=== PATIENT | female | born 1955 | race African-American/Black ===

== ENCOUNTER 2017-11-14 13:52 | Inpatient (IN) | payer MEDICARE, MEDICAID ==
[2017-11-14 14:30] LABS: HEMATOCRIT 49.4 % (36.0-47.0); HEMOGLOBIN 16.1 g/dL (12.0-15.5); MEAN CORPUSCULAR HEMOGLOBIN 25.5 pg (27.0-33.4); MEAN CORPUSCULAR HGB CONC 32.6 g/dL (32.0-36.0); MEAN CORPUSCULAR VOLUME 78 fl (80-97); PLATELET COUNT 338 10^3/uL (150-450); RED BLOOD COUNT 6.33 10^6/uL (3.72-5.28); WHITE BLOOD COUNT 18.8 10^3/uL (4.0-10.5)
[2017-11-14 14:40] LABS: ALANINE AMINOTRANSFERASE 18 U/L (9-52); ALKALINE PHOSPHATASE 127 U/L (38-126); ASPARTATE AMINO TRANSFERASE 58 U/L (14-36); BILIRUBIN,DIRECT 0.5 mg/dL (0.0-0.4); BLOOD UREA NITROGEN 34 mg/dL (7-20); CALCIUM 10.6 mg/dL (8.4-10.2); CHLORIDE 98 mmol/L (98-107); CREATINE KINASE 897 U/L (30-135); GLUCOSE 380 mg/dL (75-110); POTASSIUM 3.8 mmol/L (3.6-5.0); TOTAL PROTEIN 8.4 g/dL (6.3-8.2)
[2017-11-14 14:45] LABS: CARBON DIOXIDE 14 mmol/L (22-30); SODIUM 143.2 mmol/L (137-145)
[2017-11-14 14:46] LABS: ANION GAP 31 (5-19)
[2017-11-14] MEDS ORDERED: NORMAL SALINE 1000 ML 1,000 ML IV PRN (14:51)
--- NOTE | 2017-11-14 14:58 | ER Document Report ---
ED Neuro Symptoms/Deficit - General Chief Complaint: Altered Mental Status Stated Complaint: ALTERED MENTAL STATUS Time Seen by Provider: 11/14/17 14:15 Notes: The patient is a 62-year-old female, past medical history prior CVA with mild residual left-sided weakness, presents by EMS after 4 days of altered mental status and worsening left-sided weakness. She also has a forced left gaze palsy. Patient is confused and unable to provide any additional history. Son is in the ER and is deaf, but some history obtained using Close. Patient denies any headache, chest pain, shortness of breath, fevers or urinary symptoms. TRAVEL OUTSIDE OF THE [place] IN LAST 30 DAYS: No - Related Data Allergies/Adverse Reactions: No Known Allergies Allergy (Unverified 10/19/14 18:46) Past Medical History - General Information source: Patient, Relative - son Cannot obtain history due to: Altered mental status - Social History Smoking Status: Unknown if Ever Smoked Family History: Reviewed & Not Pertinent - Past Medical History Cardiac Medical History: Reports: Hx Hypercholesterolemia, Hx Hypertension Neurological Medical History: Reports: Hx Cerebrovascular Accident Endocrine Medical History: Reports: Hx Diabetes Mellitus Type 2 - Immunizations Hx Diphtheria, Pertussis, Tetanus Vaccination: Yes Review of Systems - Review of Systems -: Yes ROS unobtainable due to patient's medical condition Physical Exam - Notes Notes: PHYSICAL EXAMINATION: GENERAL: No acute distress. HEAD: Atraumatic, normocephalic. EYES: Forced left gaze palsy. Pupils equal round and reactive to light, sclera anicteric, conjunctiva are normal. ENT: nares patent, oropharynx clear without exudates. Moist mucous membranes. NECK: Normal range of motion, supple without lymphadenopathy LUNGS: Breath sounds clear to auscultation bilaterally and equal. No wheezes rales or rhonchi. HEART: Regular rate and rhythm without murmurs ABDOMEN: Soft, nontender, normoactive bowel sounds. No guarding, no rebound. No masses appreciated. EXTREMITIES: 5/5 strength in RUE and RLE. Strong distal pulses in all 4 extremities. Contracted LUE. Unable to move LUE or LLE. NEUROLOGICAL: Decreased sensation in LUE and LLE. PSYCH: Normal mood, normal affect. SKIN: Warm, Dry, normal turgor, no rashes or lesions noted. Course - Re-evaluation Re-evalutation: Patient with a forced left gaze palsy and increased weakness of her left arm and legs with sensory loss. CT head shows chronic changes, but no acute findings. Her last known normal was 4 days ago, so she is not a TPA candidate. ABCD2 score is 7. Patient also is found to have CHRISTELLE and rhabdo, most likely from immobility as she lives by herself. She has a leukocytosis of 18, but her chest x-ray did not show any acute findings. Her son is concerned that she is unable to take care of herself. Pt continues to urinate just before a straight cath could be placed. Urine is still pending, but Rocephin started due to tachycardia, leukocytosis and foul-smelling urine on bed. Will continue to try to obtain. Pt intermittently agitated and pulling off her monitoring equipment. Small doses of haldol provided to patient to help keep her safe. 11/14/17 18:[address] Martinez and will admit patient as inpatient to [facility]. - Laboratory Result Diagrams: 11/14/17 13:27 11/14/17 13:27 Laboratory results interpreted by me: 11/14/17 11/14/17 13:27 14:05 Carbon Dioxide 14 L Anion Gap 31 H BUN 34 H Creatinine 1.77 H Est GFR ( Amer) 35 L Est GFR (Non-Af Amer) 29 L Glucose 380 H POC Glucose 357 H Calcium 10.6 H Direct Bilirubin 0.5 H AST 58 H Alkaline Phosphatase 127 H Creatine Kinase 897 H Total Protein 8.4 H - Diagnostic Test Radiology reviewed: Image reviewed, Reports reviewed Radiology results interpreted by me: Head CT: chronic changes worsening from prior study. No acute findings. CXR: NAD - EKG Interpretation by Me EKG shows normal: Sinus rhythm, [place], Intervals, QRS Complexes, ST-T Waves Rate: Tachycardia ED Alteplase Inc/Exc Criteria - Date/Time patient last known well: Date/Time: 11/10/17 - Date/Time patient arrived in ED: _: 11/14/17 14:00 - Inclusion Criteria: 1: Patient presented to ED within 3 hours of acute ischemic stroke symptom onset ? -: No 2: Did baseline CT exclude intracranial hemorrhage and/or other risk factors? -: Yes 3: Is the age of the patient 18 years of age or greater? -: No : If any of the above questions are answered "NO" then stop, patient is not a candidate for Alteplase, : If all of the above questions are answered "YES" then continue with Exclusion Criteria. - Exclusion Criteria: 1: Is there evidence of intracranial hemorrhage on baseline CT? 2: Is there suspicion of subarachnoid hemorrhage (even if CT negative)? 3: Is there a history of serious head trauma, recent previous stroke or CO within 3 months? 4: Does the patient have a clinical presentation consistent with CO or post-CO pericarditis? 5: Is there history of intracranial hemorrhage? 6: On repeated measurement is Systolic BP greater than 185mmHg or Diastolic BP greater that 110 mmHg and is aggressive treatment needed to reduce blood pressure to these limits (e.g. constant infusion of an anti-hypertensive)? 7: Did the patient awake with stroke symptoms? 8: Has the patient had a lumbar puncture or an arterial puncture at a non- compressile site within 7 days? 9: With in the last 14 days did the patient have surgery or major trauma? 10: Is the patient or less than 2 weeks? 11: Was there any active bleeding or acute trauma? 12: Does the patient have intracranial neoplasm, arteriovenous malformation or aneurysm? 13: Does the patient have abnormal glucose (less than 50 or greater than 400mg/ dl)? Record glucose in Comment. 14: Patient has rapidly improving symptoms at the time Alteplase is to be Administered. 15: Does the patient have any risks for bleeding, including but not limited to: a.: Current use of Coumadin with PT greater than 15 seconds or INR greater than 1.7. b.: Current use of Pradaxa (Dabigatran). c.: Heparin administereed within the past 48 hours and PTT elevated. d.: Platelet count less than 100,000/mm. e.: Major surgery or serious trauma within 14 days. f.: Gastrointestinal or gynecological urinary bleeding within 14 days. g.: Myocardial Infarction (CO) within 3 months. : If the answer to any of the above questions is "YES" then stop, the patient is not a candidate for Alteplase. : If the answer to all of the above questions is "NO" then the patient may be eligible for the Administration of Alteplase. : If the patient is noted to have seizure activity at onset of Stroke symptoms; Consult Neurologist for further evaluation. - The patient is: -: Included and is eligible to receive Alteplase. *Initiate bed placement at higher level of care* --: No Reviewd risks & benefits of thrombolytic therapy: I have reviewed the risks and benefits of thrombolytic therapy with the patient and/or his/her family. Yes -: Excluded and not eligible to receive Alteplase for the above exclusions. -: Excluded and not eligible to receive Alteplase for other reasons (specify in comments): - Diagnosis of TIA: -: Patient presented with transient symptoms that are now resolved and no other neurologic findings are currently present. List symptoms in comments. -: Patient is NOT a candidate for tPA. -: ____(put name in comment) has been consulted for admission and continued evaluation of risk factor assessment. ED NIH Stroke Scale - NIH Stroke Scale When completed:: Before Alteplase *: 1. NIH scale should be completed with appropriate accompanying assessment tools. *: 2. The NIH should reflect what the patient is capable of doing and should not be coached by the clinician. 1a. Level of Consciousness: 0=Alert;keenly responsive -: 1=Drowsy -: 2=Obtunded -: 3=Coma/unresponsive or reflex to noxious stimuli. 1a. Responses: 0 1b. Orientation Questions: a. What month is it? -: b. How old are you? -: 0=Answers both questions correctly. -: 1=Answers one question correctly or patient is intubated or has orotracheal trauma. -: 2=Answers neither question correctly. 1b. Responses: 2 1c. Response to commands: a. Open and close eyes? -: b. Director Internal Communications and release hand? -: Credit is given despite weakness. Demonstration of task is permitted. Substitute command if hands cannot be used. -: 0=Performs both tasks correctly -: 1=Performs one task correctly -: 2=Performs neither task correctly 1c. Responses: 0 2. Gaze: Establish eye contact and instruct patient to "Follow my finger" -: 0=Normal -: 1=Partial gaze palsy. Gaze is abnormal in one or both eyes, but where forced deviation or total gaze paresis is not present. -: 2=Forced deviation or total gaze paresis. 2. Responses: 2 3. Visual Schaeffer: Sees fingers in all four quadrants. -: 0=No visual loss. -: 1=Partial hemianopsia. -: 2=Complete hemianopsia. -: 3=Bilateral hemianopsia (including Cortical blindness) 3. Responses: 0 4. Facial Movement: Instruct patient to: -: a. Show me your teeth -: b. Raise your eyebrows -: c. Close your eyes -: d. Smile -: 0=Normal symmetrical movement -: 1=Minor paralysis (flattened nasolabial fold, asymmetry on smiling). -: 2=Partial paralysis (total or near total paralysis of lower face). -: 3=Complete paralysis of upper and lower face 4. Responses: 1 5. Motor functions (left arm): Alternate sides and extend each arm with palms down (90 degrees if sitting or 45 degrees for supine). -: 0=No drift;limb holds for full 10 seconds. -: 1=Drift; limb holds but drifts down before full 10 seconds, but does not hit bed. -: 2=Some effort against gravity; limb cannot get to or maintain position. -: 3=No effort against gravity; limb falls. -: 4=No movement. -: UN=Amputation, joint fusion, explain in comments. 5. Responses (left arm): 3 5. Motor Functions (right arm): Alternate sides and extend each arm with palms down (90 degrees if sitting or 45 degrees for supine). -: 0=No drift;limb holds for full 10 seconds. -: 1=Drift; limb holds but drifts down before full 10 seconds, but does not hit bed. -: 2=Some effort against gravity; limb cannot get to or maintain position. -: 3=No effort against gravity; limb falls. -: 4=No movement. -: UN=Amputation, joint fusion, explain in comments. 5. Responses (right arm): 0 6. Motor Functions (left leg): With patient lying supine, alternate sides and extend each leg (30 degrees always while supine). -: 0=No drift, leg holds position for full 5 seconds -: 1=Drift; leg falls before full 5 seconds but does not hit bed. -: 2=Some effort against gravity, leg falls to bed but some effort against gravity. -: 3=No effort against gravity, leg falls to bed immediately. -: 4=No movement. -: UN=Amputation, joint fusion; explain in comments. 6. Responses (left leg): 3 6. Motor Functions (right leg): With patient lying supine, alternate sides and extend each leg (30 degrees always while supine). -: 0=No drift, leg holds position for full 5 seconds -: 1=Drift; leg falls before full 5 seconds but does not hit bed. -: 2=Some effort against gravity, leg falls to bed but some effort against gravity. -: 3=No effort against gravity, leg falls to bed immediately. -: 4=No movement. -: UN=Amputation, joint fusion; explain in comments. 6. Responses (right leg): 0 7. Limb Ataxia: With eyes open instruct patient to: -: a. "Touch your finger to your nose". -: b. "Touch your heel to your bullard" -: 0=Absent -: 1=Present in one limb. -: 2=Present in two limbs. -: UN=Amputation or joint fusion; explain in comments. 7. Responses: 0 8. Sensory: Test sensation using pinprick or noxious stimuli. Test as many body parts as possible. -: 0=Normal;no sensory loss -: 1=Mile to moderate sensory loss (patient feels pin prick but is less sharp on affected side). -: 2=Severe or total sensory loss. 8. Responses: 1 9. Best Language: Instruct patient to: -: a. "Describe what you see in this picture." -: b. "Name the items in this picture." -: c. "Read these sentences." -: 0=No aphasia, normal -: 1=Mild to moderate aphasia. -: 2=Severe aphasia -: 3=Mute, global aphasia, no usable speech or auditory comprehension. 9. Responses: 2 10. Articulation, Dysarthia: Instruct patient to: -: "Read these words" or "Repeat these words" -: 0=Normal -: 1=Mild to moderate; patient may slur some words but can be understood without difficulty. -: 2=Severe; patients speech so slurred as to be unintelligible in the absence of dysphasia. -: UN=Intubated or other physical barrier, explain in comments. 10. Responses: 2 11. Extinction or inattention: 0=No abnormality -: 1= Visual, tactile, auditory, spatial, or personal inattention or extinction to bilateral simulation in one or the sensory modalities. -: 2=Profound ej-inattention or ej-inattention to more than one modality; does not recognize own hand. 11. Responses: 0 Total Score: 16 Discharge - Discharge Clinical Impression: CHRISTELLE (acute kidney injury) CVA (cerebral vascular accident) Qualifiers: CVA mechanism: unspecified Qualified Code(s): I63.9 - Cerebral infarction, unspecified Rhabdomyolysis Qualifiers: Rhabdomyolysis type: non-traumatic Qualified Code(s): M62.82 - Rhabdomyolysis Condition: Stable Disposition: ADMITTED INPATIENT Admitting Provider: [facility] Admitted: [facility]
[2017-11-14 14:59] LABS: ABSOLUTE LYMPHOCYTES# (MANUAL) 1.1 10^3/uL (0.5-4.7); ABSOLUTE MONOCYTES # (MANUAL) 0.4 10^3/uL (0.1-1.4); ABSOLUTE NEUTROPHILS# (MANUAL) 17.3 10^3/uL (1.7-8.2); BASOPHILS % (MANUAL) 0 % (0-2); EOSINOPHILS % (MANUAL) 0 % (0-6); LYMPHOCYTES % (MANUAL) 6 % (13-45); MONOCYTES % (MANUAL) 2 % (3-13); SEGMENTED NEUTROPHILS % (MAN) 92 % (42-78); TOTAL CELLS COUNTED 100
--- NOTE | 2017-11-14 14:59 | EKG REPORT ---
SEVERITY:- ABNORMAL ECG - SINUS RHYTHM LEFT ATRIAL ABNORMALITY LVH WITH SECONDARY REPOLARIZATION ABNORMALITY : Confirmed by: Cachorro Olivera MD 14-Nov-2017 14:59:11
[2017-11-14 15:03] LABS: TOXIC GRANULATION 1+; TOXIC VACUOLATION PRESENT
[2017-11-14 15:04] LABS: ANISOCYTOSIS SLIGHT; HYPOCHROMASIA SLIGHT; OVALOCYTES SLIGHT; PLATELET COMMENT ADEQUATE; PLATELET LARGE PRESENT; POIKILOCYTOSIS SLIGHT
--- NOTE | 2017-11-14 15:15 | RADIOLOGY REPORT (SQ) ---
EXAM DESCRIPTION: CHEST SINGLE VIEW COMPLETED DATE/TIME: 11/14/2017 2:52 pm REASON FOR STUDY: AMS, acute aphasia COMPARISON: 10/19/2014 EXAM PARAMETERS: NUMBER OF VIEWS: One view. TECHNIQUE: Single frontal radiographic view of the chest acquired. RADIATION DOSE: NA LIMITATIONS: None. FINDINGS: LUNGS AND PLEURA: No opacities, masses or pneumothorax. No pleural effusion. MEDIASTINUM AND HILAR STRUCTURES: No masses. Contour normal. HEART AND VASCULAR STRUCTURES: Heart normal in size. Normal vasculature. BONES: No acute findings. HARDWARE: None in the chest. OTHER: No other significant finding. IMPRESSION: NO ACUTE RADIOGRAPHIC FINDING IN THE CHEST. TECHNICAL DOCUMENTATION: JOB ID: [id number] [employer]- All Rights Reserved Reading location - IP/workstation name: [email or web address]
--- NOTE | 2017-11-14 15:20 | RADIOLOGY REPORT (SQ) ---
EXAM DESCRIPTION: CT HEAD WITHOUT COMPLETED DATE/TIME: 11/14/2017 3:03 pm REASON FOR STUDY: AMS, acute aphasia COMPARISON: 10/19/2014 TECHNIQUE: Axial images acquired through the brain without intravenous contrast. Images reviewed wi th bone, brain and subdural windows. Additional sagittal and coronal reconstructions were generated. Images stored on PACS. All CT scanners at this facility use dose modulation, iterative reconstruction, and/or weight based d osing when appropriate to reduce radiation dose to as low as reasonably achievable (ALARA). [facility]: Dose Right [facility]: CareDose [facility]: Dose Right [facility]: Teradose 4D [facility]: Smart Demo Lesson RADIATION DOSE: CT Rad equipment meets quality standard of care and radiation dose reduction techniq ues were employed. CTDIvol: 53.2 mGy. DLP: 964 mGy-cm.mGy. LIMITATIONS: None. FINDINGS: VENTRICLES: Prominent. CEREBRUM: No masses. No hemorrhage. No midline shift. Areas of low density in the white matter mos t likely due to chronic micro-vascular ischemic change. No evidence for acute infarction. CEREBELLUM: No masses. No hemorrhage. No alteration of density. No evidence for acute infarction. EXTRAAXIAL SPACES: Age-related involutional change. No fluid collections. No masses. ORBITS AND GLOBE: No intra- or extraconal masses. Normal contour of globe without masses. CALVARIUM: No fracture. PARANASAL SINUSES: No fluid or mucosal thickening. SOFT TISSUES: No mass or hematoma. OTHER: No other significant finding. IMPRESSION: CHRONIC CHANGES OF ATROPHY AND MICROVASCULAR ISCHEMIA. NO ACUTE PROCESS. THESE CHANGES ARE MILDLY PROGRESSED WHEN COMPARED 10/19/2014 EVIDENCE OF ACUTE STROKE: NO. TECHNICAL DOCUMENTATION: JOB ID: [id number] Quality ID # [id number]: Final reports with documentation of one or more dose reduction techniques (e.g., Au tomated exposure control, adjustment of the mA and/or kV according to patient size, use of iterative reconstruction technique) 2010 [employer]- All Rights Reserved Reading location - IP/workstation name: [email or web address]
[2017-11-14] MEDS ORDERED: CEFTRIAXONE 1 GM/D5W RTU 1 GM/50 ML RTUPB IV ONE (15:24)
[2017-11-14] MEDS ORDERED: ASPIRIN 325 MG TABLET PO ONE (15:42)
[2017-11-14] MEDS ORDERED: CEFTRIAXONE INJ 1000 MG VIAL IV ONE (16:00)
[2017-11-14] MEDS ORDERED: ASPIRIN 300 MG SUPP, RECTAL PR ONE (16:50)
[2017-11-14] MEDS ORDERED: HALOPERIDOL LACTATE INJ 5 MG/1 ML VIAL IV ONE (16:59)
[2017-11-14] MEDS ORDERED: POTASSI CL 10 MEQ/D5-1/2NS 1L 10 MEQ/1,000 ML RTUINJ IV PRN (20:02)
[2017-11-14] MEDS ORDERED: DEXTROSE 50%-WATER 25 GM/50 ML DISP.SYRIN IV PRN ×2 (20:13)
[2017-11-14] MEDS ORDERED: GLUCAGON,HUMAN RECOMB 1 MG INJ IM PRN (20:13)
[2017-11-14] MEDS ORDERED: DEXTROSE 40% GEL 15 GM TUBE PO PRN ×2 (20:13)
[2017-11-14] MEDS ORDERED: NITROGLYCERIN/D5W 50 MG/250 ML RTUINJ IV PRN (20:15)
[2017-11-14 20:34] LABS: LIPASE 45.5 U/L (23-300); PHOSPHORUS 6.5 mg/dL (2.5-4.5)
--- NOTE | 2017-11-14 20:38 | RADIOLOGY REPORT (SQ) ---
EXAM DESCRIPTION: CHEST SINGLE VIEW COMPLETED DATE/TIME: 11/14/2017 8:26 pm REASON FOR STUDY: SEPSIS COMPARISON: Chest films 10/19/2014, 11/14/2017 EXAM PARAMETERS: NUMBER OF VIEWS: One view. TECHNIQUE: Single frontal radiographic view of the chest acquired. RADIATION DOSE: NA LIMITATIONS: None. FINDINGS: LUNGS AND PLEURA: No opacities, masses or pneumothorax. No pleural effusion. MEDIASTINUM AND HILAR STRUCTURES: No masses. Contour normal. HEART AND VASCULAR STRUCTURES: Heart normal in size. Normal vasculature. BONES: No acute findings. HARDWARE: None in the chest. OTHER: No other significant finding. IMPRESSION: NO ACUTE RADIOGRAPHIC FINDING IN THE CHEST. TECHNICAL DOCUMENTATION: JOB ID: [id number] [email or web address]- All Rights Reserved Reading location - IP/workstation name: [email or web address]
[2017-11-14 20:51] LABS: FREE T4 (FREE THYROXINE) 1.51 ng/dL (0.78-2.19)
[2017-11-14 21:05] LABS: THYROID STIMULATING HORMONE 0.82 uIU/mL (0.47-4.68)
[2017-11-14 21:07] LABS: PROTHROMBIN TIME 15.3 SEC (11.4-15.4)
[2017-11-14 21:08] LABS: INTERNATIONAL RATION (INR) 1.15; PARTIAL THROMBOPLASTIN TIME 29.2 SEC (23.5-35.8)
[2017-11-15 03:02] LABS: ALANINE AMINOTRANSFERASE 28 U/L (9-52); ALBUMIN 4.1 g/dL (3.5-5.0); ALKALINE PHOSPHATASE 100 U/L (38-126); ASPARTATE AMINO TRANSFERASE 49 U/L (14-36); BILIRUBIN,DIRECT 0.5 mg/dL (0.0-0.4); BILIRUBIN,TOTAL 0.7 mg/dL (0.2-1.3); BLOOD UREA NITROGEN 31 mg/dL (7-20); CALCIUM 9.4 mg/dL (8.4-10.2); GLUCOSE 327 mg/dL (75-110); TOTAL PROTEIN 7.1 g/dL (6.3-8.2)
[2017-11-15 03:07] LABS: CARBON DIOXIDE 12 mmol/L (22-30); CHLORIDE 107 mmol/L (98-107); SODIUM 148.9 mmol/L (137-145)
[2017-11-15 03:19] LABS: HEMOGLOBIN 14.7 g/dL (12.0-15.5); MEAN CORPUSCULAR HEMOGLOBIN 25.1 pg (27.0-33.4); MEAN CORPUSCULAR HGB CONC 31.9 g/dL (32.0-36.0); MEAN CORPUSCULAR VOLUME 79 fl (80-97); PLATELET COUNT 284 10^3/uL (150-450); RED BLOOD COUNT 5.84 10^6/uL (3.72-5.28); RED CELL DISTRIBUTION WIDTH 15.1 % (11.5-14.0); WHITE BLOOD COUNT 17.1 10^3/uL (4.0-10.5)
[2017-11-15 03:21] LABS: ANION GAP 30 (5-19)
[2017-11-15 03:32] LABS: ABSOLUTE LYMPHOCYTES# (MANUAL) 0.5 10^3/uL (0.5-4.7); ABSOLUTE MONOCYTES # (MANUAL) 0.9 10^3/uL (0.1-1.4); ABSOLUTE NEUTROPHILS# (MANUAL) 15.7 10^3/uL (1.7-8.2); BAND NEUTROPHILS % (MANUAL) 1 % (3-5); BASOPHILS % (MANUAL) 0 % (0-2); EOSINOPHILS % (MANUAL) 0 % (0-6); LYMPHOCYTES % (MANUAL) 3 % (13-45); MONOCYTES % (MANUAL) 5 % (3-13); SEGMENTED NEUTROPHILS % (MAN) 91 % (42-78); TOTAL CELLS COUNTED 100
[2017-11-15 03:34] LABS: ANISOCYTOSIS SLIGHT; OVALOCYTES SLIGHT; PLATELET COMMENT ADEQUATE; POIKILOCYTOSIS SLIGHT; SCHISTOCYTES SLIGHT
[2017-11-15 03:35] LABS: HYPOCHROMASIA 1+
[2017-11-15 05:47] LABS: APPEARANCE,URINE CLEAR; BILIRUBIN,URINE NEGATIVE (NEGATIVE); COLOR,URINE STRAW; GLUCOSE, URINE >=500 mg/dL (NEGATIVE); KETONES,URINE 80 mg/dL (NEGATIVE); LEUKOCYTE ESTERASE,URINE NEGATIVE (NEGATIVE); NITRITE,URINE NEGATIVE (NEGATIVE); PROTEIN,URINE 100 mg/dL (NEGATIVE); URINE SPECIFIC GRAVITY 1.017; UROBILINOGEN,URINE NEGATIVE mg/dL (<2.0)
[2017-11-15 06:01] LABS: URINE AMPHETAMINES SCREEN NEGATIVE; URINE COCAINE SCREEN NEGATIVE; URINE MARIJUANA (THC) SCREEN NEGATIVE; URINE METHADONE SCREEN NEGATIVE; URINE PHENCYCLIDINE SCREEN NEGATIVE
[2017-11-15 06:02] LABS: URINE BARBITURATES SCREEN NEGATIVE
[2017-11-15 06:03] LABS: URINE BENZODIAZEPINES SCREEN NEGATIVE
[2017-11-15 08:23] LABS: UR PRO/CREAT RATIO RESULT 1.4 mg/mg (0.0-0.2); URINE CREATININE 49.1 mg/dL (15-278); URINE PROTEIN 70.6 mg/dL (<12)
[2017-11-15] MEDS ORDERED: ASPIRIN 325 MG TABLET, ENT COATED PO SCH (10:00)
[2017-11-15] MEDS: NORMAL SALINE 1000 ML 1,000 ML IV PRN (10:18)
[2017-11-15] MEDS: ENOXAPARIN SODIUM INJ 40 MG/0.4 ML DISP.SYRIN SUBCUT SCH (10:26)
--- NOTE | 2017-11-15 12:03 | RADIOLOGY REPORT (SQ) ---
EXAM DESCRIPTION: MRI HEAD WITHOUT COMPLETED DATE/TIME: 11/15/2017 11:47 am REASON FOR STUDY: CVA COMPARISON: 10/19/2014 TECHNIQUE: Multiplanar imaging includes non-contrasted T1, T2, FLAIR, and diffusion with ADC map seq uences. Images stored on PACS. LIMITATIONS: None. FINDINGS: ANATOMY: No anomalies. Normal vascular flow voids. Pituitary fossa normal. CSF SPACES: Atrophy induced prominence of ventricles and CSF spaces. CEREBRUM: High signal intensity lesions scattered throughout the white matter on FLAIR imaging with d istribution suggesting micro-vascular ischemic changes. No evidence of hemorrhage, mass, or extraaxi al fluid collection. POSTERIOR FOSSA: No signal alteration. No hemorrhage. No edema, masses or mass effect. Internal lexy tory canals, cerebello-pontine angles, mastoids normal. DIFFUSION IMAGING: Multiple small foci of restricted diffusion extending through the deep white matte r of the left frontal, parietal, and occipital lobes compatible with watershed distribution. No larg e territory infarction. ORBITS: No masses. Globes normal. PARANASAL SINUSES: No fluid levels. Mucosa normal. OTHER: No other significant finding. IMPRESSION: MULTIPLE SMALL FOCI OF RESTRICTED DIFFUSION INVOLVING THE LEFT CEREBRAL HEMISPHERE IN A WATERSHED DISTRIBUTION DETAILED ABOVE. NO LARGE TERRITORY INFARCTION, HEMORRHAGE, OR MASS LESION. EVIDENCE OF ACUTE STROKE: YES. LEFT WATERSHED DISTRIBUTION. TECHNICAL DOCUMENTATION: JOB ID: [id number] [employer]- All Rights Reserved Reading location - IP/workstation name: [email or web address]
[2017-11-15] MEDS: INSULIN LISPRO 100 UNIT/ML 3 ML VIAL SUBCUT PRN ×2 (13:01→16:49)
--- NOTE | 2017-11-15 13:12 | PDOC H&P ---
History of Present Illness Admission Date/PCP: 11/14/17 19:13 WANDA THOMAS MD History of Present Illness: DOMO BUCHANAN is a 62 year old female she has a history of CVA with left-sided paralysis, poorly controlled diabetes mellitus type 2, poorly controlled blood pressure, she was in the emergency room for evaluation of altered mental status , no history could be obtained from this patient. In the emergency room CT head was done, it was nondiagnostic, MRI brain was done this morning it showed multiple small foci of restricted diffusion involving the left cerebral hemisphere in a watershed distribution involving the frontal,parietal the occipital lobes compatible with acute stroke., She has old stroke with left- sided paralysis suggesting right cerebral infarction, she now has new left cerebral infarction. I spoke to patient's brother in [place] about prognosis and patient's condition, she is presently full code, family is yet to decide the CODE STATUS. The blood work that was done in the emergency room showed elevated CPK suggesting rhabdomyolysis probably from laying in the floor for a while. There is no family available to obtain history from patient is virtually nonverbal at this point, she will respond to noxious stimulus like sternal pressure. The hemoglobin A1c is more than 14 suggesting poorly controlled diabetes mellitus, there is leukocytosis, the chest x-ray is negative for any pneumonia, the UA is not impressive to suggest UTI. Patient is extremely noncompliant, I have not seen her in 2 years, I am not sure she follows with another physician she probably has not been taking her medication regularly Past Medical History Cardiac Medical History: Reports: Hyperlipidema, Hypertension Endocrine Medical History: Reports: Diabetes Mellitus Type 2 Social History Smoking Status: Unknown if Ever Smoked Frequency of Alcohol Use: Occasional Hx Recreational Drug Use: No Hx Prescription Drug Abuse: No Family History Family History: Reviewed & Not Pertinent Parental Family History Reviewed: Yes Children Family History Reviewed: Yes Sibling(s) Family History Reviewed.: Yes Medication/Allergy Home Medications: Aspirin [Ecotrin 325 mg EC Tablet] 325 mg PO DAILY #90 tabec 10/23/14 Atorvastatin Calcium [Lipitor 80 mg Tablet] 80 mg PO QHS #30 tablet 10/23/14 Docusate Sodium [Colace 100 mg Capsule] 100 mg PO BID #60 capsule 10/23/14 Famotidine [Pepcid 20 mg Tablet] 20 mg PO Q12 #60 tablet 10/23/14 Glipizide [Glucotrol 5 mg Tablet] 5 mg PO BIDACBS #60 tablet 10/23/14 Lisinopril [Prinivil 10 mg Tablet] 20 mg PO Q12 30 Days tablet 10/23/14 Metformin HCl [Glucophage 500 mg Tablet] 500 mg PO QPM #30 tablet 10/23/14 Metoprolol Tartrate [Lopressor 50 mg Tablet] 50 mg PO Q12 #60 tablet 10/23/14 Nifedipine [Procardia XL 60 mg Tablet] 60 mg PO DAILY #30 tab.er.24 10/23/14 Nifedipine [Procardia Xl 30 mg Tablet] 30 mg PO DAILY #30 tab.er.24 10/23/14 Allergies/Adverse Reactions: No Known Allergies Allergy (Unverified 10/19/14 18:46) Review of Systems ROS unobtainable: Due to mental status - She is nonverbal Physical Exam Vital Signs: Temp Pulse Resp BP Pulse Ox 98.9 F 81 26 H 141/77 H 94 11/15/17 08:08 11/15/17 08:08 11/15/17 08:08 11/15/17 08:08 11/15/17 08:08 Intake & Output 11/14/17 11/15/17 11/16/17 06:59 06:59 06:59 Intake Total 757 Balance 757 Weight 67.7 kg General appearance: PRESENT: other - Alert nonverbal Eye exam: PRESENT: PERRLA Respiratory exam: PRESENT: clear to auscultation barrie Cardiovascular exam: PRESENT: +S1, +S2 GI/Abdominal exam: PRESENT: soft Neurological exam: PRESENT: altered, motor sensory deficit - Left-sided paralysis,right side weakness Results Laboratory Results: 11/15/17 02:23 11/15/17 02:23 11/14/17 11/15/17 11/15/17 20:40 02:23 02:23 WBC 17.1 H RBC 5.84 H Hgb 14.7 Hct 46.0 MCV 79 L MCH 25.1 L MCHC 31.9 L RDW 15.1 H Plt Count 284 Seg Neutrophils % Not Reportable Lymphocytes % Not Reportable Monocytes % Not Reportable Eosinophils % Not Reportable Basophils % Not Reportable Absolute Neutrophils Not Reportable Absolute Lymphocytes Not Reportable Absolute Monocytes Not Reportable Absolute Eosinophils Not Reportable Absolute Basophils Not Reportable Sodium 148.9 H Potassium 4.0 Chloride 107 Carbon Dioxide 12 L Anion Gap 30 H BUN 31 H Creatinine 1.32 H Est GFR ( Amer) 49 L Est GFR (Non-Af Amer) 41 L Glucose 327 H Calcium 9.4 Magnesium 1.7 Total Bilirubin 0.7 AST 49 H ALT 28 Alkaline Phosphatase 100 Ammonia 15.7 Total Protein 7.1 Albumin 4.1 Urine Color Urine Appearance Urine pH Ur Specific [place] Urine Protein Urine Glucose (UA) Urine Ketones Urine Blood Urine Nitrite Ur Leukocyte Esterase Urine WBC (Auto) Urine RBC (Auto) 11/15/17 05:00 WBC RBC Hgb Hct MCV MCH MCHC RDW Plt Count Seg Neutrophils % Lymphocytes % Monocytes % Eosinophils % Basophils % Absolute Neutrophils Absolute Lymphocytes Absolute Monocytes Absolute Eosinophils Absolute Basophils Sodium Potassium Chloride Carbon Dioxide Anion Gap BUN Creatinine Est GFR ( Amer) Est GFR (Non-Af Amer) Glucose Calcium Magnesium Total Bilirubin AST ALT Alkaline Phosphatase Ammonia Total Protein Albumin Urine Color STRAW Urine Appearance CLEAR Urine pH 5.0 Ur Specific [place] 1.017 Urine Protein 100 H Urine Glucose (UA) >=500 H Urine Ketones 80 H Urine Blood MODERATE H Urine Nitrite NEGATIVE Ur Leukocyte Esterase NEGATIVE Urine WBC (Auto) 0 Urine RBC (Auto) 1 11/14/17 11/14/17 11/14/17 19:50 19:50 19:50 Creatine Kinase 872 H CK-MB (CK-2) Troponin I 0.069 NT-Pro-B Natriuret Pep 5630 H 11/14/17 11/15/17 11/15/17 19:50 02:23 02:23 Creatine Kinase 809 H CK-MB (CK-2) 10.20 H 9.38 H Troponin I NT-Pro-B Natriuret Pep 11/15/17 11/15/17 07:50 07:50 Creatine Kinase 717 H CK-MB (CK-2) 7.67 H Troponin I NT-Pro-B Natriuret Pep Impressions: Head CT 11/14/17 14:16 IMPRESSION: CHRONIC CHANGES OF ATROPHY AND MICROVASCULAR ISCHEMIA. NO ACUTE PROCESS. THESE CHANGES ARE MILDLY PROGRESSED WHEN COMPARED 10/19/2014 EVIDENCE OF ACUTE STROKE: NO. Chest X-Ray 11/14/17 20:08 IMPRESSION: NO ACUTE RADIOGRAPHIC FINDING IN THE CHEST. Head MRI 11/15/17 00:00 IMPRESSION: MULTIPLE SMALL FOCI OF RESTRICTED DIFFUSION INVOLVING THE LEFT CEREBRAL HEMISPHERE IN A WATERSHED DISTRIBUTION DETAILED ABOVE. NO LARGE TERRITORY INFARCTION, HEMORRHAGE, OR MASS LESION. EVIDENCE OF ACUTE STROKE: YES. LEFT WATERSHED DISTRIBUTION. Assessment & Plan - Diagnosis (1) Cerebral infarction, left hemisphere Is this a current diagnosis for this admission?: Yes Plan: She has extensive CVA involving left hemisphere, management per stroke protocol patient's son is deaf, mother's condition was discussed with him through senior sales associate using martti. She has extensive stroke involving the left cerebral hemisphere, I discussed the option of DNR with patient's son but he wants his mother to be a full code. Patient is presently a full code, she is still lethargic, not take medication orally at this point because of risk of aspiration (2) Rhabdomyolysis Qualifiers: Rhabdomyolysis type: non-traumatic Qualified Code(s): M62.82 - Rhabdomyolysis Is this a current diagnosis for this admission?: Yes Plan: Treated with IV fluid (3) Hypertension Qualifiers: Hypertension type: essential hypertension Qualified Code(s): I10 - Essential (primary) hypertension Is this a current diagnosis for this admission?: Yes (4) Uncontrolled diabetes mellitus Qualifiers: Diabetes mellitus type: type 2 Diabetes mellitus retirement insulin use: without moth exterminator use Diabetes mellitus complication status: with circulatory complication Diabetes mellitus complication detail: with other circulatory complications Qualified Code(s): E11.59 - Type 2 diabetes mellitus with other circulatory complications; E11.65 - Type 2 diabetes mellitus with hyperglycemia ; E11.65 - Type 2 diabetes mellitus with hyperglycemia; E11.65 - Type 2 diabetes mellitus with hyperglycemia; E11.65 - Type 2 diabetes mellitus with hyperglycemia Is this a current diagnosis for this admission?: Yes
[2017-11-15] MEDS ORDERED: ASPIRIN 300 MG SUPP, RECTAL PR ONE (15:30)
[2017-11-15] MEDS: CEFTRIAXONE 2 GM/D5W RTU 2 GM/50 ML RTUPB IV SCH (17:01)
[2017-11-16 05:12] LABS: HEMATOCRIT 45.6 % (36.0-47.0); HEMOGLOBIN 14.7 g/dL (12.0-15.5); MEAN CORPUSCULAR HEMOGLOBIN 25.3 pg (27.0-33.4); MEAN CORPUSCULAR HGB CONC 32.2 g/dL (32.0-36.0); MEAN CORPUSCULAR VOLUME 79 fl (80-97); PLATELET COUNT 278 10^3/uL (150-450); RED BLOOD COUNT 5.79 10^6/uL (3.72-5.28); RED CELL DISTRIBUTION WIDTH 14.9 % (11.5-14.0); WHITE BLOOD COUNT 16.1 10^3/uL (4.0-10.5)
[2017-11-16 05:32] LABS: ABSOLUTE LYMPHOCYTES# (MANUAL) 0.3 10^3/uL (0.5-4.7); ABSOLUTE MONOCYTES # (MANUAL) 0.3 10^3/uL (0.1-1.4); ABSOLUTE NEUTROPHILS# (MANUAL) 15.5 10^3/uL (1.7-8.2); BAND NEUTROPHILS % (MANUAL) 2 % (3-5); BASOPHILS % (MANUAL) 0 % (0-2); EOSINOPHILS % (MANUAL) 0 % (0-6); LYMPHOCYTES % (MANUAL) 2 % (13-45); MONOCYTES % (MANUAL) 2 % (3-13); SEGMENTED NEUTROPHILS % (MAN) 94 % (42-78); TOTAL CELLS COUNTED 100
[2017-11-16 05:35] LABS: ALANINE AMINOTRANSFERASE 32 U/L (9-52); ALBUMIN 4.1 g/dL (3.5-5.0); ALKALINE PHOSPHATASE 102 U/L (38-126); ANISOCYTOSIS SLIGHT; ASPARTATE AMINO TRANSFERASE 33 U/L (14-36); BILIRUBIN,DIRECT 0.5 mg/dL (0.0-0.4); BILIRUBIN,TOTAL 0.6 mg/dL (0.2-1.3); BLOOD UREA NITROGEN 27 mg/dL (7-20); BURR CELLS SLIGHT; CALCIUM 9.8 mg/dL (8.4-10.2); GLUCOSE 230 mg/dL (75-110); PLATELET COMMENT ADEQUATE; POIKILOCYTOSIS SLIGHT; POTASSIUM 3.9 mmol/L (3.6-5.0)
[2017-11-16 05:41] LABS: CHLORIDE 118 mmol/L (98-107); SODIUM 155.3 mmol/L (137-145)
[2017-11-16] MEDS: NORMAL SALINE 1000 ML 1,000 ML IV PRN ×3 (05:58→23:49)
[2017-11-16 06:00] LABS: ANION GAP 29 (5-19)
[2017-11-16 06:04] LABS: CARBON DIOXIDE 8 mmol/L (22-30)
--- NOTE | 2017-11-16 08:17 | EKG REPORT ---
SEVERITY:- ABNORMAL ECG - SINUS RHYTHM LEFT ATRIAL ABNORMALITY LEFT AXIS DEVIATION LVH WITH SECONDARY REPOLARIZATION ABNORMALITY ANTERIOR INFARCT, AGE INDETERMINATE : Confirmed by: Zeke Lopez 16-Nov-2017 08:16:34
[2017-11-16] MEDS ORDERED: LABETALOL HCL INJ 20 MG/4 ML DISP.SYRIN IV PRN (09:01)
[2017-11-16 09:15] LABS: ARTERIAL BLOOD BASE EXCESS -15.1 mmol/L; ARTERIAL BLOOD H2CO3 0.67 mmol/L (1.05-1.35); ARTERIAL BLOOD HCO3 9.8 mmol/L (20-26); ARTERIAL BLOOD PCO2 22.4 mmHg (35-45); ARTERIAL BLOOD PH 7.26 (7.35-7.45); ARTERIAL BLOOD PO2 102.2 mmHg (80-100); ARTERIAL BLOOD TOTAL CO2 10.5 mmol/L (21-25)
[2017-11-16 09:16] LABS: ARTERIAL BLOOD FIO2 ROOM AIR
[2017-11-16] MEDS: ASPIRIN 300 MG SUPP, RECTAL PR SCH (10:58)
[2017-11-16] MEDS: ENOXAPARIN SODIUM INJ 40 MG/0.4 ML DISP.SYRIN SUBCUT SCH (11:01)
[2017-11-16] MEDS: INSULIN LISPRO 100 UNIT/ML 3 ML VIAL SUBCUT PRN ×2 (11:42→18:35)
[2017-11-16] MEDS: LABETALOL HCL INJ 20 MG/4 ML DISP.SYRIN IV PRN ×2 (13:55→18:30)
--- NOTE | 2017-11-16 16:23 | RADIOLOGY REPORT (SQ) ---
EXAM DESCRIPTION: CAROTID DOPPLER COMPLETED DATE/TIME: 11/16/2017 3:48 pm REASON FOR STUDY: cva COMPARISON: MRI brain 10/19/2014, 11/14/2017 Carotid Doppler 10/20/2014 CT brain 11/14/2017 TECHNIQUE: Grayscale ultrasound, Doppler velocity and spectra, and color Doppler images acquired of the extra-cranial carotid and vertebral arteries. Images stored on PACS. LIMITATIONS: None. FINDINGS: RIGHT CAROTID CCA Velocities: Within normal limits. ICA Velocities Peak systolic 0.43 m/s. End diastolic 0.7 m/s. Proximal ICA/CCA peak systolic ratio 0.9. Spectra normal. No significant plaque. LEFT CAROTID CCA Velocities: There are slow velocities in the left common carotid artery with R[place] formation, indicating very slow velocity. Virtually absent diastolic flow in the common carotid artery. This is worrisome for distal obstruction ICA Velocities Peak systolic 0.55 m/s. End diastolic 0.17 m/s. Proximal ICA/CCA peak systolic ratio 0.8. There are swallow velocities through left internal carotid artery, with R[place]leaux formation, indicati ng very slow velocity. Virtually absent diastolic flow in the left internal carotid artery. This is worrisome for distal obstruction, and in the high cervical carotid or skullbase. Findings were disc ussed with Dr. Martinez as a critical finding, 1600 hours 11/16/2017 VERTEBRAL ARTERIES: Antegrade flow. Normal waveforms. SUBCLAVIAN ARTERIES: Not evaluated OTHER: No other significant finding. IMPRESSION: No flow significant stenosis at the right carotid bifurcation. Patient has recent watershed infarct in the left hemisphere, and very slow flow in the left common ca rotid artery and internal carotid artery. Findings are worrisome for high-grade stenosis or occlusio n high in the left internal carotid artery at the skullbase. Consider CT angio of the neck and circl e of [place] for followup Antegrade pulsatile vertebral artery flow bilaterally RECOMMENDATION: Pertinent findings on the imaging study reported as a CRITICAL RESULT to WANDA BLANK MD at16:00 on 11/16/2017. Category of Critical Result: Critical stenosis versus thrombosis left internal carotid artery COMMENT: Quality ID #[id number]: Velocity criteria are extrapolated from the diameter data as defined by t he Society of Radiologists in Ultrasound Consensus Conference. Radiology 2003: 229; 340-346. TECHNICAL DOCUMENTATION: JOB ID: [id number] [employer]- All Rights Reserved Reading location - IP/workstation name: [email or web address]
--- NOTE | 2017-11-16 17:25 | RADIOLOGY REPORT (SQ) ---
EXAM DESCRIPTION: CTA NECK; CTA HEAD COMPLETED DATE/TIME: 11/16/2017 5:05 pm REASON FOR STUDY: abnormal doppler COMPARISON: Carotid Doppler 11/16/2017 MRI brain 11/15/2017 CT brain 11/14/2017 TECHNIQUE: Axial dynamic scanning technique with dynamic contrast enhancement through the extra-aircraft part assembler nial carotid and vertebral arteries. Multiplanar reconstruction. 3-D MIPS and Volume-rendered imag es acquired at the workstation and saved to PACS. Images are reviewed in soft tissue, bone, lung w indows. Axial dynamic scanning technique with dynamic contrast enhancement through the intra-cranial carotid and vertebral arteries. Multiplanar reconstruction. 3-D MIPS and Volume-rendered images acquired at the workstation and saved to PACS. Images are reviewed in soft tissue, bone, lung windows. All CT scanners at this facility use dose modulation, iterative reconstruction, and/or weight based d osing when appropriate to reduce radiation dose to as low as reasonably achievable (ALARA). [facility]: Dose Right [facility]: CareDose [facility]: Dose Right [facility]: Teradose 4D [facility]: Lumavita CONTRAST TYPE AND DOSE: contrast/concentration: Isovue 370.00 mg/ml; Total Contrast Delivered: 70.0 ml; Total Saline Delivered: 75.0 ml RENAL FUNCTION: Creatinine 1.2 LIMITATIONS: None. FINDINGS: Just beyond the left carotid bifurcation, the proximal left ICA appears occluded with clot . This is best shown on axial images 59-68. Left ICA is occluded throughout the high cervical, and skullbase regions. There is flow in the left carotid terminus by the left anterior clinoid intracran ially, related to patent anterior communicating and posterior communicating arteries. This report wa s called to Dr. Martinez, 1710 hours 11/16/2017. Visualized aortic arch is unremarkable. Origin of the brachiocephalic artery, left common carotid, a nd left subclavian arteries are patent. Incidental finding of a direct left vertebral artery origin off the aorta, an anatomic variant. The right subclavian artery is patent. Right vertebral artery is patent in the neck. The right common carotid artery, carotid bifurcation and cervical internal carotid artery unremarkabl e. Right external carotid artery unremarkable. The left common carotid artery and external carotid artery in the neck are unremarkable. Left vertebral artery is patent throughout the neck. The [place] demonstrates contrast enhancement of the left middle cerebral artery and anterio r cerebral artery through patent collaterals. Right intracranial internal carotid artery, anterior a nd middle cerebral arteries are patent. [place] demonstrates a patent left posterior communicating artery. Intracranial vertebral a rteries are diffusely small as is the basilar artery. Posterior cerebral arteries arise off the righ t carotid system on the right side, and basilar artery on the left. Soft tissue windows demonstrate multiple right-sided chronic appearing basal ganglia and thalamus inf arcts with chronic appearing bifrontal and biparietal small vessel ischemic change. Knee acute left deep periventricular white matter infarct seen on MRI 11/15/2017 is unchanged. Incidental finding of a 2.2 cm mass in the left lobe thyroid. 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 Intracranial [place] collaterals as above. No CT angio evidence of right carotid bifurcation disease. COMMENT: Pertinent findings on the imaging study reported as a CRITICAL RESULT to WANDA Garcia MD at17:18 on 11/16/2017. Category of Critical Result: Occlusion left high cervical internal carotid artery with clot Quality ID #195: Measurements of distal internal carotid diameter were used as the denominator for st enosis measurement. TECHNICAL DOCUMENTATION: JOB ID: [id number] Quality ID # 436: Final reports with documentation of one or more dose reduction techniques (e.g., Au tomated exposure control, adjustment of the mA and/or kV according to patient size, use of iterative reconstruction technique) 2010 [employer]- All Rights Reserved Reading location - IP/workstation name: [email or web address]
--- NOTE | 2017-11-16 17:25 | RADIOLOGY REPORT (SQ) ---
EXAM DESCRIPTION: CTA NECK; CTA HEAD COMPLETED DATE/TIME: 11/16/2017 5:05 pm REASON FOR STUDY: abnormal doppler COMPARISON: Carotid Doppler 11/16/2017 MRI brain 11/15/2017 CT brain 11/14/2017 TECHNIQUE: Axial dynamic scanning technique with dynamic contrast enhancement through the extra-cranberry grower nial carotid and vertebral arteries. Multiplanar reconstruction. 3-D MIPS and Volume-rendered imag es acquired at the workstation and saved to PACS. Images are reviewed in soft tissue, bone, lung w indows. Axial dynamic scanning technique with dynamic contrast enhancement through the intra-cranial carotid and vertebral arteries. Multiplanar reconstruction. 3-D MIPS and Volume-rendered images acquired at the workstation and saved to PACS. Images are reviewed in soft tissue, bone, lung windows. All CT scanners at this facility use dose modulation, iterative reconstruction, and/or weight based d osing when appropriate to reduce radiation dose to as low as reasonably achievable (ALARA). [facility]: Dose Right [facility]: CareDose [facility]: Dose Right [facility]: Teradose 4D [facility]: Wildfang CONTRAST TYPE AND DOSE: contrast/concentration: Isovue 370.00 mg/ml; Total Contrast Delivered: 70.0 ml; Total Saline Delivered: 75.0 ml RENAL FUNCTION: Creatinine 1.2 LIMITATIONS: None. FINDINGS: Just beyond the left carotid bifurcation, the proximal left ICA appears occluded with clot . This is best shown on axial images 59-68. Left ICA is occluded throughout the high cervical, and skullbase regions. There is flow in the left carotid terminus by the left anterior clinoid intracran ially, related to patent anterior communicating and posterior communicating arteries. This report wa s called to Dr. Martinez, 1710 hours 11/16/2017. Visualized aortic arch is unremarkable. Origin of the brachiocephalic artery, left common carotid, a nd left subclavian arteries are patent. Incidental finding of a direct left vertebral artery origin off the aorta, an anatomic variant. The right subclavian artery is patent. Right vertebral artery is patent in the neck. The right common carotid artery, carotid bifurcation and cervical internal carotid artery unremarkabl e. Right external carotid artery unremarkable. The left common carotid artery and external carotid artery in the neck are unremarkable. Left vertebral artery is patent throughout the neck. The [place] of [place] demonstrates contrast enhancement of the left middle cerebral artery and anterio r cerebral artery through patent collaterals. Right intracranial internal carotid artery, anterior a nd middle cerebral arteries are patent. [place] of [place] demonstrates a patent left posterior communicating artery. Intracranial vertebral a rteries are diffusely small as is the basilar artery. Posterior cerebral arteries arise off the righ t carotid system on the right side, and basilar artery on the left. Soft tissue windows demonstrate multiple right-sided chronic appearing basal ganglia and thalamus inf arcts with chronic appearing bifrontal and biparietal small vessel ischemic change. Knee acute left deep periventricular white matter infarct seen on MRI 11/15/2017 is unchanged. Incidental finding of a 2.2 cm mass in the left lobe thyroid. 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 Intracranial [place] collaterals as above. No CT angio evidence of right carotid bifurcation disease. COMMENT: Pertinent findings on the imaging study reported as a CRITICAL RESULT to WANDA Garcia MD at17:18 on 11/16/2017. Category of Critical Result: Occlusion left high cervical internal carotid artery with clot Quality ID #195: Measurements of distal internal carotid diameter were used as the denominator for st enosis measurement. TECHNICAL DOCUMENTATION: JOB ID: [id number] Quality ID # 436: Final reports with documentation of one or more dose reduction techniques (e.g., Au tomated exposure control, adjustment of the mA and/or kV according to patient size, use of iterative reconstruction technique) 2010 [employer]- All Rights Reserved Reading location - IP/workstation name: [email or web address]
[2017-11-16] MEDS: CEFTRIAXONE 2 GM/D5W RTU 2 GM/50 ML RTUPB IV SCH (18:33)
--- NOTE | 2017-11-16 20:22 | PDOC PROGRESS REPORT ---
Subjective Progress Note for:: 11/16/17 Subjective:: She was seen by the bedside, she is virtually unresponsive, the carotid Doppler done today was abnormal because of the abnormal carotid Doppler CTA neck and head was done it showed just beyond the left carotid bifurcation the proximal left internal carotid artery appears occluded with clot , the left ICA is occluded throughout the cervical skull base regions. There is flow in the left carotid terminus by the left anterior clinoid intracranially. 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 Basically she has a history of right-sided cerebral infarct now she has a new left-sided cerebral infarct this portends a poor prognosis. 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 Patient is presently a full code, she does not respond to verbal commands she did respond to noxious stimulus. This is most likely an embolic stroke originating from the left internal carotid artery. She is presently n.p.o. anticoagulation may be beneficial for this patient she we also be made DNR status, the risk of is very high in this patientI spoke to marcella Porter patient's brother is agreeable to a DNR status he said he will be traveling from [place] tomorrow to see his sister that is the patient Reason For Visit: LEFT CEREBRAL INFARCTION Physical Exam Vital Signs: Temp Pulse Resp BP Pulse Ox 98.9 F 64 18 192/102 H 98 11/16/17 17:32 11/16/17 19:00 11/16/17 17:32 11/16/17 17:32 11/16/17 17:32 Intake & Output 11/15/17 11/16/17 11/17/17 06:59 06:59 06:59 Intake Total 757 2460 1370 Output Total 975 Balance 757 1485 1370 Weight 67.7 kg 71.5 kg Neurological exam: PRESENT: altered - unresponsive,flaccid paralysis of both sides of the body Results Laboratory Results: 11/16/17 04:08 11/16/17 04:08 11/16/17 11/16/17 11/16/17 04:08 04:08 09:05 WBC 16.1 H RBC 5.79 H Hgb 14.7 Hct 45.6 MCV 79 L MCH 25.3 L MCHC 32.2 RDW 14.9 H Plt Count 278 Seg Neutrophils % Not Reportable Lymphocytes % Not Reportable Monocytes % Not Reportable Eosinophils % Not Reportable Basophils % Not Reportable Absolute Neutrophils Not Reportable Absolute Lymphocytes Not Reportable Absolute Monocytes Not Reportable Absolute Eosinophils Not Reportable Absolute Basophils Not Reportable Carbonic Acid 0.67 L HCO3/H2CO3 Ratio 14:1 ABG pH 7.26 L ABG pCO2 22.4 L ABG pO2 102.2 H ABG HCO3 9.8 L ABG O2 Saturation 97.0 ABG Base Excess -15.1 FiO2 ROOM AIR Sodium 155.3 H Potassium 3.9 Chloride 118 H Carbon Dioxide 8 L* Anion Gap 29 H BUN 27 H Creatinine 1.15 Est GFR ( Amer) 57 L Est GFR (Non-Af Amer) 48 L Glucose 230 H Lactic Acid Calcium 9.8 Magnesium 2.0 Total Bilirubin 0.6 AST 33 ALT 32 Alkaline Phosphatase 102 Total Protein 7.0 Albumin 4.1 11/16/17 11/16/17 14:33 18:33 WBC RBC Hgb Hct MCV MCH MCHC RDW Plt Count Seg Neutrophils % Lymphocytes % Monocytes % Eosinophils % Basophils % Absolute Neutrophils Absolute Lymphocytes Absolute Monocytes Absolute Eosinophils Absolute Basophils Carbonic Acid HCO3/H2CO3 Ratio ABG pH ABG pCO2 ABG pO2 ABG HCO3 ABG O2 Saturation ABG Base Excess FiO2 Sodium Potassium Chloride Carbon Dioxide Anion Gap BUN Creatinine Est GFR ( Amer) Est GFR (Non-Af Amer) Glucose Lactic Acid 2.2 H 1.7 Calcium Magnesium Total Bilirubin AST ALT Alkaline Phosphatase Total Protein Albumin 11/14/17 11/14/17 11/14/17 19:50 19:50 19:50 Creatine Kinase 872 H CK-MB (CK-2) Troponin I 0.069 NT-Pro-B Natriuret Pep 5630 H 11/14/17 11/15/17 11/15/17 19:50 02:23 02:23 Creatine Kinase 809 H CK-MB (CK-2) 10.20 H 9.38 H Troponin I NT-Pro-B Natriuret Pep 11/15/17 11/15/17 07:50 07:50 Creatine Kinase 717 H CK-MB (CK-2) 7.67 H Troponin I NT-Pro-B Natriuret Pep Impressions: Head CT 04/14/18 14:16 IMPRESSION: CHRONIC CHANGES OF ATROPHY AND MICROVASCULAR ISCHEMIA. NO ACUTE PROCESS. THESE CHANGES ARE MILDLY PROGRESSED WHEN COMPARED 10/19/2014 EVIDENCE OF ACUTE STROKE: NO. Chest X-Ray 11/14/17 20:08 IMPRESSION: NO ACUTE RADIOGRAPHIC FINDING IN THE CHEST. Head MRI 11/15/17 00:00 IMPRESSION: MULTIPLE SMALL FOCI OF RESTRICTED DIFFUSION INVOLVING THE LEFT CEREBRAL HEMISPHERE IN A WATERSHED DISTRIBUTION DETAILED ABOVE. NO LARGE TERRITORY INFARCTION, HEMORRHAGE, OR MASS LESION. EVIDENCE OF ACUTE STROKE: YES. LEFT WATERSHED DISTRIBUTION. Carotid Doppler Study 11/16/17 00:00 IMPRESSION: No flow significant stenosis at the right carotid bifurcation. Patient has recent watershed infarct in the left hemisphere, and very slow flow in the left common carotid artery and internal carotid artery. Findings are worrisome for high-grade stenosis or occlusion high in the left internal carotid artery at the skullbase. Consider CT angio of the neck and [place] for followup Antegrade pulsatile vertebral artery flow bilaterally Head CTA 11/16/17 00:00 IMPRESSION: Occluded left high cervical ICA with clot. Intracranial [place] collaterals as above. No CT angio evidence of right carotid bifurcation disease. Neck CTA 11/16/17 00:00 IMPRESSION: Occluded left high cervical ICA with clot. Intracranial [place] collaterals as above. No CT angio evidence of right carotid bifurcation disease. Assessment & Plan - Diagnosis (1) Cerebral infarction, left hemisphere Is this a current diagnosis for this admission?: Yes (2) Rhabdomyolysis Qualifiers: Rhabdomyolysis type: non-traumatic Qualified Code(s): M62.82 - Rhabdomyolysis Is this a current diagnosis for this admission?: Yes (3) Hypertension Qualifiers: Hypertension type: essential hypertension Qualified Code(s): I10 - Essential (primary) hypertension Is this a current diagnosis for this admission?: Yes (4) Uncontrolled diabetes mellitus Qualifiers: Diabetes mellitus type: type 2 Diabetes mellitus chcf insulin use: without intermodal truck driver use Diabetes mellitus complication status: with circulatory complication Diabetes mellitus complication detail: with other circulatory complications Qualified Code(s): E11.59 - Type 2 diabetes mellitus with other circulatory complications; E11.65 - Type 2 diabetes mellitus with hyperglycemia ; E11.65 - Type 2 diabetes mellitus with hyperglycemia; E11.65 - Type 2 diabetes mellitus with hyperglycemia; E11.65 - Type 2 diabetes mellitus with hyperglycemia Is this a current diagnosis for this admission?: Yes (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 Qualified Code(s): I65.22 - Occlusion and stenosis of left carotid artery Is this a current diagnosis for this admission?: Yes (6) Internal carotid artery occlusion Qualifiers: Laterality: left Qualified Code(s): I65.22 - Occlusion and stenosis of left carotid artery Is this a current diagnosis for this admission?: Yes
[2017-11-17 05:18] LABS: HEMATOCRIT 43.7 % (36.0-47.0); MEAN CORPUSCULAR HEMOGLOBIN 25.2 pg (27.0-33.4); MEAN CORPUSCULAR HGB CONC 32.1 g/dL (32.0-36.0); MEAN CORPUSCULAR VOLUME 79 fl (80-97); PLATELET COUNT 243 10^3/uL (150-450); RED BLOOD COUNT 5.55 10^6/uL (3.72-5.28); RED CELL DISTRIBUTION WIDTH 15.4 % (11.5-14.0); WHITE BLOOD COUNT 13.8 10^3/uL (4.0-10.5)
[2017-11-17 05:43] LABS: ALANINE AMINOTRANSFERASE 33 U/L (9-52); ALBUMIN 3.4 g/dL (3.5-5.0); ALKALINE PHOSPHATASE 81 U/L (38-126); ASPARTATE AMINO TRANSFERASE 22 U/L (14-36); BILIRUBIN,DIRECT 0.5 mg/dL (0.0-0.4); BILIRUBIN,TOTAL 0.5 mg/dL (0.2-1.3); BLOOD UREA NITROGEN 27 mg/dL (7-20); CALCIUM 9.4 mg/dL (8.4-10.2); GLUCOSE 296 mg/dL (75-110); TOTAL PROTEIN 6.2 g/dL (6.3-8.2)
[2017-11-17 05:48] LABS: CHLORIDE 123 mmol/L (98-107); SODIUM 158.6 mmol/L (137-145)
[2017-11-17 05:59] LABS: POTASSIUM 3.6 mmol/L (3.6-5.0)
[2017-11-17 06:03] LABS: CARBON DIOXIDE 9 mmol/L (22-30)
[2017-11-17 06:13] LABS: ABSOLUTE LYMPHOCYTES# (MANUAL) 0.6 10^3/uL (0.5-4.7); ABSOLUTE MONOCYTES # (MANUAL) 0.4 10^3/uL (0.1-1.4); ABSOLUTE NEUTROPHILS# (MANUAL) 12.8 10^3/uL (1.7-8.2); BASOPHILS % (MANUAL) 0 % (0-2); EOSINOPHILS % (MANUAL) 0 % (0-6); LYMPHOCYTES % (MANUAL) 4 % (13-45); MONOCYTES % (MANUAL) 3 % (3-13); SEGMENTED NEUTROPHILS % (MAN) 93 % (42-78); TOTAL CELLS COUNTED 100
[2017-11-17 06:16] LABS: ANISOCYTOSIS SLIGHT; BURR CELLS 1+; HELMET CELLS SLIGHT; OVALOCYTES SLIGHT; PLATELET COMMENT ADEQUATE; PLATELET LARGE PRESENT; POIKILOCYTOSIS 1+; SCHISTOCYTES SLIGHT; TEAR DROP CELLS SLIGHT; TOXIC GRANULATION SLIGHT
[2017-11-17 06:18] LABS: ANION GAP 27 (5-19)
[2017-11-17] MEDS: ENOXAPARIN SODIUM INJ 40 MG/0.4 ML DISP.SYRIN SUBCUT SCH (09:09)
[2017-11-17] MEDS: ASPIRIN 300 MG SUPP, RECTAL PR SCH (09:12)
[2017-11-17] MEDS: LABETALOL HCL INJ 20 MG/4 ML DISP.SYRIN IV PRN ×3 (09:12→20:14)
[2017-11-17] MEDS: NORMAL SALINE 1000 ML 1,000 ML IV PRN (09:18)
--- NOTE | 2017-11-17 09:22 | EKG REPORT ---
SEVERITY:- ABNORMAL ECG - SINUS RHYTHM PROBABLE LEFT ATRIAL ABNORMALITY LVH WITH SECONDARY REPOLARIZATION ABNORMALITY BORDERLINE PROLONGED QT INTERVAL : Confirmed by: Zeke Lopez 17-Nov-2017 09:21:33
--- NOTE | 2017-11-17 10:10 | XCELERA REPORT ---
[address] [address] Transthoracic Echocardiogram Report Name: DOMO BUCHANAN Age: 62 yrs Gender: Female : 1955 Patient Status: Inpatient Patient Location: [address] [place] [address] Study Date: 11/16/2017 01:49 PM Height: 67 in Weight: 149 lb BSA: 1.8 m2 Procedure: A complete two-dimensional transthoracic echocardiogram was performed (2D, M-mode, spectral and color flow Doppler). The study was technically adequate with some images being suboptimal in quality. Reason For Study: cva Ordering Physician: WANDA THOMAS Performed By: Lizzette Osman Interpretation Summary The left ventricular ejection fraction is normal. There is moderate concentric left ventricular hypertrophy. Doppler measurements suggest pseudonormalized left ventricular relaxation, which is associated with grade II/IV or mild to moderate diastolic dysfunction The left ventricle is grossly normal size. Wall motion cannot be accurately commented on, but no definite regional wall motion abnormalities noted. The right ventricular systolic function is normal. The right atrium is normal in size The left atrial size is normal. There is no mitral regurgitation noted. There is no mitral valve stenosis. No aortic regurgitation is present. There is no aortic valve stenosis There is a trace or physiologic amount of tricuspid regurgitation Tricuspid regurgitation jet envelope not well defined to measure RV systolic pressure accurately. The pulmonic valve is not well visualized. The aortic root is not well visualized. The inferior vena cava was not well visualized There is no pericardial effusion. MMode/2D Measurements & Calculations RVDd: 1.7 cm LVIDd: 3.6 cm FS: 34.2 % Ao root diam: 2.6 cm IVSd: 1.4 cm LVIDs: 2.4 cm EDV(Teich): 55.0 ml LVPWd: 1.1 cm ESV(Teich): 19.7 ml Ao root area: 5.1 cm2 EF(Teich): 64.1 % LA dimension: 2.9 cm Doppler Measurements & Calculations MV E max monae: MV P1/2t max monae: Ao V2 max: LV V1 max P.2 cm/sec 64.2 cm/sec 137.3 cm/sec 5.7 mmHg MV A max monae: MV P1/2t: 92.5 msec Ao max PG: LV V1 max: 108.1 cm/sec 7.5 mmHg 119.0 cm/sec MV E/A: 0.57 MVA(P1/2t): 2.4 cm2 MV dec slope: 203.2 cm/sec2 MV dec time: 0.31 sec PA V2 max: PI end-d monae: TR max monae: 96.3 cm/sec 99.1 cm/sec 195.5 cm/sec PA max PG: TR max P.7 mmHg 15.3 mmHg Left Ventricle The left ventricle is grossly normal size. There is moderate concentric left ventricular hypertrophy. The left ventricular ejection fraction is normal. Doppler measurements suggest pseudonormalized left ventricular relaxation, which is associated with grade II/IV or mild to moderate diastolic dysfunction. Wall motion cannot be accurately commented on, but no definite regional wall motion abnormalities noted. Right Ventricle The right ventricle is grossly normal size. There is normal right ventricular wall thickness. The right ventricular systolic function is normal. Atria The right atrium is normal in size. The left atrial size is normal. Interarterial septum not well visualized and not well dopplered. Cannot comment on ASD/PFO presence. Mitral Valve The mitral valve is grossly normal. There is no mitral valve stenosis. There is no mitral regurgitation noted. Aortic Valve The aortic valve is grossly normal. There is no aortic valve stenosis. No aortic regurgitation is present. Tricuspid Valve The tricuspid valve is not well visualized, but is grossly normal. There is no tricuspid stenosis. There is a trace or physiologic amount of tricuspid regurgitation. Tricuspid regurgitation jet envelope not well defined to measure RV systolic pressure accurately. Pulmonic Valve The pulmonic valve is not well visualized. Great Vessels The aortic root is not well visualized. The inferior vena cava was not well visualized. Effusions There is no pericardial effusion. Incidental Findings No definite cardiac source of CVA/TIA noted on this particular trans- thoracic study. Consider ROSSANA if clinically indicated. May consider mobile cardiac telemetry monitoring (MCT) for ruling out transient AFIB. : WANDA THOMAS > Zeke Lopez
[2017-11-17] MEDS ORDERED: DEXTROSE 40% GEL 15 GM TUBE X 2 PO PRN (14:06)
[2017-11-17] MEDS ORDERED: GLUCAGON,HUMAN RECOMB 1 MG INJ IM PRN (14:06)
[2017-11-17] MEDS ORDERED: DEXTROSE 40% GEL 15 GM TUBE PO PRN (14:06)
[2017-11-17] MEDS ORDERED: DEXTROSE 50%-WATER SYRINGE 25 GM/50 ML DOSE IV PRN (14:06)
[2017-11-17] MEDS ORDERED: DEXTROSE 50%-WATER SYRINGE 12.5 GM/25 ML DOSE IV PRN (14:06)
[2017-11-17] MEDS: DEXTROSE 5%-WATER 1000 ML 1,000 ML IV PRN (14:57)
[2017-11-17] MEDS: INSULIN, REGULAR 100 UNIT/100 ML NORMAL SALINE IV PRN ×2 (14:59)
[2017-11-17 15:27] LABS: BLOOD UREA NITROGEN 30 mg/dL (7-20); CALCIUM 9.5 mg/dL (8.4-10.2); CHLORIDE 123 mmol/L (98-107); GLUCOSE 338 mg/dL (75-110); POTASSIUM 3.6 mmol/L (3.6-5.0)
[2017-11-17 15:33] LABS: CARBON DIOXIDE 11 mmol/L (22-30); SODIUM 158.5 mmol/L (137-145)
[2017-11-17 15:34] LABS: ANION GAP 25 (5-19)
[2017-11-17] MEDS: CEFTRIAXONE 2 GM/D5W RTU 2 GM/50 ML RTUPB IV SCH (17:01)
[2017-11-17 17:37] LABS: ALPHA-1-GLOBULIN URINE 2.4 % (.); GAMMA GLOBULIN URINE 17.2 % (.); M-SPIKE % UR Not Observed % (Not Observed); PROTEIN TOTAL URINE 50.1 mg/dL (Not Estab.)
[2017-11-17 18:00] LABS: BLOOD UREA NITROGEN 31 mg/dL (7-20); CALCIUM 9.2 mg/dL (8.4-10.2); GLUCOSE 316 mg/dL (75-110); POTASSIUM 3.1 mmol/L (3.6-5.0)
[2017-11-17 18:06] LABS: CARBON DIOXIDE 11 mmol/L (22-30); CHLORIDE 126 mmol/L (98-107); SODIUM 159.4 mmol/L (137-145)
[2017-11-17 18:11] LABS: ANION GAP 22 (5-19)
--- NOTE | 2017-11-17 21:18 | PDOC PROGRESS REPORT ---
Subjective Progress Note for:: 11/17/17 Subjective:: She is virtually unresponsive, she was admitted for the management of extensive stroke involving the left cerebral hemisphere, there is associated hypernatremia on uncontrolled diabetes, presently on normal saline, this to be discontinued and changed to 5% dextrose because she is a diabetic she required insulin drip. She does not respond to any stimulus not even sternal pressure this portends a very poor prognosis presently DNR, son is deaf, brothers on his way from [place] is driving his automobile will arrive tomorrow in [facility]. Reason For Visit: LEFT CEREBRAL INFARCTION Physical Exam Vital Signs: Temp Pulse Resp BP Pulse Ox 98.5 F 64 20 172/74 H 100 11/17/17 19:36 11/17/17 20:35 11/17/17 19:36 11/17/17 19:36 11/17/17 19:36 Intake & Output 11/16/17 11/17/17 11/18/17 06:59 06:59 06:59 Intake Total 2460 2485 1060 Output Total 975 650 650 Balance 1485 1835 410 Weight 71.5 kg 70 kg General appearance: PRESENT: other - Unresponsive Respiratory exam: PRESENT: clear to auscultation barrie Cardiovascular exam: PRESENT: +S1, +S2 Neurological exam: PRESENT: altered Results Laboratory Results: 11/17/17 04:45 11/17/17 17:30 11/17/17 11/17/17 11/17/17 04:45 04:45 14:28 WBC 13.8 H RBC 5.55 H Hgb 14.0 Hct 43.7 MCV 79 L MCH 25.2 L MCHC 32.1 RDW 15.4 H Plt Count 243 Seg Neutrophils % Not Reportable Lymphocytes % Not Reportable Monocytes % Not Reportable Eosinophils % Not Reportable Basophils % Not Reportable Absolute Neutrophils Not Reportable Absolute Lymphocytes Not Reportable Absolute Monocytes Not Reportable Absolute Eosinophils Not Reportable Absolute Basophils Not Reportable Sodium 158.6 H 158.5 H Potassium 3.6 3.6 Chloride 123 H 123 H Carbon Dioxide 9 L* 11 L Anion Gap 27 H 25 H BUN 27 H 30 H Creatinine 1.24 1.37 H Est GFR ( Amer) 53 L 47 L Est GFR (Non-Af Amer) 44 L 39 L Glucose 296 H 338 H Calcium 9.4 9.5 Magnesium 2.3 Total Bilirubin 0.5 AST 22 ALT 33 Alkaline Phosphatase 81 Total Protein 6.2 L Albumin 3.4 L 11/17/17 17:30 WBC RBC Hgb Hct MCV MCH MCHC RDW Plt Count Seg Neutrophils % Lymphocytes % Monocytes % Eosinophils % Basophils % Absolute Neutrophils Absolute Lymphocytes Absolute Monocytes Absolute Eosinophils Absolute Basophils Sodium 159.4 H Potassium 3.1 L Chloride 126 H Carbon Dioxide 11 L Anion Gap 22 H BUN 31 H Creatinine 1.27 H Est GFR ( Amer) 51 L Est GFR (Non-Af Amer) 42 L Glucose 316 H Calcium 9.2 Magnesium Total Bilirubin AST ALT Alkaline Phosphatase Total Protein Albumin 11/14/17 11/14/17 11/14/17 19:50 19:50 19:50 Creatine Kinase 872 H CK-MB (CK-2) Troponin I 0.069 NT-Pro-B Natriuret Pep 5630 H 11/14/17 11/15/17 11/15/17 19:50 02:23 02:23 Creatine Kinase 809 H CK-MB (CK-2) 10.20 H 9.38 H Troponin I NT-Pro-B Natriuret Pep 11/15/17 11/15/17 07:50 07:50 Creatine Kinase 717 H CK-MB (CK-2) 7.67 H Troponin I NT-Pro-B Natriuret Pep Impressions: Head CT 11/14/17 14:16 IMPRESSION: CHRONIC CHANGES OF ATROPHY AND MICROVASCULAR ISCHEMIA. NO ACUTE PROCESS. THESE CHANGES ARE MILDLY PROGRESSED WHEN COMPARED 10/19/2014 EVIDENCE OF ACUTE STROKE: NO. Chest X-Ray 11/14/17 20:08 IMPRESSION: NO ACUTE RADIOGRAPHIC FINDING IN THE CHEST. Head MRI 11/15/17 00:00 IMPRESSION: MULTIPLE SMALL FOCI OF RESTRICTED DIFFUSION INVOLVING THE LEFT CEREBRAL HEMISPHERE IN A WATERSHED DISTRIBUTION DETAILED ABOVE. NO LARGE TERRITORY INFARCTION, HEMORRHAGE, OR MASS LESION. EVIDENCE OF ACUTE STROKE: YES. LEFT WATERSHED DISTRIBUTION. Carotid Doppler Study 11/16/17 00:00 IMPRESSION: No flow significant stenosis at the right carotid bifurcation. Patient has recent watershed infarct in the left hemisphere, and very slow flow in the left common carotid artery and internal carotid artery. Findings are worrisome for high-grade stenosis or occlusion high in the left internal carotid artery at the skullbase. Consider CT angio of the neck and [place] for followup Antegrade pulsatile vertebral artery flow bilaterally Head CTA 11/16/17 00:00 IMPRESSION: Occluded left high cervical ICA with clot. Intracranial [place] collaterals as above. No CT angio evidence of right carotid bifurcation disease. Neck CTA 11/16/17 00:00 IMPRESSION: Occluded left high cervical ICA with clot. Intracranial [place] collaterals as above. No CT angio evidence of right carotid bifurcation disease. Assessment & Plan - Diagnosis (1) Cerebral infarction, left hemisphere Is this a current diagnosis for this admission?: Yes (2) Rhabdomyolysis Qualifiers: Rhabdomyolysis type: non-traumatic Qualified Code(s): M62.82 - Rhabdomyolysis Is this a current diagnosis for this admission?: Yes (3) Hypertension Qualifiers: Hypertension type: essential hypertension Qualified Code(s): I10 - Essential (primary) hypertension Is this a current diagnosis for this admission?: Yes (4) Uncontrolled diabetes mellitus Qualifiers: Diabetes mellitus type: type 2 Diabetes mellitus [employer] insulin use: without senior living use Diabetes mellitus complication status: with circulatory complication Diabetes mellitus complication detail: with other circulatory complications Qualified Code(s): E11.59 - Type 2 diabetes mellitus with other circulatory complications; E11.65 - Type 2 diabetes mellitus with hyperglycemia ; E11.65 - Type 2 diabetes mellitus with hyperglycemia; E11.65 - Type 2 diabetes mellitus with hyperglycemia; E11.65 - Type 2 diabetes mellitus with hyperglycemia Is this a current diagnosis for this admission?: Yes Plan: Start insulin drip (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 Qualified Code(s): I65.22 - Occlusion and stenosis of left carotid artery Is this a current diagnosis for this admission?: Yes (6) Internal carotid artery occlusion Qualifiers: Laterality: left Qualified Code(s): I65.22 - Occlusion and stenosis of left carotid artery Is this a current diagnosis for this admission?: Yes (7) Unresponsive Is this a current diagnosis for this admission?: Yes Plan: The differential diagnosis will include extension of his CVA, hypernatremia, not sure if the hypernatremia is the predominant factor for the stroke, I do not see any value in repeating another MRI of the brain, the fluid be changed to 5% dextrose to treat the hypernatremia, on start insulin drip to treat the diabetes
[2017-11-17] MEDS: POTASSI CL 20 MEQ/50 ML RIDER 20 MEQ/50 ML RTUPB IV SCH ×2 (21:39→23:09)
[2017-11-17 21:51] LABS: ANION GAP 16 (5-19); BLOOD UREA NITROGEN 32 mg/dL (7-20); CALCIUM 9.4 mg/dL (8.4-10.2); CARBON DIOXIDE 17 mmol/L (22-30); CHLORIDE 126 mmol/L (98-107); GLUCOSE 192 mg/dL (75-110); SODIUM 158.7 mmol/L (137-145)
[2017-11-17 22:03] LABS: POTASSIUM 2.9 mmol/L (3.6-5.0)
[2017-11-17] MEDS ORDERED: POTASSIUM CHLORIDE 20 MEQ/50 ML RTU IV ONE (22:30)
[2017-11-17] MEDS ORDERED: POTASSI CL 20 MEQ/50 ML RIDER 20 MEQ/50 ML RTUPB IV ONE (23:21)
[2017-11-18] MEDS ORDERED: POTASSIUM CHLORIDE 20 MEQ/50 ML RTU IV ONE (02:00)
[2017-11-18 02:11] LABS: ANION GAP 13 (5-19); BLOOD UREA NITROGEN 32 mg/dL (7-20); CALCIUM 9.5 mg/dL (8.4-10.2); CARBON DIOXIDE 20 mmol/L (22-30); CHLORIDE 128 mmol/L (98-107); GLUCOSE 119 mg/dL (75-110); SODIUM 161.4 mmol/L (137-145)
[2017-11-18 02:16] LABS: POTASSIUM 2.8 mmol/L (3.6-5.0)
[2017-11-18] MEDS: DEXTROSE 5%-WATER 1000 ML 1,000 ML IV PRN ×2 (03:10→15:32)
[2017-11-18 08:11] LABS: ANION GAP 12 (5-19); BLOOD UREA NITROGEN 30 mg/dL (7-20); CARBON DIOXIDE 19 mmol/L (22-30); CHLORIDE 125 mmol/L (98-107); GLUCOSE 131 mg/dL (75-110); POTASSIUM 3.6 mmol/L (3.6-5.0); SODIUM 156.4 mmol/L (137-145)
--- NOTE | 2017-11-18 09:43 | EKG REPORT ---
SEVERITY:- ABNORMAL ECG - SINUS RHYTHM LVH WITH SECONDARY REPOLARIZATION ABNORMALITY PROBABLE INFERIOR INFARCT, AGE INDETERMINATE CONSIDER ANTERIOR INFARCT KARELY : Confirmed by: Zeke Lopez 18-Nov-2017 09:42:40
[2017-11-18] MEDS: ENOXAPARIN SODIUM INJ 40 MG/0.4 ML DISP.SYRIN SUBCUT SCH (10:16)
[2017-11-18] MEDS: INSULIN, REGULAR 100 UNIT/100 ML NORMAL SALINE IV PRN ×2 (11:12)
[2017-11-18 11:50] LABS: ANION GAP 9 (5-19); BLOOD UREA NITROGEN 30 mg/dL (7-20); CALCIUM 9.8 mg/dL (8.4-10.2); CARBON DIOXIDE 22 mmol/L (22-30); CHLORIDE 125 mmol/L (98-107); GLUCOSE 80 mg/dL (75-110); SODIUM 156.2 mmol/L (137-145)
[2017-11-18] MEDS: ASPIRIN 300 MG SUPP, RECTAL PR SCH (12:37)
[2017-11-18] MEDS: POTASSIUM CHLORIDE 20 MEQ/50 ML RTU IV SCH ×3 (14:46→20:48)
[2017-11-18 15:59] LABS: ABSOLUTE BASOPHILS # (AUTO) 0.1 10^3/uL (0.0-0.2); ABSOLUTE LYMPHOCYTES (AUTO) 1.4 10^3/uL (0.5-4.7); ABSOLUTE MONOCYTES (AUTO) 0.9 10^3/uL (0.1-1.4); ABSOLUTE NEUT (AUTO) 12.9 10^3/uL (1.7-8.2); BASOPHILS % (AUTO) 0.8 % (0-2); HEMATOCRIT 45.1 % (36.0-47.0); HEMOGLOBIN 14.8 g/dL (12.0-15.5); LYMPHOCYTES % (AUTO) 8.9 % (13-45); MEAN CORPUSCULAR HEMOGLOBIN 25.2 pg (27.0-33.4); MEAN CORPUSCULAR HGB CONC 32.9 g/dL (32.0-36.0); MEAN CORPUSCULAR VOLUME 77 fl (80-97); MONOCYTES % (AUTO) 6.2 % (3-13); PLATELET COUNT 208 10^3/uL (150-450); RED BLOOD COUNT 5.88 10^6/uL (3.72-5.28); RED CELL DISTRIBUTION WIDTH 15.2 % (11.5-14.0); SEGMENTED NEUTROPHILS % (AUTO) 84.1 % (42-78); TOTAL CELLS COUNTED % (AUTO) 100 %; WHITE BLOOD COUNT 15.4 10^3/uL (4.0-10.5)
[2017-11-18 16:25] LABS: ALANINE AMINOTRANSFERASE 33 U/L (9-52); ALBUMIN 2.9 g/dL (3.5-5.0); ALKALINE PHOSPHATASE 84 U/L (38-126); ANION GAP 10 (5-19); ASPARTATE AMINO TRANSFERASE 40 U/L (14-36); BILIRUBIN,DIRECT 0.4 mg/dL (0.0-0.4); BILIRUBIN,TOTAL 0.6 mg/dL (0.2-1.3); BLOOD UREA NITROGEN 28 mg/dL (7-20); CALCIUM 9.5 mg/dL (8.4-10.2); CARBON DIOXIDE 20 mmol/L (22-30); CHLORIDE 124 mmol/L (98-107); GLUCOSE 166 mg/dL (75-110); POTASSIUM 3.2 mmol/L (3.6-5.0); SODIUM 153.7 mmol/L (137-145); TOTAL PROTEIN 5.4 g/dL (6.3-8.2)
[2017-11-18] MEDS: CEFTRIAXONE 2 GM/D5W RTU 2 GM/50 ML RTUPB IV SCH (17:35)
--- NOTE | 2017-11-18 18:09 | PDOC CONSULTATION ---
Consultation Consult Date: 11/18/17 Attending physician:: CARLOS BAUTISTA Consult reason:: has had CVA, ? need PEG tube History of Present Illness Admission Date/PCP: 11/14/17 19:13 WANDA THOMAS MD History of Present Illness: DOMO BUCHANAN is a 62 year old female sustained recent large CVA almost unresponsive at this point also has hypernatremia and elevated WBC at this point PEG tube requested patient is high risk for now cannot proceed until sodium has been corrected and WBC has normalized overall prognosis is very poor a PEG tube placement is very high risk, she could have respiratory depression, it will not improve the overall situation at all Past Medical History Cardiac Medical History: Reports: Hyperlipidema, Hypertension Endocrine Medical History: Reports: Diabetes Mellitus Type 2 Social History Smoking Status: Unknown if Ever Smoked Frequency of Alcohol Use: Occasional Hx Recreational Drug Use: No Hx Prescription Drug Abuse: No Family History Family History: Reviewed & Not Pertinent Parental Family History Reviewed: Yes Children Family History Reviewed: Unknown Sibling(s) Family History Reviewed.: Unknown Medication/Allergy Home Medications: Unobtainable [Unobtainable] 11/15/17 Allergies/Adverse Reactions: No Known Allergies Allergy (Unverified 10/19/14 18:46) Review of Systems Constitutional: ABSENT: night sweats Cardiovascular: ABSENT: orthropnea Respiratory: ABSENT: hemoptysis, sputum Genitourinary: ABSENT: hematuria Integumentary: ABSENT: lesions Neurological: ABSENT: syncope, tremor(s) Endocrine: ABSENT: polydipsia, polyphagia, polyuria Hematologic/Lymphatic: ABSENT: easy bruising, lymphadenopathy Physical Exam Vital Signs: Temp Pulse Resp BP Pulse Ox 98.5 F 81 22 H 194/97 H 95 11/18/17 15:09 11/18/17 15:09 11/18/17 15:09 11/18/17 15:09 11/18/17 15:09 Intake & Output 11/17/17 11/18/17 11/19/17 06:59 06:59 06:59 Intake Total 2485 2164 0 Output Total 650 900 150 Balance 1835 1264 -150 Weight 70 kg 71.3 kg General appearance: PRESENT: other - unresponsive Head exam: PRESENT: atraumatic, normocephalic Eye exam: ABSENT: nystagmus, scleral icterus Mouth exam: ABSENT: tongue midline Throat exam: ABSENT: tonsillar exudate, tonsillogmegaly Neck exam: ABSENT: thyromegaly Respiratory exam: ABSENT: retraction, wheezes Cardiovascular exam: PRESENT: RRR, +S1, +S2 GI/Abdominal exam: ABSENT: rebound, rigid, tenderness Extremities exam: ABSENT: joint swelling Neurological exam: PRESENT: aphasic Skin exam: ABSENT: mottled, urticaria, vesicles Results Laboratory Results: 11/18/17 15:30 11/18/17 15:30 11/17/17 11/17/17 11/18/17 17:30 21:25 01:45 WBC RBC Hgb Hct MCV MCH MCHC RDW Plt Count Seg Neutrophils % Lymphocytes % Monocytes % Eosinophils % Basophils % Absolute Neutrophils Absolute Lymphocytes Absolute Monocytes Absolute Eosinophils Absolute Basophils Sodium 159.4 H 158.7 H 161.4 H Potassium 3.1 L 2.9 L* 2.8 L* Chloride 126 H 126 H 128 H Carbon Dioxide 11 L 17 L 20 L Anion Gap 22 H 16 13 BUN 31 H 32 H 32 H Creatinine 1.27 H 1.24 1.24 Est GFR ( Amer) 51 L 53 L 53 L Est GFR (Non-Af Amer) 42 L 44 L 44 L Glucose 316 H 192 H 119 H Calcium 9.2 9.4 9.5 Total Bilirubin AST ALT Alkaline Phosphatase Total Protein Albumin 11/18/17 11/18/17 11/18/17 07:20 10:54 15:30 WBC 15.4 H RBC 5.88 H Hgb 14.8 Hct 45.1 MCV 77 L MCH 25.2 L MCHC 32.9 RDW 15.2 H Plt Count 208 Seg Neutrophils % 84.1 H Lymphocytes % 8.9 L Monocytes % 6.2 Eosinophils % 0.0 Basophils % 0.8 Absolute Neutrophils 12.9 H Absolute Lymphocytes 1.4 Absolute Monocytes 0.9 Absolute Eosinophils 0.0 Absolute Basophils 0.1 Sodium 156.4 H 156.2 H Potassium 3.6 3.0 L* Chloride 125 H 125 H Carbon Dioxide 19 L 22 Anion Gap 12 9 BUN 30 H 30 H Creatinine 1.18 1.21 Est GFR ( Amer) 56 L 54 L Est GFR (Non-Af Amer) 46 L 45 L Glucose 131 H 80 Calcium 10.0 9.8 Total Bilirubin AST ALT Alkaline Phosphatase Total Protein Albumin 11/18/17 15:30 WBC RBC Hgb Hct MCV MCH MCHC RDW Plt Count Seg Neutrophils % Lymphocytes % Monocytes % Eosinophils % Basophils % Absolute Neutrophils Absolute Lymphocytes Absolute Monocytes Absolute Eosinophils Absolute Basophils Sodium 153.7 H Potassium 3.2 L Chloride 124 H Carbon Dioxide 20 L Anion Gap 10 BUN 28 H Creatinine 1.07 Est GFR ( Amer) > 60 Est GFR (Non-Af Amer) 52 L Glucose 166 H Calcium 9.5 Total Bilirubin 0.6 AST 40 H ALT 33 Alkaline Phosphatase 84 Total Protein 5.4 L Albumin 2.9 L 11/14/17 11/14/17 11/14/17 19:50 19:50 19:50 Creatine Kinase 872 H CK-MB (CK-2) Troponin I 0.069 NT-Pro-B Natriuret Pep 5630 H 11/14/17 11/15/17 11/15/17 19:50 02:23 02:23 Creatine Kinase 809 H CK-MB (CK-2) 10.20 H 9.38 H Troponin I NT-Pro-B Natriuret Pep 11/15/17 11/15/17 07:50 07:50 Creatine Kinase 717 H CK-MB (CK-2) 7.67 H Troponin I NT-Pro-B Natriuret Pep Impressions: Head CT 11/14/17 14:16 IMPRESSION: CHRONIC CHANGES OF ATROPHY AND MICROVASCULAR ISCHEMIA. NO ACUTE PROCESS. THESE CHANGES ARE MILDLY PROGRESSED WHEN COMPARED 10/19/2014 EVIDENCE OF ACUTE STROKE: NO. Chest X-Ray 11/14/17 20:08 IMPRESSION: NO ACUTE RADIOGRAPHIC FINDING IN THE CHEST. Head MRI 11/15/17 00:00 IMPRESSION: MULTIPLE SMALL FOCI OF RESTRICTED DIFFUSION INVOLVING THE LEFT CEREBRAL HEMISPHERE IN A WATERSHED DISTRIBUTION DETAILED ABOVE. NO LARGE TERRITORY INFARCTION, HEMORRHAGE, OR MASS LESION. EVIDENCE OF ACUTE STROKE: YES. LEFT WATERSHED DISTRIBUTION. Carotid Doppler Study 11/16/17 00:00 IMPRESSION: No flow significant stenosis at the right carotid bifurcation. Patient has recent watershed infarct in the left hemisphere, and very slow flow in the left common carotid artery and internal carotid artery. Findings are worrisome for high-grade stenosis or occlusion high in the left internal carotid artery at the skullbase. Consider CT angio of the neck and [place] for followup Antegrade pulsatile vertebral artery flow bilaterally Head CTA 11/16/17 00:00 IMPRESSION: Occluded left high cervical ICA with clot. Intracranial [place] collaterals as above. No CT angio evidence of right carotid bifurcation disease. Neck CTA 11/16/17 00:00 IMPRESSION: Occluded left high cervical ICA with clot. Intracranial [place] collaterals as above. No CT angio evidence of right carotid bifurcation disease. Assessment & Plan - Diagnosis (1) Feeding difficulty Plan: due to CVA overall prognosis is very poor I do not believe that placement of PEG tube would serve to extend life at this point to even consider placement, would need to have sodium corrected first she is at high risk for procedure she may potentially during the procedure I would not be comfortable placing PEG tube in this patient would consider surgical referral at this point will discuss with family, may consider end of life measures rather than aggressive therapy at this point - Time Time Spent: 50 to 70 Minutes
--- NOTE | 2017-11-18 18:21 | PDOC PROGRESS REPORT ---
Subjective Progress Note for:: 11/18/17 Subjective:: Patient was seen by the bedside, the brothers came from [place] I explained to them patient's condition and the extremely poor prognosis I indicated to them that I did not support that he feeding tube be placed in this patient but a family member was feeding tube place, consultation will be requested from GI. I believe patient would not do well overall ,wish to focus more on palliative care. I will order EEG on this patient Reason For Visit: LEFT CEREBRAL INFARCTION Physical Exam Vital Signs: Temp Pulse Resp BP Pulse Ox 98.5 F 81 22 H 194/97 H 95 11/18/17 15:09 11/18/17 15:09 11/18/17 15:09 11/18/17 15:09 11/18/17 15:09 Intake & Output 11/17/17 11/18/17 11/19/17 06:59 06:59 06:59 Intake Total 2485 2164 1700 Output Total 650 900 150 Balance 1835 1264 1550 Weight 70 kg 71.3 kg General appearance: PRESENT: other - She is virtually unresponsive Eye exam: PRESENT: PERRLA Respiratory exam: PRESENT: clear to auscultation barrie Cardiovascular exam: PRESENT: +S1, +S2 Neurological exam: PRESENT: altered Results Laboratory Results: 11/18/17 15:30 11/18/17 15:30 11/17/17 11/18/17 11/18/17 21:25 01:45 07:20 WBC RBC Hgb Hct MCV MCH MCHC RDW Plt Count Seg Neutrophils % Lymphocytes % Monocytes % Eosinophils % Basophils % Absolute Neutrophils Absolute Lymphocytes Absolute Monocytes Absolute Eosinophils Absolute Basophils Sodium 158.7 H 161.4 H 156.4 H Potassium 2.9 L* 2.8 L* 3.6 Chloride 126 H 128 H 125 H Carbon Dioxide 17 L 20 L 19 L Anion Gap 16 13 12 BUN 32 H 32 H 30 H Creatinine 1.24 1.24 1.18 Est GFR ( Amer) 53 L 53 L 56 L Est GFR (Non-Af Amer) 44 L 44 L 46 L Glucose 192 H 119 H 131 H Calcium 9.4 9.5 10.0 Total Bilirubin AST ALT Alkaline Phosphatase Total Protein Albumin 11/18/17 11/18/17 11/18/17 10:54 15:30 15:30 WBC 15.4 H RBC 5.88 H Hgb 14.8 Hct 45.1 MCV 77 L MCH 25.2 L MCHC 32.9 RDW 15.2 H Plt Count 208 Seg Neutrophils % 84.1 H Lymphocytes % 8.9 L Monocytes % 6.2 Eosinophils % 0.0 Basophils % 0.8 Absolute Neutrophils 12.9 H Absolute Lymphocytes 1.4 Absolute Monocytes 0.9 Absolute Eosinophils 0.0 Absolute Basophils 0.1 Sodium 156.2 H 153.7 H Potassium 3.0 L* 3.2 L Chloride 125 H 124 H Carbon Dioxide 22 20 L Anion Gap 9 10 BUN 30 H 28 H Creatinine 1.21 1.07 Est GFR ( Amer) 54 L > 60 Est GFR (Non-Af Amer) 45 L 52 L Glucose 80 166 H Calcium 9.8 9.5 Total Bilirubin 0.6 AST 40 H ALT 33 Alkaline Phosphatase 84 Total Protein 5.4 L Albumin 2.9 L 11/14/17 11/14/17 11/14/17 19:50 19:50 19:50 Creatine Kinase 872 H CK-MB (CK-2) Troponin I 0.069 NT-Pro-B Natriuret Pep 5630 H 11/14/17 11/15/17 11/15/17 19:50 02:23 02:23 Creatine Kinase 809 H CK-MB (CK-2) 10.20 H 9.38 H Troponin I NT-Pro-B Natriuret Pep 11/15/17 11/15/17 07:50 07:50 Creatine Kinase 717 H CK-MB (CK-2) 7.67 H Troponin I NT-Pro-B Natriuret Pep Impressions: Head CT 11/14/17 14:16 IMPRESSION: CHRONIC CHANGES OF ATROPHY AND MICROVASCULAR ISCHEMIA. NO ACUTE PROCESS. THESE CHANGES ARE MILDLY PROGRESSED WHEN COMPARED 10/19/2014 EVIDENCE OF ACUTE STROKE: NO. Chest X-Ray 11/14/17 20:08 IMPRESSION: NO ACUTE RADIOGRAPHIC FINDING IN THE CHEST. Head MRI 11/15/17 00:00 IMPRESSION: MULTIPLE SMALL FOCI OF RESTRICTED DIFFUSION INVOLVING THE LEFT CEREBRAL HEMISPHERE IN A WATERSHED DISTRIBUTION DETAILED ABOVE. NO LARGE TERRITORY INFARCTION, HEMORRHAGE, OR MASS LESION. EVIDENCE OF ACUTE STROKE: YES. LEFT WATERSHED DISTRIBUTION. Carotid Doppler Study 11/16/17 00:00 IMPRESSION: No flow significant stenosis at the right carotid bifurcation. Patient has recent watershed infarct in the left hemisphere, and very slow flow in the left common carotid artery and internal carotid artery. Findings are worrisome for high-grade stenosis or occlusion high in the left internal carotid artery at the skullbase. Consider CT angio of the neck and [place] for followup Antegrade pulsatile vertebral artery flow bilaterally Head CTA 11/16/17 00:00 IMPRESSION: Occluded left high cervical ICA with clot. Intracranial [place] collaterals as above. No CT angio evidence of right carotid bifurcation disease. Neck CTA 11/16/17 00:00 IMPRESSION: Occluded left high cervical ICA with clot. Intracranial [place] collaterals as above. No CT angio evidence of right carotid bifurcation disease. Assessment & Plan - Diagnosis (1) Cerebral infarction, left hemisphere Is this a current diagnosis for this admission?: Yes Plan: EEG ordered (2) Rhabdomyolysis Qualifiers: Rhabdomyolysis type: non-traumatic Qualified Code(s): M62.82 - Rhabdomyolysis Is this a current diagnosis for this admission?: Yes (3) Hypertension Qualifiers: Hypertension type: essential hypertension Qualified Code(s): I10 - Essential (primary) hypertension Is this a current diagnosis for this admission?: Yes (4) Uncontrolled diabetes mellitus Qualifiers: Diabetes mellitus type: type 2 Diabetes mellitus long chain beamer insulin use: without long chain beamer use Diabetes mellitus complication status: with circulatory complication Diabetes mellitus complication detail: with other circulatory complications Qualified Code(s): E11.59 - Type 2 diabetes mellitus with other circulatory complications; E11.65 - Type 2 diabetes mellitus with hyperglycemia ; E11.65 - Type 2 diabetes mellitus with hyperglycemia; E11.65 - Type 2 diabetes mellitus with hyperglycemia; E11.65 - Type 2 diabetes mellitus with hyperglycemia Is this a current diagnosis for this admission?: Yes (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 Qualified Code(s): I65.22 - Occlusion and stenosis of left carotid artery Is this a current diagnosis for this admission?: Yes (6) Internal carotid artery occlusion Qualifiers: Laterality: left Qualified Code(s): I65.22 - Occlusion and stenosis of left carotid artery Is this a current diagnosis for this admission?: Yes (7) Unresponsive Is this a current diagnosis for this admission?: Yes (8) Hypernatremia Is this a current diagnosis for this admission?: Yes Plan: Continue 5% dextrose (9) Rhabdomyolysis Qualifiers: Rhabdomyolysis type: non-traumatic Qualified Code(s): M62.82 - Rhabdomyolysis Is this a current diagnosis for this admission?: Yes (10) Noncompliance Is this a current diagnosis for this admission?: Yes (11) Hypokalemia Is this a current diagnosis for this admission?: Yes Plan: Correct potassium
[2017-11-18 19:29] LABS: ANION GAP 9 (5-19); BLOOD UREA NITROGEN 28 mg/dL (7-20); CALCIUM 9.3 mg/dL (8.4-10.2); CARBON DIOXIDE 21 mmol/L (22-30); CHLORIDE 123 mmol/L (98-107); GLUCOSE 126 mg/dL (75-110); POTASSIUM 3.4 mmol/L (3.6-5.0); SODIUM 152.9 mmol/L (137-145)
[2017-11-18 23:20] LABS: ANION GAP 9 (5-19); BLOOD UREA NITROGEN 27 mg/dL (7-20); CALCIUM 9.4 mg/dL (8.4-10.2); CARBON DIOXIDE 22 mmol/L (22-30); CHLORIDE 122 mmol/L (98-107); GLUCOSE 105 mg/dL (75-110); POTASSIUM 3.6 mmol/L (3.6-5.0); SODIUM 153.4 mmol/L (137-145)
[2017-11-19] MEDS: LABETALOL HCL INJ 20 MG/4 ML DISP.SYRIN IV PRN ×3 (00:02→19:42)
[2017-11-19 02:32] LABS: ANION GAP 11 (5-19); BLOOD UREA NITROGEN 25 mg/dL (7-20); CALCIUM 9.2 mg/dL (8.4-10.2); CARBON DIOXIDE 21 mmol/L (22-30); CHLORIDE 123 mmol/L (98-107); GLUCOSE 128 mg/dL (75-110); POTASSIUM 3.6 mmol/L (3.6-5.0); SODIUM 154.9 mmol/L (137-145)
[2017-11-19] MEDS: DEXTROSE 5%-WATER 1000 ML 1,000 ML IV PRN ×2 (05:07→23:36)
[2017-11-19 06:49] LABS: ANION GAP 10 (5-19); BLOOD UREA NITROGEN 26 mg/dL (7-20); CARBON DIOXIDE 20 mmol/L (22-30); CHLORIDE 122 mmol/L (98-107); GLUCOSE 176 mg/dL (75-110); POTASSIUM 3.6 mmol/L (3.6-5.0)
[2017-11-19] MEDS: ENOXAPARIN SODIUM INJ 40 MG/0.4 ML DISP.SYRIN SUBCUT SCH (10:06)
[2017-11-19] MEDS: ASPIRIN 300 MG SUPP, RECTAL PR SCH (10:07)
[2017-11-19 11:17] LABS: ANION GAP 11 (5-19); BLOOD UREA NITROGEN 26 mg/dL (7-20); CARBON DIOXIDE 21 mmol/L (22-30); CHLORIDE 120 mmol/L (98-107); GLUCOSE 149 mg/dL (75-110); POTASSIUM 3.5 mmol/L (3.6-5.0); SODIUM 152.2 mmol/L (137-145)
[2017-11-19 15:26] LABS: ANION GAP 8 (5-19); BLOOD UREA NITROGEN 27 mg/dL (7-20); CALCIUM 8.7 mg/dL (8.4-10.2); CARBON DIOXIDE 22 mmol/L (22-30); CHLORIDE 119 mmol/L (98-107); GLUCOSE 190 mg/dL (75-110); POTASSIUM 3.4 mmol/L (3.6-5.0); SODIUM 149.4 mmol/L (137-145)
[2017-11-19 18:16] LABS: ABSOLUTE BASOPHILS # (AUTO) 0.1 10^3/uL (0.0-0.2); ABSOLUTE LYMPHOCYTES (AUTO) 1.4 10^3/uL (0.5-4.7); ABSOLUTE MONOCYTES (AUTO) 0.9 10^3/uL (0.1-1.4); ABSOLUTE NEUT (AUTO) 9.2 10^3/uL (1.7-8.2); BASOPHILS % (AUTO) 0.7 % (0-2); EOSINOPHILS % (AUTO) 0.2 % (0-6); HEMATOCRIT 42.8 % (36.0-47.0); HEMOGLOBIN 14.1 g/dL (12.0-15.5); MEAN CORPUSCULAR HEMOGLOBIN 25.4 pg (27.0-33.4); MEAN CORPUSCULAR VOLUME 77 fl (80-97); MONOCYTES % (AUTO) 7.9 % (3-13); PLATELET COUNT 169 10^3/uL (150-450); RED BLOOD COUNT 5.57 10^6/uL (3.72-5.28); RED CELL DISTRIBUTION WIDTH 15.6 % (11.5-14.0); SEGMENTED NEUTROPHILS % (AUTO) 79.2 % (42-78); TOTAL CELLS COUNTED % (AUTO) 100 %; WHITE BLOOD COUNT 11.7 10^3/uL (4.0-10.5)
[2017-11-19] MEDS: CEFTRIAXONE 2 GM/D5W RTU 2 GM/50 ML RTUPB IV SCH (18:29)
[2017-11-19 18:58] LABS: ANION GAP 8 (5-19); BLOOD UREA NITROGEN 27 mg/dL (7-20); CARBON DIOXIDE 24 mmol/L (22-30); CHLORIDE 119 mmol/L (98-107); GLUCOSE 165 mg/dL (75-110); POTASSIUM 3.4 mmol/L (3.6-5.0); SODIUM 151.2 mmol/L (137-145)
--- NOTE | 2017-11-19 21:53 | PDOC PROGRESS REPORT ---
Subjective Progress Note for:: 11/19/17 Subjective:: Patient condition remains poor, I had a long discussion with patient's family, brothers that came from [place], they want her transferred to [place] I explained to them that they probably responsible for the transportation fee because that is interstate transfer my understanding is that Medicare does not pay for that, discharge planning be consulted to arrange the transfer with family. Family also wants her to be a full code despite very severe CVA with electrolyte derangements, initially she was made DNR after consultation with the brother but they want the DNR rescinded, I explained to them that the patient's best interest should be the standard she already of CVA affecting the right brain with left-sided paralysis she not has CVA involving the left brain with right-sided paralysis. She was seen yesterday by GI for possible PEG tube placement but GI felt she is a very high risk and he declined to proceed with PEG tube Reason For Visit: LEFT CEREBRAL INFARCTION Physical Exam Vital Signs: Temp Pulse Resp BP Pulse Ox 97.6 F 74 20 141/59 H 100 11/19/17 15:19 11/19/17 20:07 11/19/17 15:19 11/19/17 15:19 11/19/17 15:19 Intake & Output 11/18/17 11/19/17 11/20/17 06:59 06:59 06:59 Intake Total 2164 2558 680 Output Total 900 500 150 Balance 1264 2058 530 Weight 71.3 kg 72.9 kg General appearance: PRESENT: no acute distress Eye exam: PRESENT: PERRLA Respiratory exam: PRESENT: clear to auscultation barrie Cardiovascular exam: PRESENT: +S1, +S2 GI/Abdominal exam: PRESENT: soft Neurological exam: PRESENT: alert Results Laboratory Results: 11/19/17 18:00 11/19/17 18:00 11/18/17 11/19/17 11/19/17 21:55 02:02 05:53 WBC RBC Hgb Hct MCV MCH MCHC RDW Plt Count Seg Neutrophils % Lymphocytes % Monocytes % Eosinophils % Basophils % Absolute Neutrophils Absolute Lymphocytes Absolute Monocytes Absolute Eosinophils Absolute Basophils Sodium 153.4 H 154.9 H 152.0 H Potassium 3.6 3.6 3.6 Chloride 122 H 123 H 122 H Carbon Dioxide 22 21 L 20 L Anion Gap 9 11 10 BUN 27 H 25 H 26 H Creatinine 1.06 1.03 1.03 Est GFR ( Amer) > 60 > 60 > 60 Est GFR (Non-Af Amer) 52 L 54 L 54 L Glucose 105 128 H 176 H Calcium 9.4 9.2 9.0 11/19/17 11/19/17 11/19/17 10:02 14:32 18:00 WBC RBC Hgb Hct MCV MCH MCHC RDW Plt Count Seg Neutrophils % Lymphocytes % Monocytes % Eosinophils % Basophils % Absolute Neutrophils Absolute Lymphocytes Absolute Monocytes Absolute Eosinophils Absolute Basophils Sodium 152.2 H 149.4 H 151.2 H Potassium 3.5 L 3.4 L 3.4 L Chloride 120 H 119 H 119 H Carbon Dioxide 21 L 22 24 Anion Gap 11 8 8 BUN 26 H 27 H 27 H Creatinine 1.04 1.00 1.08 Est GFR ( Amer) > 60 > 60 > 60 Est GFR (Non-Af Amer) 53 L 56 L 51 L Glucose 149 H 190 H 165 H Calcium 9.0 8.7 9.0 11/19/17 18:00 WBC 11.7 H RBC 5.57 H Hgb 14.1 Hct 42.8 MCV 77 L MCH 25.4 L MCHC 33.0 RDW 15.6 H Plt Count 169 Seg Neutrophils % 79.2 H Lymphocytes % 12.0 L Monocytes % 7.9 Eosinophils % 0.2 Basophils % 0.7 Absolute Neutrophils 9.2 H Absolute Lymphocytes 1.4 Absolute Monocytes 0.9 Absolute Eosinophils 0.0 Absolute Basophils 0.1 Sodium Potassium Chloride Carbon Dioxide Anion Gap BUN Creatinine Est GFR ( Amer) Est GFR (Non-Af Amer) Glucose Calcium 11/14/17 19:50 Blood Blood Culture - Final NO GROWTH IN 5 DAYS 11/14/17 11/14/17 11/14/17 19:50 19:50 19:50 Creatine Kinase 872 H CK-MB (CK-2) Troponin I 0.069 NT-Pro-B Natriuret Pep 5630 H 11/14/17 11/15/17 11/15/17 19:50 02:23 02:23 Creatine Kinase 809 H CK-MB (CK-2) 10.20 H 9.38 H Troponin I NT-Pro-B Natriuret Pep 11/15/17 11/15/17 07:50 07:50 Creatine Kinase 717 H CK-MB (CK-2) 7.67 H Troponin I NT-Pro-B Natriuret Pep Impressions: Head CT 11/14/17 14:16 IMPRESSION: CHRONIC CHANGES OF ATROPHY AND MICROVASCULAR ISCHEMIA. NO ACUTE PROCESS. THESE CHANGES ARE MILDLY PROGRESSED WHEN COMPARED 10/19/2014 EVIDENCE OF ACUTE STROKE: NO. Chest X-Ray 11/14/17 20:08 IMPRESSION: NO ACUTE RADIOGRAPHIC FINDING IN THE CHEST. Head MRI 11/15/17 00:00 IMPRESSION: MULTIPLE SMALL FOCI OF RESTRICTED DIFFUSION INVOLVING THE LEFT CEREBRAL HEMISPHERE IN A WATERSHED DISTRIBUTION DETAILED ABOVE. NO LARGE TERRITORY INFARCTION, HEMORRHAGE, OR MASS LESION. EVIDENCE OF ACUTE STROKE: YES. LEFT WATERSHED DISTRIBUTION. Carotid Doppler Study 11/16/17 00:00 IMPRESSION: No flow significant stenosis at the right carotid bifurcation. Patient has recent watershed infarct in the left hemisphere, and very slow flow in the left common carotid artery and internal carotid artery. Findings are worrisome for high-grade stenosis or occlusion high in the left internal carotid artery at the skullbase. Consider CT angio of the neck and [place] for followup Antegrade pulsatile vertebral artery flow bilaterally Head CTA 11/16/17 00:00 IMPRESSION: Occluded left high cervical ICA with clot. Intracranial [place] collaterals as above. No CT angio evidence of right carotid bifurcation disease. Neck CTA 11/16/17 00:00 IMPRESSION: Occluded left high cervical ICA with clot. Intracranial [place] collaterals as above. No CT angio evidence of right carotid bifurcation disease. Assessment & Plan - Diagnosis (1) Cerebral infarction, left hemisphere Is this a current diagnosis for this admission?: Yes (2) Rhabdomyolysis Qualifiers: Rhabdomyolysis type: non-traumatic Qualified Code(s): M62.82 - Rhabdomyolysis Is this a current diagnosis for this admission?: Yes (3) Hypertension Qualifiers: Hypertension type: essential hypertension Qualified Code(s): I10 - Essential (primary) hypertension Is this a current diagnosis for this admission?: Yes (4) Uncontrolled diabetes mellitus Qualifiers: Diabetes mellitus type: type 2 Diabetes mellitus intermediate teacher insulin use: without intermediate teacher use Diabetes mellitus complication status: with circulatory complication Diabetes mellitus complication detail: with other circulatory complications Qualified Code(s): E11.59 - Type 2 diabetes mellitus with other circulatory complications; E11.65 - Type 2 diabetes mellitus with hyperglycemia ; E11.65 - Type 2 diabetes mellitus with hyperglycemia; E11.65 - Type 2 diabetes mellitus with hyperglycemia; E11.65 - Type 2 diabetes mellitus with hyperglycemia Is this a current diagnosis for this admission?: Yes (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 Qualified Code(s): I65.22 - Occlusion and stenosis of left carotid artery Is this a current diagnosis for this admission?: Yes (6) Internal carotid artery occlusion Qualifiers: Laterality: left Qualified Code(s): I65.22 - Occlusion and stenosis of left carotid artery Is this a current diagnosis for this admission?: Yes (7) Unresponsive Is this a current diagnosis for this admission?: Yes (8) Hypernatremia Is this a current diagnosis for this admission?: Yes (9) Rhabdomyolysis Qualifiers: Rhabdomyolysis type: non-traumatic Qualified Code(s): M62.82 - Rhabdomyolysis Is this a current diagnosis for this admission?: Yes (10) Noncompliance Is this a current diagnosis for this admission?: Yes (11) Hypokalemia Is this a current diagnosis for this admission?: Yes - Plan Summary Plan Summary: She will continue IV fluid, insulin drip, 5% dextrose.
[2017-11-19 22:55] LABS: ANION GAP 10 (5-19); BLOOD UREA NITROGEN 23 mg/dL (7-20); CALCIUM 8.9 mg/dL (8.4-10.2); CARBON DIOXIDE 19 mmol/L (22-30); CHLORIDE 118 mmol/L (98-107); GLUCOSE 123 mg/dL (75-110); POTASSIUM 3.4 mmol/L (3.6-5.0); SODIUM 146.9 mmol/L (137-145)
[2017-11-20] MEDS: LABETALOL HCL INJ 20 MG/4 ML DISP.SYRIN IV PRN ×3 (00:32→08:45)
[2017-11-20] MEDS: INSULIN, REGULAR 100 UNIT/100 ML NORMAL SALINE IV PRN ×2 (08:45)
[2017-11-20 09:38] LABS: ALANINE AMINOTRANSFERASE 31 U/L (9-52); ALBUMIN 2.6 g/dL (3.5-5.0); ALKALINE PHOSPHATASE 65 U/L (38-126); ANION GAP 9 (5-19); ASPARTATE AMINO TRANSFERASE 33 U/L (14-36); BILIRUBIN,DIRECT 0.3 mg/dL (0.0-0.4); BILIRUBIN,TOTAL 0.4 mg/dL (0.2-1.3); BLOOD UREA NITROGEN 25 mg/dL (7-20); CARBON DIOXIDE 22 mmol/L (22-30); CHLORIDE 118 mmol/L (98-107); GLUCOSE 153 mg/dL (75-110); POTASSIUM 3.6 mmol/L (3.6-5.0); SODIUM 148.5 mmol/L (137-145); TOTAL PROTEIN 4.9 g/dL (6.3-8.2)
[2017-11-20] MEDS: ASPIRIN 300 MG SUPP, RECTAL PR SCH (10:21)
[2017-11-20] MEDS: ENOXAPARIN SODIUM INJ 40 MG/0.4 ML DISP.SYRIN SUBCUT SCH (10:21)
[2017-11-20 15:37] LABS: ANION GAP 10 (5-19); BLOOD UREA NITROGEN 24 mg/dL (7-20); CALCIUM 8.5 mg/dL (8.4-10.2); CARBON DIOXIDE 23 mmol/L (22-30); CHLORIDE 114 mmol/L (98-107); GLUCOSE 186 mg/dL (75-110); SODIUM 146.8 mmol/L (137-145)
[2017-11-20] MEDS: DEXTROSE 5%-WATER 1000 ML 1,000 ML IV PRN (16:10)
[2017-11-20] MEDS: CEFTRIAXONE 2 GM/D5W RTU 2 GM/50 ML RTUPB IV SCH (18:21)
[2017-11-20] MEDS ORDERED: FUROSEMIDE INJ/PF 40 MG/4 ML SDV IV ONE (19:15)
[2017-11-20 19:28] LABS: ANION GAP 10 (5-19); BLOOD UREA NITROGEN 23 mg/dL (7-20); CALCIUM 8.7 mg/dL (8.4-10.2); CARBON DIOXIDE 24 mmol/L (22-30); CHLORIDE 113 mmol/L (98-107); GLUCOSE 191 mg/dL (75-110); POTASSIUM 3.5 mmol/L (3.6-5.0); SODIUM 147.1 mmol/L (137-145)
--- NOTE | 2017-11-20 23:35 | PDOC PROGRESS REPORT ---
Subjective Progress Note for:: 11/20/17 Subjective:: Condition remained poor urine output is decreased, I explained to the patient's son throught the powerhouse helper patient's condition Reason For Visit: LEFT CEREBRAL INFARCTION Physical Exam Vital Signs: Temp Pulse Resp BP Pulse Ox 98.1 F 63 18 92/45 L 99 11/20/17 19:11 11/20/17 19:11 11/20/17 19:11 11/20/17 19:11 11/20/17 19:11 Intake & Output 11/19/17 11/20/17 11/21/17 06:59 06:59 06:59 Intake Total 2558 1414 1069 Output Total 500 200 175 Balance 2058 1214 894 Weight 72.9 kg 74.9 kg General appearance: PRESENT: no acute distress Eye exam: PRESENT: PERRLA Respiratory exam: PRESENT: clear to auscultation barrie Cardiovascular exam: PRESENT: +S1, +S2 GI/Abdominal exam: PRESENT: soft Neurological exam: PRESENT: altered Results Laboratory Results: 11/19/17 18:00 11/20/17 19:05 11/20/17 11/20/17 11/20/17 08:55 14:40 19:05 Sodium 148.5 H 146.8 H 147.1 H Potassium 3.6 4.0 3.5 L Chloride 118 H 114 H 113 H Carbon Dioxide 22 23 24 Anion Gap 9 10 10 BUN 25 H 24 H 23 H Creatinine 1.00 0.97 1.01 Est GFR ( Amer) > 60 > 60 > 60 Est GFR (Non-Af Amer) 56 L 58 L 55 L Glucose 153 H 186 H 191 H Calcium 9.0 8.5 8.7 Total Bilirubin 0.4 AST 33 ALT 31 Alkaline Phosphatase 65 Total Protein 4.9 L Albumin 2.6 L 11/14/17 19:50 Blood Blood Culture - Final NO GROWTH IN 5 DAYS 11/14/17 11/14/17 11/14/17 19:50 19:50 19:50 Creatine Kinase 872 H CK-MB (CK-2) Troponin I 0.069 NT-Pro-B Natriuret Pep 5630 H 11/14/17 11/15/17 11/15/17 19:50 02:23 02:23 Creatine Kinase 809 H CK-MB (CK-2) 10.20 H 9.38 H Troponin I NT-Pro-B Natriuret Pep 11/15/17 11/15/17 07:50 07:50 Creatine Kinase 717 H CK-MB (CK-2) 7.67 H Troponin I NT-Pro-B Natriuret Pep Impressions: Head CT 11/14/17 14:16 IMPRESSION: CHRONIC CHANGES OF ATROPHY AND MICROVASCULAR ISCHEMIA. NO ACUTE PROCESS. THESE CHANGES ARE MILDLY PROGRESSED WHEN COMPARED 10/19/2014 EVIDENCE OF ACUTE STROKE: NO. Chest X-Ray 11/14/17 20:08 IMPRESSION: NO ACUTE RADIOGRAPHIC FINDING IN THE CHEST. Head MRI 11/15/17 00:00 IMPRESSION: MULTIPLE SMALL FOCI OF RESTRICTED DIFFUSION INVOLVING THE LEFT CEREBRAL HEMISPHERE IN A WATERSHED DISTRIBUTION DETAILED ABOVE. NO LARGE TERRITORY INFARCTION, HEMORRHAGE, OR MASS LESION. EVIDENCE OF ACUTE STROKE: YES. LEFT WATERSHED DISTRIBUTION. Carotid Doppler Study 11/16/17 00:00 IMPRESSION: No flow significant stenosis at the right carotid bifurcation. Patient has recent watershed infarct in the left hemisphere, and very slow flow in the left common carotid artery and internal carotid artery. Findings are worrisome for high-grade stenosis or occlusion high in the left internal carotid artery at the skullbase. Consider CT angio of the neck and [place] for followup Antegrade pulsatile vertebral artery flow bilaterally Head CTA 11/16/17 00:00 IMPRESSION: Occluded left high cervical ICA with clot. Intracranial [place] collaterals as above. No CT angio evidence of right carotid bifurcation disease. Neck CTA 11/16/17 00:00 IMPRESSION: Occluded left high cervical ICA with clot. Intracranial [place] collaterals as above. No CT angio evidence of right carotid bifurcation disease. Assessment & Plan - Diagnosis (1) Cerebral infarction, left hemisphere Is this a current diagnosis for this admission?: Yes (2) Rhabdomyolysis Qualifiers: Rhabdomyolysis type: non-traumatic Qualified Code(s): M62.82 - Rhabdomyolysis Is this a current diagnosis for this admission?: Yes (3) Hypertension Qualifiers: Hypertension type: essential hypertension Qualified Code(s): I10 - Essential (primary) hypertension Is this a current diagnosis for this admission?: Yes (4) Uncontrolled diabetes mellitus Qualifiers: Diabetes mellitus type: type 2 Diabetes mellitus jail insulin use: without technician terminal and repeater use Diabetes mellitus complication status: with circulatory complication Diabetes mellitus complication detail: with other circulatory complications Qualified Code(s): E11.59 - Type 2 diabetes mellitus with other circulatory complications; E11.65 - Type 2 diabetes mellitus with hyperglycemia ; E11.65 - Type 2 diabetes mellitus with hyperglycemia; E11.65 - Type 2 diabetes mellitus with hyperglycemia; E11.65 - Type 2 diabetes mellitus with hyperglycemia Is this a current diagnosis for this admission?: Yes (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 Qualified Code(s): I65.22 - Occlusion and stenosis of left carotid artery Is this a current diagnosis for this admission?: Yes (6) Internal carotid artery occlusion Qualifiers: Laterality: left Qualified Code(s): I65.22 - Occlusion and stenosis of left carotid artery Is this a current diagnosis for this admission?: Yes (7) Unresponsive Is this a current diagnosis for this admission?: Yes (8) Hypernatremia Is this a current diagnosis for this admission?: Yes (9) Rhabdomyolysis Qualifiers: Rhabdomyolysis type: non-traumatic Qualified Code(s): M62.82 - Rhabdomyolysis Is this a current diagnosis for this admission?: Yes (10) Noncompliance Is this a current diagnosis for this admission?: Yes (11) Hypokalemia Is this a current diagnosis for this admission?: Yes (12) Oliguria Is this a current diagnosis for this admission?: Yes Plan: adjust fluid - Plan Summary Plan Summary: Continue treatment
[2017-11-21] MEDS ORDERED: FUROSEMIDE INJ/PF 40 MG/4 ML SDV ONE (00:28)
[2017-11-21] MEDS ORDERED: FUROSEMIDE INJ/PF 40 MG/4 ML SDV IV ONE (00:30)
[2017-11-21] MEDS: DEXTROSE 5%-WATER 1000 ML 1,000 ML IV PRN ×3 (01:10→18:38)
[2017-11-21] MEDS: ENOXAPARIN SODIUM INJ 40 MG/0.4 ML DISP.SYRIN SUBCUT SCH (09:53)
[2017-11-21] MEDS: ASPIRIN 300 MG SUPP, RECTAL PR SCH (10:10)
--- NOTE | 2017-11-21 11:02 | PDOC PROGRESS REPORT ---
Subjective Progress Note for:: 11/21/17 Subjective:: This is a 62-year-old patient admitting from the stroke currently unresponsive family on the bedside discussed with the family about the patient's current conditions with the poor prognosis Still currently on insulin drip Reason For Visit: LEFT CEREBRAL INFARCTION Physical Exam Vital Signs: Temp Pulse Resp BP Pulse Ox 98.7 F 62 20 140/64 H 98 11/21/17 07:30 11/21/17 07:30 11/21/17 07:30 11/21/17 07:30 11/21/17 07:30 Intake & Output 11/20/17 11/21/17 11/22/17 06:59 06:59 06:59 Intake Total 1414 2589 Output Total 200 600 Balance 1214 1989 Weight 74.9 kg 73.7 kg General appearance: PRESENT: no acute distress Eye exam: PRESENT: PERRLA Mouth exam: PRESENT: neck supple Respiratory exam: PRESENT: clear to auscultation barrie Cardiovascular exam: PRESENT: +S1, +S2 GI/Abdominal exam: PRESENT: normal bowel sounds, soft Extremities exam: ABSENT: pedal edema Neurological exam: PRESENT: altered Results Laboratory Results: 11/19/17 18:00 11/20/17 11/20/17 14:40 19:05 Sodium 146.8 H 147.1 H Potassium 4.0 3.5 L Chloride 114 H 113 H Carbon Dioxide 23 24 Anion Gap 10 10 BUN 24 H 23 H Creatinine 0.97 1.01 Est GFR ( Amer) > 60 > 60 Est GFR (Non-Af Amer) 58 L 55 L Glucose 186 H 191 H Calcium 8.5 8.7 11/14/17 11/14/17 11/14/17 19:50 19:50 19:50 Creatine Kinase 872 H CK-MB (CK-2) Troponin I 0.069 NT-Pro-B Natriuret Pep 5630 H 11/14/17 11/15/17 11/15/17 19:50 02:23 02:23 Creatine Kinase 809 H CK-MB (CK-2) 10.20 H 9.38 H Troponin I NT-Pro-B Natriuret Pep 11/15/17 11/15/17 07:50 07:50 Creatine Kinase 717 H CK-MB (CK-2) 7.67 H Troponin I NT-Pro-B Natriuret Pep Impressions: Head CT 11/14/17 14:16 IMPRESSION: CHRONIC CHANGES OF ATROPHY AND MICROVASCULAR ISCHEMIA. NO ACUTE PROCESS. THESE CHANGES ARE MILDLY PROGRESSED WHEN COMPARED 10/19/2014 EVIDENCE OF ACUTE STROKE: NO. Chest X-Ray 11/14/17 20:08 IMPRESSION: NO ACUTE RADIOGRAPHIC FINDING IN THE CHEST. Head MRI 11/15/17 00:00 IMPRESSION: MULTIPLE SMALL FOCI OF RESTRICTED DIFFUSION INVOLVING THE LEFT CEREBRAL HEMISPHERE IN A WATERSHED DISTRIBUTION DETAILED ABOVE. NO LARGE TERRITORY INFARCTION, HEMORRHAGE, OR MASS LESION. EVIDENCE OF ACUTE STROKE: YES. LEFT WATERSHED DISTRIBUTION. Carotid Doppler Study 11/16/17 00:00 IMPRESSION: No flow significant stenosis at the right carotid bifurcation. Patient has recent watershed infarct in the left hemisphere, and very slow flow in the left common carotid artery and internal carotid artery. Findings are worrisome for high-grade stenosis or occlusion high in the left internal carotid artery at the skullbase. Consider CT angio of the neck and [place] for followup Antegrade pulsatile vertebral artery flow bilaterally Head CTA 11/16/17 00:00 IMPRESSION: Occluded left high cervical ICA with clot. Intracranial [place] collaterals as above. No CT angio evidence of right carotid bifurcation disease. Neck CTA 11/16/17 00:00 IMPRESSION: Occluded left high cervical ICA with clot. Intracranial [place] collaterals as above. No CT angio evidence of right carotid bifurcation disease. Assessment & Plan - Diagnosis (1) CVA (cerebral vascular accident) Qualifiers: CVA mechanism: unspecified Qualified Code(s): I63.9 - Cerebral infarction, unspecified Is this a current diagnosis for this admission?: Yes (2) Feeding difficulty Is this a current diagnosis for this admission?: Yes (3) Hypertension Qualifiers: Hypertension type: essential hypertension Qualified Code(s): I10 - Essential (primary) hypertension Is this a current diagnosis for this admission?: Yes (4) Uncontrolled diabetes mellitus Qualifiers: Diabetes mellitus type: type 2 Diabetes mellitus shelter insulin use: without intermission coordinator use Diabetes mellitus complication status: with circulatory complication Diabetes mellitus complication detail: with other circulatory complications Qualified Code(s): E11.59 - Type 2 diabetes mellitus with other circulatory complications; E11.65 - Type 2 diabetes mellitus with hyperglycemia ; E11.65 - Type 2 diabetes mellitus with hyperglycemia; E11.65 - Type 2 diabetes mellitus with hyperglycemia; E11.65 - Type 2 diabetes mellitus with hyperglycemia Is this a current diagnosis for this admission?: Yes (5) Unresponsive Is this a current diagnosis for this admission?: Yes (6) Noncompliance Is this a current diagnosis for this admission?: Yes (7) CHRISTELLE (acute kidney injury) Is this a current diagnosis for this admission?: Yes - Time Time Spent with patient: 15-24 minutes Medications reviewed and adjusted accordingly: Yes Anticipated discharge: Other Within: Other - Inpatient Certification Medical Necessity: Need Close Monitoring Due to Risk of Patient Decompensation Post Hospital Care: D/C Provider Network Mgr Documentation - Plan Summary Plan Summary: We will check the patient's Chem-7 Consider to DC the insulin drip and put the subcu insulin Discussed with the family and the bedside regarding the patient's poor conditions patient still full code
[2017-11-21 11:21] LABS: ANION GAP 11 (5-19); BLOOD UREA NITROGEN 19 mg/dL (7-20); CALCIUM 8.5 mg/dL (8.4-10.2); CARBON DIOXIDE 23 mmol/L (22-30); CHLORIDE 113 mmol/L (98-107); GLUCOSE 148 mg/dL (75-110); POTASSIUM 3.4 mmol/L (3.6-5.0)
[2017-11-21] MEDS: LABETALOL HCL INJ 20 MG/4 ML DISP.SYRIN IV PRN (12:34)
[2017-11-21] MEDS ORDERED: DILTIAZEM HCL INJ 25 MG/5 ML VIAL IV PRN (15:34)
[2017-11-21] MEDS: CEFTRIAXONE 2 GM/D5W RTU 2 GM/50 ML RTUPB IV SCH (17:36)
[2017-11-21 18:51] LABS: ANION GAP 11 (5-19); BLOOD UREA NITROGEN 18 mg/dL (7-20); CALCIUM 8.5 mg/dL (8.4-10.2); CARBON DIOXIDE 23 mmol/L (22-30); CHLORIDE 110 mmol/L (98-107); GLUCOSE 161 mg/dL (75-110); POTASSIUM 3.2 mmol/L (3.6-5.0); SODIUM 143.8 mmol/L (137-145)
[2017-11-21] MEDS: POTASSIUM CHLORIDE 20 MEQ/50 ML RTU IV SCH (23:30)
[2017-11-22] MEDS: POTASSI CL 40 MEQ/D5-1/2NS 1L 1000 ML IV PRN ×3 (00:48→17:11)
[2017-11-22] MEDS: POTASSIUM CHLORIDE 20 MEQ/50 ML RTU IV SCH (00:50)
[2017-11-22] MEDS: HYDRALAZINE HCL INJ/PF 20 MG/1 ML SDV IV PRN (01:36)
[2017-11-22 02:39] LABS: ANION GAP 12 (5-19); BLOOD UREA NITROGEN 17 mg/dL (7-20); CALCIUM 8.6 mg/dL (8.4-10.2); CARBON DIOXIDE 22 mmol/L (22-30); CHLORIDE 108 mmol/L (98-107); GLUCOSE 156 mg/dL (75-110); POTASSIUM 3.4 mmol/L (3.6-5.0); SODIUM 141.9 mmol/L (137-145)
[2017-11-22] MEDS: LABETALOL HCL INJ 20 MG/4 ML DISP.SYRIN IV PRN ×3 (03:29→17:11)
[2017-11-22 06:38] LABS: ABSOLUTE BASOPHILS # (AUTO) 0.1 10^3/uL (0.0-0.2); ABSOLUTE LYMPHOCYTES (AUTO) 1.3 10^3/uL (0.5-4.7); ABSOLUTE MONOCYTES (AUTO) 1.5 10^3/uL (0.1-1.4); BASOPHILS % (AUTO) 0.7 % (0-2); EOSINOPHILS % (AUTO) 0.1 % (0-6); HEMATOCRIT 41.3 % (36.0-47.0); HEMOGLOBIN 13.2 g/dL (12.0-15.5); LYMPHOCYTES % (AUTO) 9.5 % (13-45); MEAN CORPUSCULAR HEMOGLOBIN 24.9 pg (27.0-33.4); MEAN CORPUSCULAR HGB CONC 32.1 g/dL (32.0-36.0); MEAN CORPUSCULAR VOLUME 78 fl (80-97); MONOCYTES % (AUTO) 10.5 % (3-13); PLATELET COUNT 113 10^3/uL (150-450); RED BLOOD COUNT 5.32 10^6/uL (3.72-5.28); RED CELL DISTRIBUTION WIDTH 15.3 % (11.5-14.0); SEGMENTED NEUTROPHILS % (AUTO) 79.2 % (42-78); TOTAL CELLS COUNTED % (AUTO) 100 %; WHITE BLOOD COUNT 13.9 10^3/uL (4.0-10.5)
[2017-11-22 06:56] LABS: ANION GAP 10 (5-19); BLOOD UREA NITROGEN 17 mg/dL (7-20); CALCIUM 8.3 mg/dL (8.4-10.2); CARBON DIOXIDE 22 mmol/L (22-30); CHLORIDE 109 mmol/L (98-107); GLUCOSE 253 mg/dL (75-110); POTASSIUM 3.9 mmol/L (3.6-5.0); SODIUM 140.6 mmol/L (137-145)
[2017-11-22] MEDS: INSULIN LISPRO 100 UNIT/ML 3 ML VIAL SUBCUT PRN ×3 (07:29→17:20)
[2017-11-22 09:59] LABS: ANION GAP 9 (5-19); BLOOD UREA NITROGEN 17 mg/dL (7-20); CALCIUM 8.6 mg/dL (8.4-10.2); CARBON DIOXIDE 20 mmol/L (22-30); CHLORIDE 111 mmol/L (98-107); GLUCOSE 240 mg/dL (75-110); POTASSIUM 4.2 mmol/L (3.6-5.0); SODIUM 140.3 mmol/L (137-145)
--- NOTE | 2017-11-22 10:19 | PDOC PROGRESS REPORT ---
Subjective Progress Note for:: 11/22/17 Subjective:: Patient is currently doing same Not responding Patient's insulin drip was DC Blood work is currently stable Discussed with the family and the bedside about patient's poor prognosis Patient's family has been to talk to the other family member Reason For Visit: LEFT CEREBRAL INFARCTION Physical Exam Vital Signs: Temp Pulse Resp BP Pulse Ox 98.5 F 77 16 154/69 H 98 11/22/17 07:39 11/22/17 07:39 11/22/17 07:39 11/22/17 07:39 11/22/17 07:39 Intake & Output 11/21/17 11/22/17 11/23/17 06:59 06:59 06:59 Intake Total 2589 1675 Output Total 600 490 Balance 1988 118 Weight 73.7 kg 74 kg Physical Exam: Unresponsive General appearance: PRESENT: well-developed Eye exam: PRESENT: PERRLA Mouth exam: PRESENT: neck supple Respiratory exam: PRESENT: clear to auscultation barrie Cardiovascular exam: PRESENT: +S1, +S2 GI/Abdominal exam: PRESENT: normal bowel sounds, soft Extremities exam: ABSENT: pedal edema Neurological exam: PRESENT: altered Results Laboratory Results: 11/22/17 06:08 11/22/17 09:38 11/21/17 11/21/17 11/22/17 10:35 18:09 02:05 WBC RBC Hgb Hct MCV MCH MCHC RDW Plt Count Seg Neutrophils % Lymphocytes % Monocytes % Eosinophils % Basophils % Absolute Neutrophils Absolute Lymphocytes Absolute Monocytes Absolute Eosinophils Absolute Basophils Sodium 147.0 H 143.8 141.9 Potassium 3.4 L 3.2 L 3.4 L Chloride 113 H 110 H 108 H Carbon Dioxide 23 23 22 Anion Gap 11 11 12 BUN 19 18 17 Creatinine 0.93 0.86 0.82 Est GFR ( Amer) > 60 > 60 > 60 Est GFR (Non-Af Amer) > 60 > 60 > 60 Glucose 148 H 161 H 156 H Calcium 8.5 8.5 8.6 11/22/17 11/22/17 11/22/17 06:08 06:08 09:38 WBC 13.9 H RBC 5.32 H Hgb 13.2 Hct 41.3 MCV 78 L MCH 24.9 L MCHC 32.1 RDW 15.3 H Plt Count 113 L Seg Neutrophils % 79.2 H Lymphocytes % 9.5 L Monocytes % 10.5 Eosinophils % 0.1 Basophils % 0.7 Absolute Neutrophils 11.0 H Absolute Lymphocytes 1.3 Absolute Monocytes 1.5 H Absolute Eosinophils 0.0 Absolute Basophils 0.1 Sodium 140.6 140.3 Potassium 3.9 4.2 Chloride 109 H 111 H Carbon Dioxide 22 20 L Anion Gap 10 9 BUN 17 17 Creatinine 0.91 0.84 Est GFR ( Amer) > 60 > 60 Est GFR (Non-Af Amer) > 60 > 60 Glucose 253 H 240 H Calcium 8.3 L 8.6 11/14/17 11/14/17 11/14/17 19:50 19:50 19:50 Creatine Kinase 872 H CK-MB (CK-2) Troponin I 0.069 NT-Pro-B Natriuret Pep 5630 H 11/14/17 11/15/17 11/15/17 19:50 02:23 02:23 Creatine Kinase 809 H CK-MB (CK-2) 10.20 H 9.38 H Troponin I NT-Pro-B Natriuret Pep 11/15/17 11/15/17 07:50 07:50 Creatine Kinase 717 H CK-MB (CK-2) 7.67 H Troponin I NT-Pro-B Natriuret Pep Impressions: Head CT 11/14/17 14:16 IMPRESSION: CHRONIC CHANGES OF ATROPHY AND MICROVASCULAR ISCHEMIA. NO ACUTE PROCESS. THESE CHANGES ARE MILDLY PROGRESSED WHEN COMPARED 10/19/2014 EVIDENCE OF ACUTE STROKE: NO. Chest X-Ray 11/14/17 20:08 IMPRESSION: NO ACUTE RADIOGRAPHIC FINDING IN THE CHEST. Head MRI 11/15/17 00:00 IMPRESSION: MULTIPLE SMALL FOCI OF RESTRICTED DIFFUSION INVOLVING THE LEFT CEREBRAL HEMISPHERE IN A WATERSHED DISTRIBUTION DETAILED ABOVE. NO LARGE TERRITORY INFARCTION, HEMORRHAGE, OR MASS LESION. EVIDENCE OF ACUTE STROKE: YES. LEFT WATERSHED DISTRIBUTION. Carotid Doppler Study 11/16/17 00:00 IMPRESSION: No flow significant stenosis at the right carotid bifurcation. Patient has recent watershed infarct in the left hemisphere, and very slow flow in the left common carotid artery and internal carotid artery. Findings are worrisome for high-grade stenosis or occlusion high in the left internal carotid artery at the skullbase. Consider CT angio of the neck and [place] for followup Antegrade pulsatile vertebral artery flow bilaterally Head CTA 11/16/17 00:00 IMPRESSION: Occluded left high cervical ICA with clot. Intracranial [place] collaterals as above. No CT angio evidence of right carotid bifurcation disease. Neck CTA 11/16/17 00:00 IMPRESSION: Occluded left high cervical ICA with clot. Intracranial [place] collaterals as above. No CT angio evidence of right carotid bifurcation disease. Assessment & Plan - Diagnosis (1) CVA (cerebral vascular accident) Qualifiers: CVA mechanism: unspecified Qualified Code(s): I63.9 - Cerebral infarction, unspecified Is this a current diagnosis for this admission?: Yes Plan: Patients is a very poor prognosis continues to current medications (2) Feeding difficulty Is this a current diagnosis for this admission?: Yes (3) Hypertension Qualifiers: Hypertension type: essential hypertension Qualified Code(s): I10 - Essential (primary) hypertension Is this a current diagnosis for this admission?: Yes (4) Uncontrolled diabetes mellitus Qualifiers: Diabetes mellitus type: type 2 Diabetes mellitus oil heaterman insulin use: without oil heaterman use Diabetes mellitus complication status: with circulatory complication Diabetes mellitus complication detail: with other circulatory complications Qualified Code(s): E11.59 - Type 2 diabetes mellitus with other circulatory complications; E11.65 - Type 2 diabetes mellitus with hyperglycemia ; E11.65 - Type 2 diabetes mellitus with hyperglycemia; E11.65 - Type 2 diabetes mellitus with hyperglycemia; E11.65 - Type 2 diabetes mellitus with hyperglycemia Is this a current diagnosis for this admission?: Yes (5) Unresponsive Is this a current diagnosis for this admission?: Yes (6) Noncompliance Is this a current diagnosis for this admission?: Yes (7) CHRISTELLE (acute kidney injury) Is this a current diagnosis for this admission?: Yes - Time Time Spent with patient: 15-24 minutes Medications reviewed and adjusted accordingly: Yes Anticipated discharge: Other Within: Other - Inpatient Certification Medical Necessity: Need Close Monitoring Due to Risk of Patient Decompensation Post Hospital Care: D/C Heel Boom Operator Documentation - Plan Summary Plan Summary: Very extensive discussed with the family on the bedside regarding the patient's poor conditions and going to talk to the family member
[2017-11-22] MEDS: ASPIRIN 300 MG SUPP, RECTAL PR SCH (10:54)
[2017-11-22] MEDS: ENOXAPARIN SODIUM INJ 40 MG/0.4 ML DISP.SYRIN SUBCUT SCH (10:54)
[2017-11-23] MEDS: INSULIN LISPRO 100 UNIT/ML 3 ML VIAL SUBCUT PRN ×3 (00:47→18:25)
[2017-11-23] MEDS: POTASSI CL 40 MEQ/D5-1/2NS 1L 1000 ML IV PRN ×3 (02:32→18:47)
[2017-11-23] MEDS: LABETALOL HCL INJ 20 MG/4 ML DISP.SYRIN IV PRN ×2 (05:42→18:50)
[2017-11-23 06:10] LABS: ANION GAP 7 (5-19); BLOOD UREA NITROGEN 16 mg/dL (7-20); CALCIUM 8.4 mg/dL (8.4-10.2); CARBON DIOXIDE 21 mmol/L (22-30); CHLORIDE 113 mmol/L (98-107); GLUCOSE 269 mg/dL (75-110); POTASSIUM 4.6 mmol/L (3.6-5.0); SODIUM 141.2 mmol/L (137-145)
[2017-11-23] MEDS: ASPIRIN 300 MG SUPP, RECTAL PR SCH (10:30)
--- NOTE | 2017-11-23 21:27 | PDOC PROGRESS REPORT ---
Subjective Progress Note for:: 11/23/17 Subjective:: Patient seen by the bedside the sensorium remains depressed, responds only to noxious stimulus, patient's brother requesting transferred to [place]. Will get a GI consult for PEG tube placement and start making arrangement for [facility] at this point patient has optimize hospital stay Reason For Visit: LEFT CEREBRAL INFARCTION Physical Exam Vital Signs: Temp Pulse Resp BP Pulse Ox 99.0 F 59 L 13 129/55 H 97 11/23/17 19:31 11/23/17 19:31 11/23/17 19:31 11/23/17 19:31 11/23/17 19:31 Intake & Output 11/22/17 11/23/17 11/24/17 06:59 06:59 06:59 Intake Total 1675 2630 1480 Output Total 490 675 200 Balance 1185 1955 1280 Weight 74 kg 80.9 kg General appearance: PRESENT: no acute distress Respiratory exam: PRESENT: clear to auscultation barrie Cardiovascular exam: PRESENT: +S1, +S2 GI/Abdominal exam: PRESENT: soft Neurological exam: PRESENT: altered Results Laboratory Results: 11/22/17 06:08 11/23/17 04:46 11/23/17 04:46 Sodium 141.2 Potassium 4.6 Chloride 113 H Carbon Dioxide 21 L Anion Gap 7 BUN 16 Creatinine 0.91 Est GFR ( Amer) > 60 Est GFR (Non-Af Amer) > 60 Glucose 269 H Calcium 8.4 11/14/17 11/14/17 11/14/17 19:50 19:50 19:50 Creatine Kinase 872 H CK-MB (CK-2) Troponin I 0.069 NT-Pro-B Natriuret Pep 5630 H 11/14/17 11/15/17 11/15/17 19:50 02:23 02:23 Creatine Kinase 809 H CK-MB (CK-2) 10.20 H 9.38 H Troponin I NT-Pro-B Natriuret Pep 11/15/17 11/15/17 07:50 07:50 Creatine Kinase 717 H CK-MB (CK-2) 7.67 H Troponin I NT-Pro-B Natriuret Pep Impressions: Head CT 11/14/17 14:16 IMPRESSION: CHRONIC CHANGES OF ATROPHY AND MICROVASCULAR ISCHEMIA. NO ACUTE PROCESS. THESE CHANGES ARE MILDLY PROGRESSED WHEN COMPARED 10/19/2014 EVIDENCE OF ACUTE STROKE: NO. Chest X-Ray 11/14/17 20:08 IMPRESSION: NO ACUTE RADIOGRAPHIC FINDING IN THE CHEST. Head MRI 11/15/17 00:00 IMPRESSION: MULTIPLE SMALL FOCI OF RESTRICTED DIFFUSION INVOLVING THE LEFT CEREBRAL HEMISPHERE IN A WATERSHED DISTRIBUTION DETAILED ABOVE. NO LARGE TERRITORY INFARCTION, HEMORRHAGE, OR MASS LESION. EVIDENCE OF ACUTE STROKE: YES. LEFT WATERSHED DISTRIBUTION. Carotid Doppler Study 11/16/17 00:00 IMPRESSION: No flow significant stenosis at the right carotid bifurcation. Patient has recent watershed infarct in the left hemisphere, and very slow flow in the left common carotid artery and internal carotid artery. Findings are worrisome for high-grade stenosis or occlusion high in the left internal carotid artery at the skullbase. Consider CT angio of the neck and [place] for followup Antegrade pulsatile vertebral artery flow bilaterally Head CTA 11/16/17 00:00 IMPRESSION: Occluded left high cervical ICA with clot. Intracranial [place] collaterals as above. No CT angio evidence of right carotid bifurcation disease. Neck CTA 11/16/17 00:00 IMPRESSION: Occluded left high cervical ICA with clot. Intracranial [place] collaterals as above. No CT angio evidence of right carotid bifurcation disease. Assessment & Plan - Diagnosis (1) Cerebral infarction, left hemisphere Is this a current diagnosis for this admission?: Yes (2) Rhabdomyolysis Qualifiers: Rhabdomyolysis type: non-traumatic Qualified Code(s): M62.82 - Rhabdomyolysis Is this a current diagnosis for this admission?: Yes (3) Hypertension Qualifiers: Hypertension type: essential hypertension Qualified Code(s): I10 - Essential (primary) hypertension Is this a current diagnosis for this admission?: Yes (4) Uncontrolled diabetes mellitus Qualifiers: Diabetes mellitus type: type 2 Diabetes mellitus assisted insulin use: without exterminator use Diabetes mellitus complication status: with circulatory complication Diabetes mellitus complication detail: with other circulatory complications Qualified Code(s): E11.59 - Type 2 diabetes mellitus with other circulatory complications; E11.65 - Type 2 diabetes mellitus with hyperglycemia ; E11.65 - Type 2 diabetes mellitus with hyperglycemia; E11.65 - Type 2 diabetes mellitus with hyperglycemia; E11.65 - Type 2 diabetes mellitus with hyperglycemia Is this a current diagnosis for this admission?: Yes (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 Qualified Code(s): I65.22 - Occlusion and stenosis of left carotid artery Is this a current diagnosis for this admission?: Yes (6) Internal carotid artery occlusion Qualifiers: Laterality: left Qualified Code(s): I65.22 - Occlusion and stenosis of left carotid artery Is this a current diagnosis for this admission?: Yes (7) Unresponsive Is this a current diagnosis for this admission?: Yes (8) Hypernatremia Is this a current diagnosis for this admission?: Yes (9) Rhabdomyolysis Qualifiers: Rhabdomyolysis type: non-traumatic Qualified Code(s): M62.82 - Rhabdomyolysis Is this a current diagnosis for this admission?: Yes (10) Noncompliance Is this a current diagnosis for this admission?: Yes (11) Hypokalemia Is this a current diagnosis for this admission?: Yes (12) Oliguria Is this a current diagnosis for this admission?: Yes - Plan Summary Plan Summary: Patient will continue 5% dextrose insulin drip until PEG tube is placed
[2017-11-23] MEDS ORDERED: ENOXAPARIN SODIUM INJ 40 MG/0.4 ML DISP.SYRIN SUBCUT ONE (22:00)
[2017-11-23 22:04] LABS: HEMATOCRIT 34.6 % (36.0-47.0); HEMOGLOBIN 11.2 g/dL (12.0-15.5); MEAN CORPUSCULAR HEMOGLOBIN 25.2 pg (27.0-33.4); MEAN CORPUSCULAR HGB CONC 32.2 g/dL (32.0-36.0); MEAN CORPUSCULAR VOLUME 78 fl (80-97); PLATELET COUNT 198 10^3/uL (150-450); RED BLOOD COUNT 4.42 10^6/uL (3.72-5.28); RED CELL DISTRIBUTION WIDTH 15.4 % (11.5-14.0); WHITE BLOOD COUNT 12.5 10^3/uL (4.0-10.5)
[2017-11-23 22:12] LABS: INTERNATIONAL RATION (INR) 1.25; PROTHROMBIN TIME 16.4 SEC (11.4-15.4)
[2017-11-23 22:13] LABS: PARTIAL THROMBOPLASTIN TIME 28.1 SEC (23.5-35.8)
[2017-11-24] MEDS: INSULIN LISPRO 100 UNIT/ML 3 ML VIAL SUBCUT PRN (03:09)
[2017-11-24] MEDS: POTASSI CL 40 MEQ/D5-1/2NS 1L 1000 ML IV PRN (03:17)
[2017-11-24 06:35] LABS: ANION GAP 9 (5-19); BLOOD UREA NITROGEN 12 mg/dL (7-20); CALCIUM 8.7 mg/dL (8.4-10.2); CARBON DIOXIDE 19 mmol/L (22-30); CHLORIDE 113 mmol/L (98-107); GLUCOSE 280 mg/dL (75-110); POTASSIUM 5.3 mmol/L (3.6-5.0); SODIUM 140.8 mmol/L (137-145)
[2017-11-24] MEDS: ENOXAPARIN SODIUM INJ 40 MG/0.4 ML DISP.SYRIN SUBCUT SCH (11:22)
[2017-11-24] MEDS: ASPIRIN 300 MG SUPP, RECTAL PR SCH (11:22)
--- NOTE | 2017-11-24 11:34 | PDOC CONSULTATION ---
Consultation Consult Date: 11/24/17 Consult reason:: Percutaneous endoscopic gastrostomy tube placement History of Present Illness Admission Date/PCP: 11/14/17 19:13 WANDA THOMAS MD History of Present Illness: DOMO BUCHANAN is a 62 year old female with history of multiple cerebrovascular accidents. Patient unable to sustain po nutrition due to her disability Past Medical History Cardiac Medical History: Reports: Hyperlipidema, Hypertension Endocrine Medical History: Reports: Diabetes Mellitus Type 2 Social History Smoking Status: Unknown if Ever Smoked Frequency of Alcohol Use: Occasional Hx Recreational Drug Use: No Hx Prescription Drug Abuse: No Family History Family History: Reviewed & Not Pertinent Parental Family History Reviewed: No Children Family History Reviewed: No Sibling(s) Family History Reviewed.: No Medication/Allergy Home Medications: Unobtainable [Unobtainable] 11/15/17 Allergies/Adverse Reactions: No Known Allergies Allergy (Unverified 10/19/14 18:46) Physical Exam Vital Signs: Temp Pulse Resp BP Pulse Ox 98.5 F 90 22 H 199/89 H 98 11/24/17 07:55 11/24/17 07:55 11/24/17 07:55 11/24/17 07:55 11/24/17 07:55 Intake & Output 11/23/17 11/24/17 11/25/17 06:59 06:59 06:59 Intake Total 2630 2920 Output Total 675 600 Balance 1955 2320 Weight 80.9 kg 82.5 kg General appearance: PRESENT: no acute distress, other - She did not opens her eyes but does not respond to commands. Does not speak. Respiratory exam: PRESENT: clear to auscultation barrie Cardiovascular exam: PRESENT: RRR GI/Abdominal exam: PRESENT: other - Soft, nondistended, no apparent tenderness. No scars in the upper abdomen. Results Laboratory Results: 11/23/17 21:56 11/24/17 05:05 11/23/17 11/23/17 11/24/17 21:56 21:56 05:05 WBC 12.5 H RBC 4.42 Hgb 11.2 L Hct 34.6 L MCV 78 L MCH 25.2 L MCHC 32.2 RDW 15.4 H Plt Count 198 Sodium 140.8 Potassium 5.3 H Chloride 113 H Carbon Dioxide 19 L Anion Gap 9 BUN 12 Creatinine 0.82 0.87 Est GFR ( Amer) > 60 > 60 Est GFR (Non-Af Amer) > 60 > 60 Glucose 280 H Calcium 8.7 11/14/17 11/14/17 11/14/17 19:50 19:50 19:50 Creatine Kinase 872 H CK-MB (CK-2) Troponin I 0.069 NT-Pro-B Natriuret Pep 5630 H 11/14/17 11/15/17 11/15/17 19:50 02:23 02:23 Creatine Kinase 809 H CK-MB (CK-2) 10.20 H 9.38 H Troponin I NT-Pro-B Natriuret Pep 11/15/17 11/15/17 07:50 07:50 Creatine Kinase 717 H CK-MB (CK-2) 7.67 H Troponin I NT-Pro-B Natriuret Pep Impressions: Head CT 11/14/17 14:16 IMPRESSION: CHRONIC CHANGES OF ATROPHY AND MICROVASCULAR ISCHEMIA. NO ACUTE PROCESS. THESE CHANGES ARE MILDLY PROGRESSED WHEN COMPARED 10/19/2014 EVIDENCE OF ACUTE STROKE: NO. Chest X-Ray 11/14/17 20:08 IMPRESSION: NO ACUTE RADIOGRAPHIC FINDING IN THE CHEST. Head MRI 11/15/17 00:00 IMPRESSION: MULTIPLE SMALL FOCI OF RESTRICTED DIFFUSION INVOLVING THE LEFT CEREBRAL HEMISPHERE IN A WATERSHED DISTRIBUTION DETAILED ABOVE. NO LARGE TERRITORY INFARCTION, HEMORRHAGE, OR MASS LESION. EVIDENCE OF ACUTE STROKE: YES. LEFT WATERSHED DISTRIBUTION. Carotid Doppler Study 11/16/17 00:00 IMPRESSION: No flow significant stenosis at the right carotid bifurcation. Patient has recent watershed infarct in the left hemisphere, and very slow flow in the left common carotid artery and internal carotid artery. Findings are worrisome for high-grade stenosis or occlusion high in the left internal carotid artery at the skullbase. Consider CT angio of the neck and [place] for followup Antegrade pulsatile vertebral artery flow bilaterally Head CTA 11/16/17 00:00 IMPRESSION: Occluded left high cervical ICA with clot. Intracranial [place] collaterals as above. No CT angio evidence of right carotid bifurcation disease. Neck CTA 11/16/17 00:00 IMPRESSION: Occluded left high cervical ICA with clot. Intracranial [place] collaterals as above. No CT angio evidence of right carotid bifurcation disease. Assessment & Plan - Diagnosis (1) CVA (cerebral vascular accident) Qualifiers: CVA mechanism: unspecified Qualified Code(s): I63.9 - Cerebral infarction, unspecified Is this a current diagnosis for this admission?: Yes Plan: With inability to maintain oral nutritional support. We will plan percutaneous endoscopic gastrostomy tube placement along with upper endoscopy. I have discussed with the patient's son about the risk and benefits of the procedure including risk of adjacent structure injury, bowel perforation, bleeding, infection, poor wound healing. Patient's son understands and agrees to proceed.
[2017-11-24] MEDS: INSULIN, REGULAR 100 UNIT/100 ML NORMAL SALINE IV PRN ×2 (11:47)
[2017-11-24] MEDS: DEXTROSE 5%-1/2 NORMAL SALINE 1,000 ML IV PRN ×2 (11:48→22:21)
[2017-11-24] MEDS: HYDRALAZINE HCL INJ/PF 20 MG/1 ML SDV IV PRN ×2 (13:37→17:27)
[2017-11-24 13:51] LABS: ANION GAP 7 (5-19); BLOOD UREA NITROGEN 12 mg/dL (7-20); CALCIUM 8.8 mg/dL (8.4-10.2); CARBON DIOXIDE 21 mmol/L (22-30); CHLORIDE 113 mmol/L (98-107); GLUCOSE 265 mg/dL (75-110); SODIUM 140.5 mmol/L (137-145)
[2017-11-24] MEDS ORDERED: LIDOCAINE 2% INJ-PF (20 MG/ML) 10 ML AMPUL ONE (14:51)
[2017-11-24] MEDS ORDERED: PROPOFOL INJ 200 MG/20 ML VIAL IV ONE (14:51)
--- NOTE | 2017-11-24 16:33 | PDOC PROGRESS REPORT ---
Subjective Progress Note for:: 11/24/17 Reason For Visit: LEFT CEREBRAL INFARCTION Physical Exam Vital Signs: Temp Pulse Resp BP Pulse Ox 98.4 F 90 16 203/86 H 97 11/24/17 11:38 11/24/17 14:00 11/24/17 11:38 11/24/17 13:19 11/24/17 11:38 Intake & Output 11/23/17 11/24/17 11/25/17 06:59 06:59 06:59 Intake Total 2630 2920 Output Total 675 600 200 Balance 1955 2320 -200 Weight 80.9 kg 82.5 kg Results Laboratory Results: 11/23/17 21:56 11/24/17 13:11 11/23/17 11/23/17 11/24/17 21:56 21:56 05:05 WBC 12.5 H RBC 4.42 Hgb 11.2 L Hct 34.6 L MCV 78 L MCH 25.2 L MCHC 32.2 RDW 15.4 H Plt Count 198 Sodium 140.8 Potassium 5.3 H Chloride 113 H Carbon Dioxide 19 L Anion Gap 9 BUN 12 Creatinine 0.82 0.87 Est GFR ( Amer) > 60 > 60 Est GFR (Non-Af Amer) > 60 > 60 Glucose 280 H Calcium 8.7 11/24/17 13:11 WBC RBC Hgb Hct MCV MCH MCHC RDW Plt Count Sodium 140.5 Potassium 5.0 Chloride 113 H Carbon Dioxide 21 L Anion Gap 7 BUN 12 Creatinine 0.84 Est GFR ( Amer) > 60 Est GFR (Non-Af Amer) > 60 Glucose 265 H Calcium 8.8 11/14/17 11/14/17 11/14/17 19:50 19:50 19:50 Creatine Kinase 872 H CK-MB (CK-2) Troponin I 0.069 NT-Pro-B Natriuret Pep 5630 H 11/14/17 11/15/17 11/15/17 19:50 02:23 02:23 Creatine Kinase 809 H CK-MB (CK-2) 10.20 H 9.38 H Troponin I NT-Pro-B Natriuret Pep 11/15/17 11/15/17 07:50 07:50 Creatine Kinase 717 H CK-MB (CK-2) 7.67 H Troponin I NT-Pro-B Natriuret Pep Impressions: Head CT 11/14/17 14:16 IMPRESSION: CHRONIC CHANGES OF ATROPHY AND MICROVASCULAR ISCHEMIA. NO ACUTE PROCESS. THESE CHANGES ARE MILDLY PROGRESSED WHEN COMPARED 10/19/2014 EVIDENCE OF ACUTE STROKE: NO. Chest X-Ray 11/14/17 20:08 IMPRESSION: NO ACUTE RADIOGRAPHIC FINDING IN THE CHEST. Head MRI 11/15/17 00:00 IMPRESSION: MULTIPLE SMALL FOCI OF RESTRICTED DIFFUSION INVOLVING THE LEFT CEREBRAL HEMISPHERE IN A WATERSHED DISTRIBUTION DETAILED ABOVE. NO LARGE TERRITORY INFARCTION, HEMORRHAGE, OR MASS LESION. EVIDENCE OF ACUTE STROKE: YES. LEFT WATERSHED DISTRIBUTION. Carotid Doppler Study 11/16/17 00:00 IMPRESSION: No flow significant stenosis at the right carotid bifurcation. Patient has recent watershed infarct in the left hemisphere, and very slow flow in the left common carotid artery and internal carotid artery. Findings are worrisome for high-grade stenosis or occlusion high in the left internal carotid artery at the skullbase. Consider CT angio of the neck and [place] for followup Antegrade pulsatile vertebral artery flow bilaterally Head CTA 11/16/17 00:00 IMPRESSION: Occluded left high cervical ICA with clot. Intracranial [place] collaterals as above. No CT angio evidence of right carotid bifurcation disease. Neck CTA 11/16/17 00:00 IMPRESSION: Occluded left high cervical ICA with clot. Intracranial [place] collaterals as above. No CT angio evidence of right carotid bifurcation disease. Assessment & Plan - Diagnosis (1) CVA (cerebral vascular accident) Qualifiers: CVA mechanism: unspecified Qualified Code(s): I63.9 - Cerebral infarction, unspecified Is this a current diagnosis for this admission?: Yes Plan: Patient taken to the operating room for percutaneous endoscopic gastrostomy tube. However upon placing on monitors and upon anesthesia placing an arterial line, patient noted with systolic pressures up to the mid 200s without any part of the procedure being started. Therefore procedure will be postponed until her blood pressure is under more reasonable control. Will attempt to contact her primary care physician. We will keep the arterial line in until he determines where he wants to monitor her blood pressure.
[2017-11-24] MEDS ORDERED: NITROGLYCERIN/D5W 50 MG/250 ML RTUINJ IV PRN (20:09)
--- NOTE | 2017-11-24 20:25 | PDOC PROGRESS REPORT ---
Subjective Progress Note for:: 11/24/17 Subjective:: Patient was seen by the bedside, she remained unresponsive, she was supposed to have PEG tube placement today by the surgeon she was in endoscopy suite for the procedure but she was found to have elevated blood pressure, the systolic blood pressure was over 200, the surgeon said he does not feel comfortable to proceed with the procedure with the blood pressure this elevated the procedure was canceled and patient was transferred back to her room. There was a little drama today in the hospital patient siblings are resident of [place] but patient son who legally is the next of kin, he is also legally deaf, the siblings were upset that patient gave consent for the PEG tube placement because they stated that patient was not able to give consent and that he was mentally retarded but when they were aware that the consent he granted was for PEG tube placement then they were okay with that, at that point the siblings did not think he was mentally challenged or retarded, this suggests to me that they cannot have both ways , he is either mentally challenged or is not mentally challenged not when his convenience for the family members. Patient son clearly is mentally appropriate is just legally deaf he lives by himself . Patient also noticed to have fever with temperature 103, septic workup is instituted Reason For Visit: LEFT CEREBRAL INFARCTION Physical Exam Vital Signs: Temp Pulse Resp BP Pulse Ox 99.5 F 121 H 17 181/108 H 97 11/24/17 19:55 11/24/17 19:55 11/24/17 19:55 11/24/17 19:55 11/24/17 19:55 Intake & Output 11/23/17 11/24/17 11/25/17 06:59 06:59 06:59 Intake Total 2630 2920 961 Output Total 675 600 500 Balance 1955 2320 461 Weight 80.9 kg 82.5 kg General appearance: PRESENT: other - Unresponsive Respiratory exam: PRESENT: rhonchi Cardiovascular exam: PRESENT: +S1, +S2 Neurological exam: PRESENT: altered Results Laboratory Results: 11/23/17 21:56 11/24/17 13:11 11/23/17 11/23/17 11/24/17 21:56 21:56 05:05 WBC 12.5 H RBC 4.42 Hgb 11.2 L Hct 34.6 L MCV 78 L MCH 25.2 L MCHC 32.2 RDW 15.4 H Plt Count 198 Sodium 140.8 Potassium 5.3 H Chloride 113 H Carbon Dioxide 19 L Anion Gap 9 BUN 12 Creatinine 0.82 0.87 Est GFR ( Amer) > 60 > 60 Est GFR (Non-Af Amer) > 60 > 60 Glucose 280 H Calcium 8.7 11/24/17 13:11 WBC RBC Hgb Hct MCV MCH MCHC RDW Plt Count Sodium 140.5 Potassium 5.0 Chloride 113 H Carbon Dioxide 21 L Anion Gap 7 BUN 12 Creatinine 0.84 Est GFR ( Amer) > 60 Est GFR (Non-Af Amer) > 60 Glucose 265 H Calcium 8.8 11/14/17 11/14/17 11/14/17 19:50 19:50 19:50 Creatine Kinase 872 H CK-MB (CK-2) Troponin I 0.069 NT-Pro-B Natriuret Pep 5630 H 11/14/17 11/15/17 11/15/17 19:50 02:23 02:23 Creatine Kinase 809 H CK-MB (CK-2) 10.20 H 9.38 H Troponin I NT-Pro-B Natriuret Pep 11/15/17 11/15/17 07:50 07:50 Creatine Kinase 717 H CK-MB (CK-2) 7.67 H Troponin I NT-Pro-B Natriuret Pep Impressions: Head CT 11/14/17 14:16 IMPRESSION: CHRONIC CHANGES OF ATROPHY AND MICROVASCULAR ISCHEMIA. NO ACUTE PROCESS. THESE CHANGES ARE MILDLY PROGRESSED WHEN COMPARED 10/19/2014 EVIDENCE OF ACUTE STROKE: NO. Chest X-Ray 11/14/17 20:08 IMPRESSION: NO ACUTE RADIOGRAPHIC FINDING IN THE CHEST. Head MRI 11/15/17 00:00 IMPRESSION: MULTIPLE SMALL FOCI OF RESTRICTED DIFFUSION INVOLVING THE LEFT CEREBRAL HEMISPHERE IN A WATERSHED DISTRIBUTION DETAILED ABOVE. NO LARGE TERRITORY INFARCTION, HEMORRHAGE, OR MASS LESION. EVIDENCE OF ACUTE STROKE: YES. LEFT WATERSHED DISTRIBUTION. Carotid Doppler Study 11/16/17 00:00 IMPRESSION: No flow significant stenosis at the right carotid bifurcation. Patient has recent watershed infarct in the left hemisphere, and very slow flow in the left common carotid artery and internal carotid artery. Findings are worrisome for high-grade stenosis or occlusion high in the left internal carotid artery at the skullbase. Consider CT angio of the neck and [place] for followup Antegrade pulsatile vertebral artery flow bilaterally Head CTA 11/16/17 00:00 IMPRESSION: Occluded left high cervical ICA with clot. Intracranial [place] collaterals as above. No CT angio evidence of right carotid bifurcation disease. Neck CTA 11/16/17 00:00 IMPRESSION: Occluded left high cervical ICA with clot. Intracranial [place] collaterals as above. No CT angio evidence of right carotid bifurcation disease. Assessment & Plan - Diagnosis (1) Cerebral infarction, left hemisphere Is this a current diagnosis for this admission?: Yes (2) Rhabdomyolysis Qualifiers: Rhabdomyolysis type: non-traumatic Qualified Code(s): M62.82 - Rhabdomyolysis Is this a current diagnosis for this admission?: Yes (3) Hypertension Qualifiers: Hypertension type: essential hypertension Qualified Code(s): I10 - Essential (primary) hypertension Is this a current diagnosis for this admission?: Yes (4) Uncontrolled diabetes mellitus Qualifiers: Diabetes mellitus type: type 2 Diabetes mellitus manager long term care insulin use: without half-way use Diabetes mellitus complication status: with circulatory complication Diabetes mellitus complication detail: with other circulatory complications Qualified Code(s): E11.59 - Type 2 diabetes mellitus with other circulatory complications; E11.65 - Type 2 diabetes mellitus with hyperglycemia ; E11.65 - Type 2 diabetes mellitus with hyperglycemia; E11.65 - Type 2 diabetes mellitus with hyperglycemia; E11.65 - Type 2 diabetes mellitus with hyperglycemia Is this a current diagnosis for this admission?: Yes (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 Qualified Code(s): I65.22 - Occlusion and stenosis of left carotid artery Is this a current diagnosis for this admission?: Yes (6) Internal carotid artery occlusion Qualifiers: Laterality: left Qualified Code(s): I65.22 - Occlusion and stenosis of left carotid artery Is this a current diagnosis for this admission?: Yes (7) Unresponsive Is this a current diagnosis for this admission?: Yes (8) Hypernatremia Is this a current diagnosis for this admission?: Yes (9) Rhabdomyolysis Qualifiers: Rhabdomyolysis type: non-traumatic Qualified Code(s): M62.82 - Rhabdomyolysis Is this a current diagnosis for this admission?: Yes (10) Noncompliance Is this a current diagnosis for this admission?: Yes (11) Hypokalemia Is this a current diagnosis for this admission?: Yes (12) Oliguria Is this a current diagnosis for this admission?: Yes (13) Fever Qualifiers: Fever type: unspecified Qualified Code(s): R50.9 - Fever, unspecified Is this a current diagnosis for this admission?: Yes Plan: The differential diagnosis is very long, blood culture, urine culture, chest x- ray hemogram, acetaminophen 650 mg rectally for temperature more than 101, empirically start patient on a broad-spectrum antibiotic , the source of the fever is not known it could be urine ,lung other sources .patient is unresponsive it could also be noninfectious
[2017-11-24 21:05] LABS: ABSOLUTE BASOPHILS # (AUTO) 0.1 10^3/uL (0.0-0.2); ABSOLUTE LYMPHOCYTES (AUTO) 1.1 10^3/uL (0.5-4.7); ABSOLUTE MONOCYTES (AUTO) 1.6 10^3/uL (0.1-1.4); ABSOLUTE NEUT (AUTO) 12.8 10^3/uL (1.7-8.2); BASOPHILS % (AUTO) 0.9 % (0-2); EOSINOPHILS % (AUTO) 0.1 % (0-6); HEMATOCRIT 36.8 % (36.0-47.0); LYMPHOCYTES % (AUTO) 6.9 % (13-45); MEAN CORPUSCULAR HEMOGLOBIN 25.1 pg (27.0-33.4); MEAN CORPUSCULAR HGB CONC 32.5 g/dL (32.0-36.0); MEAN CORPUSCULAR VOLUME 77 fl (80-97); MONOCYTES % (AUTO) 10.1 % (3-13); PLATELET COUNT 251 10^3/uL (150-450); RED BLOOD COUNT 4.77 10^6/uL (3.72-5.28); RED CELL DISTRIBUTION WIDTH 15.1 % (11.5-14.0); TOTAL CELLS COUNTED % (AUTO) 100 %; WHITE BLOOD COUNT 15.7 10^3/uL (4.0-10.5)
[2017-11-24 21:08] LABS: APPEARANCE,URINE CLOUDY; BILIRUBIN,URINE NEGATIVE (NEGATIVE); COLOR,URINE YELLOW; GLUCOSE, URINE 50 mg/dL (NEGATIVE); KETONES,URINE NEGATIVE (NEGATIVE); LEUKOCYTE ESTERASE,URINE TRACE (NEGATIVE); NITRITE,URINE NEGATIVE (NEGATIVE); PROTEIN,URINE 30 mg/dL (NEGATIVE); URINE SPECIFIC GRAVITY 1.013; UROBILINOGEN,URINE NEGATIVE mg/dL (<2.0)
[2017-11-24] MEDS: ACETAMINOPHEN 650 MG SUPP.RECT PR PRN (21:08)
[2017-11-24] MEDS: ERTAPENEM SODIUM 1 GM in NORMAL SALINE 50 ML IV SCH (22:25)
[2017-11-25] MEDS: ACETAMINOPHEN 650 MG SUPP.RECT PR PRN (05:39)
[2017-11-25] MEDS: LABETALOL HCL INJ 20 MG/4 ML DISP.SYRIN IV PRN (06:15)
--- NOTE | 2017-11-25 07:07 | RADIOLOGY REPORT (SQ) ---
EXAM DESCRIPTION: CHEST SINGLE VIEW CLINICAL HISTORY: 62 years Female, fever COMPARISON: November 14, 2017 NUMBER OF VIEWS/TECHNIQUE: 1/AP FINDINGS: Moderate streaky opacity of the left lower lobe. Mild interstitial markings. Normal cardiac silhouette. Atherosclerosis. No pneumothorax. No acute bone defect. IMPRESSION: Left lower lobar pneumonia/atelectasis.
[2017-11-25] MEDS: DEXTROSE 5%-1/2 NORMAL SALINE 1,000 ML IV PRN ×2 (07:37→16:30)
[2017-11-25 08:48] LABS: ABSOLUTE BASOPHILS # (AUTO) 0.1 10^3/uL (0.0-0.2); ABSOLUTE LYMPHOCYTES (AUTO) 1.3 10^3/uL (0.5-4.7); ABSOLUTE MONOCYTES (AUTO) 1.5 10^3/uL (0.1-1.4); ABSOLUTE NEUT (AUTO) 10.8 10^3/uL (1.7-8.2); BASOPHILS % (AUTO) 0.6 % (0-2); EOSINOPHILS % (AUTO) 0.3 % (0-6); HEMATOCRIT 32.5 % (36.0-47.0); HEMOGLOBIN 10.8 g/dL (12.0-15.5); LYMPHOCYTES % (AUTO) 9.2 % (13-45); MEAN CORPUSCULAR HEMOGLOBIN 25.5 pg (27.0-33.4); MEAN CORPUSCULAR HGB CONC 33.2 g/dL (32.0-36.0); MEAN CORPUSCULAR VOLUME 77 fl (80-97); MONOCYTES % (AUTO) 11.1 % (3-13); PLATELET COUNT 244 10^3/uL (150-450); RED BLOOD COUNT 4.24 10^6/uL (3.72-5.28); RED CELL DISTRIBUTION WIDTH 15.1 % (11.5-14.0); SEGMENTED NEUTROPHILS % (AUTO) 78.8 % (42-78); TOTAL CELLS COUNTED % (AUTO) 100 %; WHITE BLOOD COUNT 13.7 10^3/uL (4.0-10.5)
--- NOTE | 2017-11-25 12:49 | Progress Note ---
Provider Note Provider Note: Called by RN to see if I would be able to place PEG I had seen the patient last week and and at that time I felt that the patient is very high risk patient only still responding to painful stimuli events of yesterday reviewed in detail with anesthesia provider, OR, EU etc they were not able to proceed due to significant A line pressure patient needs to be transferred to a tertiary institution for PEG tube placement if the family so wishes. patient is at very high risk and may not make it thru the procedure this was communicated last week with the family My opinion has not changed, I will not be able to place PEG in this patient.
[2017-11-25] MEDS ORDERED: PHARMACY COMMUNICATION ORDER MC NR (13:30)
[2017-11-25] MEDS: ASPIRIN 300 MG SUPP, RECTAL PR SCH (13:55)
[2017-11-25] MEDS: ENOXAPARIN SODIUM INJ 40 MG/0.4 ML DISP.SYRIN SUBCUT SCH (13:55)
--- NOTE | 2017-11-25 16:00 | PDOC PROGRESS REPORT ---
Subjective Progress Note for:: 11/25/17 Subjective:: This is a 62-year-old female status post multiple CVAs. Currently, she is unresponsive to stimuli or voice. Surgical consultation has been requested to place a gastrostomy in the patient. At present, the patient's blood pressure is significantly elevated and she is maintained on a nitro drip. She also has an insulin drip running as well. Meaningful review of systems is unable to be obtained secondary to the patient's neurologic status. Reason For Visit: LEFT CEREBRAL INFARCTION Physical Exam Vital Signs: Temp Pulse Resp BP Pulse Ox 97.8 F 60 17 158/81 H 99 11/25/17 11:22 11/25/17 13:43 11/25/17 11:22 11/25/17 13:43 11/25/17 11:22 Intake & Output 11/24/17 11/25/17 11/26/17 06:59 06:59 06:59 Intake Total 2920 2401 0 Output Total 600 825 0 Balance 2320 1576 0 Weight 82.5 kg 82.2 kg General appearance: PRESENT: obese Head exam: PRESENT: normocephalic Mouth exam: PRESENT: neck supple Neck exam: ABSENT: thyromegaly, tracheal deviation Respiratory exam: PRESENT: decreased breath sounds. ABSENT: accessory muscle use Cardiovascular exam: PRESENT: RRR GI/Abdominal exam: PRESENT: soft. ABSENT: distended Extremities exam: PRESENT: pedal edema Neurological exam: ABSENT: alert, awake Psychiatric exam: PRESENT: other - Responsive Skin exam: ABSENT: cyanosis, jaundice, rash Results Laboratory Results: 11/25/17 08:37 11/24/17 13:11 11/24/17 11/24/17 11/25/17 20:35 20:55 08:37 WBC 15.7 H 13.7 H RBC 4.77 4.24 Hgb 12.0 10.8 L Hct 36.8 32.5 L MCV 77 L 77 L MCH 25.1 L 25.5 L MCHC 32.5 33.2 RDW 15.1 H 15.1 H Plt Count 251 244 Seg Neutrophils % 82.0 H 78.8 H Lymphocytes % 6.9 L 9.2 L Monocytes % 10.1 11.1 Eosinophils % 0.1 0.3 Basophils % 0.9 0.6 Absolute Neutrophils 12.8 H 10.8 H Absolute Lymphocytes 1.1 1.3 Absolute Monocytes 1.6 H 1.5 H Absolute Eosinophils 0.0 0.0 Absolute Basophils 0.1 0.1 Urine Color YELLOW Urine Appearance CLOUDY Urine pH 5.0 Ur Specific [place] 1.013 Urine Protein 30 H Urine Glucose (UA) 50 H Urine Ketones NEGATIVE Urine Blood LARGE H Urine Nitrite NEGATIVE Ur Leukocyte Esterase TRACE H Urine RBC (Auto) >182 11/24/17 20:35 Marcus Catheter Urine Culture - Final Yeast, Not Ro Alb[place] 11/14/17 11/14/17 11/14/17 19:50 19:50 19:50 Creatine Kinase 872 H CK-MB (CK-2) Troponin I 0.069 NT-Pro-B Natriuret Pep 5630 H 11/14/17 11/15/17 11/15/17 19:50 02:23 02:23 Creatine Kinase 809 H CK-MB (CK-2) 10.20 H 9.38 H Troponin I NT-Pro-B Natriuret Pep 11/15/17 11/15/17 07:50 07:50 Creatine Kinase 717 H CK-MB (CK-2) 7.67 H Troponin I NT-Pro-B Natriuret Pep Impressions: Head CT 11/14/17 14:16 IMPRESSION: CHRONIC CHANGES OF ATROPHY AND MICROVASCULAR ISCHEMIA. NO ACUTE PROCESS. THESE CHANGES ARE MILDLY PROGRESSED WHEN COMPARED 10/19/2014 EVIDENCE OF ACUTE STROKE: NO. Head MRI 11/15/17 00:00 IMPRESSION: MULTIPLE SMALL FOCI OF RESTRICTED DIFFUSION INVOLVING THE LEFT CEREBRAL HEMISPHERE IN A WATERSHED DISTRIBUTION DETAILED ABOVE. NO LARGE TERRITORY INFARCTION, HEMORRHAGE, OR MASS LESION. EVIDENCE OF ACUTE STROKE: YES. LEFT WATERSHED DISTRIBUTION. Carotid Doppler Study 11/16/17 00:00 IMPRESSION: No flow significant stenosis at the right carotid bifurcation. Patient has recent watershed infarct in the left hemisphere, and very slow flow in the left common carotid artery and internal carotid artery. Findings are worrisome for high-grade stenosis or occlusion high in the left internal carotid artery at the skullbase. Consider CT angio of the neck and [place] for followup Antegrade pulsatile vertebral artery flow bilaterally Head CTA 11/16/17 00:00 IMPRESSION: Occluded left high cervical ICA with clot. Intracranial [place] collaterals as above. No CT angio evidence of right carotid bifurcation disease. Neck CTA 11/16/17 00:00 IMPRESSION: Occluded left high cervical ICA with clot. Intracranial [place] collaterals as above. No CT angio evidence of right carotid bifurcation disease. Chest X-Ray 11/25/17 00:00 IMPRESSION: Left lower lobar pneumonia/atelectasis. Assessment & Plan - Diagnosis (1) Feeding difficulty Is this a current diagnosis for this admission?: Yes - Plan Summary Plan Summary: This is a patient status post major CVA. She is currently unresponsive and cannot take food orally. Consultation has been requested for gastrostomy placement. Gastrostomy was attempted yesterday, however due to her significantly elevated blood pressure, it was aborted. The patient is still on a nitro drip as well as insulin drip. She is very high risk for any procedure, especially with a nitro drip running. At minimum, the nitro drip should be discontinued prior to any procedure. Will follow.
--- NOTE | 2017-11-25 17:01 | PDOC PROGRESS REPORT ---
Subjective Progress Note for:: 11/25/17 Subjective:: Patient's condition remains very poor, she is virtually unresponsive even to noxious stimulus. I again had a long discussion with patient's son through the sign electrical transmission engineer,I indicated that her condition is very poor, yesterday evening she developed high fever, septic workup was ensued, chest x-ray showed a new right lower lobe pneumonia probably aspiration/nosocomial acquired pneumonia. She was empirically started on ertapenem a broad-spectrum antibiotic. Patient still remained a full code, patient's son and patient's siblings want everything done for this patient. Yesterday the surgeon will not do a PEG tube because the blood pressure was severely elevated and the GI physician does not want to put a PEG tube either because she is a higher risk. She has been on nitroglycerin infusion and as needed labetalol, nasogastric tube is inserted today to initiate Medication for optimal control blood pressure and also to start f feeding Reason For Visit: LEFT CEREBRAL INFARCTION Physical Exam Vital Signs: Temp Pulse Resp BP Pulse Ox 98.4 F 66 16 160/80 H 100 11/25/17 15:38 11/25/17 16:46 11/25/17 15:38 11/25/17 16:46 11/25/17 15:38 Intake & Output 11/24/17 11/25/17 11/26/17 06:59 06:59 06:59 Intake Total 2920 2401 0 Output Total 600 825 0 Balance 2320 1576 0 Weight 82.5 kg 82.2 kg General appearance: PRESENT: other Teeth exam: PRESENT: dental tenderness - Unresponsive Respiratory exam: PRESENT: rhonchi Cardiovascular exam: PRESENT: +S1, +S2 GI/Abdominal exam: PRESENT: soft Neurological exam: PRESENT: altered Results Laboratory Results: 11/25/17 08:37 11/24/17 13:11 11/24/17 11/24/17 11/25/17 20:35 20:55 08:37 WBC 15.7 H 13.7 H RBC 4.77 4.24 Hgb 12.0 10.8 L Hct 36.8 32.5 L MCV 77 L 77 L MCH 25.1 L 25.5 L MCHC 32.5 33.2 RDW 15.1 H 15.1 H Plt Count 251 244 Seg Neutrophils % 82.0 H 78.8 H Lymphocytes % 6.9 L 9.2 L Monocytes % 10.1 11.1 Eosinophils % 0.1 0.3 Basophils % 0.9 0.6 Absolute Neutrophils 12.8 H 10.8 H Absolute Lymphocytes 1.1 1.3 Absolute Monocytes 1.6 H 1.5 H Absolute Eosinophils 0.0 0.0 Absolute Basophils 0.1 0.1 Urine Color YELLOW Urine Appearance CLOUDY Urine pH 5.0 Ur Specific [place] 1.013 Urine Protein 30 H Urine Glucose (UA) 50 H Urine Ketones NEGATIVE Urine Blood LARGE H Urine Nitrite NEGATIVE Ur Leukocyte Esterase TRACE H Urine RBC (Auto) >182 11/24/17 20:35 Marcus Catheter Urine Culture - Final Yeast, Not Ro Albicans 11/14/17 11/14/17 11/14/17 19:50 19:50 19:50 Creatine Kinase 872 H CK-MB (CK-2) Troponin I 0.069 NT-Pro-B Natriuret Pep 5630 H 11/14/17 11/15/17 11/15/17 19:50 02:23 02:23 Creatine Kinase 809 H CK-MB (CK-2) 10.20 H 9.38 H Troponin I NT-Pro-B Natriuret Pep 11/15/17 11/15/17 07:50 07:50 Creatine Kinase 717 H CK-MB (CK-2) 7.67 H Troponin I NT-Pro-B Natriuret Pep Impressions: Head CT 11/14/17 14:16 IMPRESSION: CHRONIC CHANGES OF ATROPHY AND MICROVASCULAR ISCHEMIA. NO ACUTE PROCESS. THESE CHANGES ARE MILDLY PROGRESSED WHEN COMPARED 10/19/2014 EVIDENCE OF ACUTE STROKE: NO. Head MRI 11/15/17 00:00 IMPRESSION: MULTIPLE SMALL FOCI OF RESTRICTED DIFFUSION INVOLVING THE LEFT CEREBRAL HEMISPHERE IN A WATERSHED DISTRIBUTION DETAILED ABOVE. NO LARGE TERRITORY INFARCTION, HEMORRHAGE, OR MASS LESION. EVIDENCE OF ACUTE STROKE: YES. LEFT WATERSHED DISTRIBUTION. Carotid Doppler Study 11/16/17 00:00 IMPRESSION: No flow significant stenosis at the right carotid bifurcation. Patient has recent watershed infarct in the left hemisphere, and very slow flow in the left common carotid artery and internal carotid artery. Findings are worrisome for high-grade stenosis or occlusion high in the left internal carotid artery at the skullbase. Consider CT angio of the neck and [place] for followup Antegrade pulsatile vertebral artery flow bilaterally Head CTA 11/16/17 00:00 IMPRESSION: Occluded left high cervical ICA with clot. Intracranial [place] collaterals as above. No CT angio evidence of right carotid bifurcation disease. Neck CTA 11/16/17 00:00 IMPRESSION: Occluded left high cervical ICA with clot. Intracranial [place] collaterals as above. No CT angio evidence of right carotid bifurcation disease. Chest X-Ray 11/25/17 00:00 IMPRESSION: Left lower lobar pneumonia/atelectasis. Assessment & Plan - Diagnosis (1) Cerebral infarction, left hemisphere Is this a current diagnosis for this admission?: Yes (2) Hypertension Qualifiers: Hypertension type: essential hypertension Qualified Code(s): I10 - Essential (primary) hypertension Is this a current diagnosis for this admission?: Yes Plan: NG tube inserted, start metoprolol, losartan, hydralazine (3) Uncontrolled diabetes mellitus Qualifiers: Diabetes mellitus type: type 2 Diabetes mellitus senior living insulin use: without termite renewal inspector use Diabetes mellitus complication status: with circulatory complication Diabetes mellitus complication detail: with other circulatory complications Qualified Code(s): E11.59 - Type 2 diabetes mellitus with other circulatory complications; E11.65 - Type 2 diabetes mellitus with hyperglycemia ; E11.65 - Type 2 diabetes mellitus with hyperglycemia; E11.65 - Type 2 diabetes mellitus with hyperglycemia; E11.65 - Type 2 diabetes mellitus with hyperglycemia Is this a current diagnosis for this admission?: Yes (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 Qualified Code(s): I65.22 - Occlusion and stenosis of left carotid artery Is this a current diagnosis for this admission?: Yes (5) Internal carotid artery occlusion Qualifiers: Laterality: left Qualified Code(s): I65.22 - Occlusion and stenosis of left carotid artery Is this a current diagnosis for this admission?: Yes (6) Unresponsive Is this a current diagnosis for this admission?: Yes (7) Hypernatremia Is this a current diagnosis for this admission?: Yes (8) Rhabdomyolysis Qualifiers: Rhabdomyolysis type: non-traumatic Qualified Code(s): M62.82 - Rhabdomyolysis Is this a current diagnosis for this admission?: Yes (9) Noncompliance Is this a current diagnosis for this admission?: Yes (10) Hypokalemia Is this a current diagnosis for this admission?: Yes (11) Oliguria Is this a current diagnosis for this admission?: Yes (12) Fever Qualifiers: Fever type: unspecified Qualified Code(s): R50.9 - Fever, unspecified Is this a current diagnosis for this admission?: Yes (13) Nosocomial pneumonia Is this a current diagnosis for this admission?: Yes Plan: Start ertapenem (14) Dysphagia due to recent cerebral infarction Is this a current diagnosis for this admission?: Yes Plan: Patient NG tube for feeding
--- NOTE | 2017-11-25 17:43 | RADIOLOGY REPORT (SQ) ---
EXAM DESCRIPTION: KUB/ABDOMEN (SINGLE VIEW) COMPLETED DATE/TIME: 11/25/2017 5:30 pm REASON FOR STUDY: Check Placement of NG Tube COMPARISON: None. NUMBER OF VIEWS: One view. TECHNIQUE: Supine radiographic image of the abdomen acquired. LIMITATIONS: None. FINDINGS: BOWEL GAS PATTERN: Normal bowel gas pattern. No dilated loops. CALCIFICATIONS: No suspicious calcifications. SOFT TISSUES: No gross mass or suggestion of organomegaly. HARDWARE: NG tube is seen with its tip the level of the left upper quadrant presumably at the level o f the mid stomach. BONES: No acute fracture. No worrisome bone lesions. OTHER: No other significant finding. IMPRESSION: NG tube with its tip at the level of the mid stomach. Other findings as noted above. TECHNICAL DOCUMENTATION: JOB ID: [id number] [employer]- All Rights Reserved Reading location - IP/workstation name: [email or web address]
[2017-11-25] MEDS: AMLODIPINE BESYLATE 5 MG TABLET PO SCH (17:52)
[2017-11-25] MEDS: LOSARTAN POTASSIUM 50 MG TABLET PO SCH (17:52)
[2017-11-25] MEDS: INSULIN, REGULAR 100 UNIT/100 ML NORMAL SALINE IV PRN ×2 (17:52)
[2017-11-25] MEDS: METOPROLOL TARTRATE 100 MG TABLET PO SCH (17:52)
[2017-11-25] MEDS: ERTAPENEM SODIUM 1 GM in NORMAL SALINE 50 ML IV SCH (23:02)
[2017-11-25] MEDS: HYDRALAZINE HCL 50 MG TABLET PO SCH (23:03)
[2017-11-26 05:15] LABS: ABSOLUTE BASOPHILS # (AUTO) 0.1 10^3/uL (0.0-0.2); ABSOLUTE LYMPHOCYTES (AUTO) 1.2 10^3/uL (0.5-4.7); ABSOLUTE MONOCYTES (AUTO) 1.3 10^3/uL (0.1-1.4); ABSOLUTE NEUT (AUTO) 13.1 10^3/uL (1.7-8.2); BASOPHILS % (AUTO) 0.4 % (0-2); EOSINOPHILS % (AUTO) 0.2 % (0-6); HEMATOCRIT 36.5 % (36.0-47.0); HEMOGLOBIN 11.8 g/dL (12.0-15.5); LYMPHOCYTES % (AUTO) 7.7 % (13-45); MEAN CORPUSCULAR HEMOGLOBIN 24.7 pg (27.0-33.4); MEAN CORPUSCULAR HGB CONC 32.3 g/dL (32.0-36.0); MEAN CORPUSCULAR VOLUME 77 fl (80-97); MONOCYTES % (AUTO) 8.1 % (3-13); PLATELET COUNT 246 10^3/uL (150-450); RED BLOOD COUNT 4.76 10^6/uL (3.72-5.28); RED CELL DISTRIBUTION WIDTH 15.5 % (11.5-14.0); SEGMENTED NEUTROPHILS % (AUTO) 83.6 % (42-78); TOTAL CELLS COUNTED % (AUTO) 100 %; WHITE BLOOD COUNT 15.7 10^3/uL (4.0-10.5)
[2017-11-26] MEDS: HYDRALAZINE HCL 50 MG TABLET PO SCH ×3 (06:19→21:04)
[2017-11-26] MEDS: METOPROLOL TARTRATE 100 MG TABLET PO SCH ×2 (06:19→19:25)
[2017-11-26] MEDS: ASPIRIN 300 MG SUPP, RECTAL PR SCH (09:53)
[2017-11-26] MEDS: ENOXAPARIN SODIUM INJ 40 MG/0.4 ML DISP.SYRIN SUBCUT SCH (09:53)
[2017-11-26 12:55] LABS: ALANINE AMINOTRANSFERASE 35 U/L (9-52); ALBUMIN 2.5 g/dL (3.5-5.0); ALKALINE PHOSPHATASE 85 U/L (38-126); ANION GAP 7 (5-19); ASPARTATE AMINO TRANSFERASE 47 U/L (14-36); BILIRUBIN,DIRECT 0.2 mg/dL (0.0-0.4); BILIRUBIN,TOTAL 0.2 mg/dL (0.2-1.3); BLOOD UREA NITROGEN 13 mg/dL (7-20); CALCIUM 8.7 mg/dL (8.4-10.2); CARBON DIOXIDE 22 mmol/L (22-30); CHLORIDE 108 mmol/L (98-107); GLUCOSE 182 mg/dL (75-110); POTASSIUM 4.3 mmol/L (3.6-5.0); SODIUM 136.8 mmol/L (137-145); TOTAL PROTEIN 5.2 g/dL (6.3-8.2)
[2017-11-26] MEDS: INSULIN LISPRO 100 UNIT/ML 3 ML VIAL SUBCUT PRN (19:23)
[2017-11-26] MEDS: LOSARTAN POTASSIUM 50 MG TABLET PO SCH (19:27)
[2017-11-26] MEDS: AMLODIPINE BESYLATE 5 MG TABLET PO SCH (19:27)
[2017-11-26] MEDS: ERTAPENEM SODIUM 1 GM in NORMAL SALINE 50 ML IV SCH (21:05)
--- NOTE | 2017-11-26 22:16 | PDOC PROGRESS REPORT ---
Subjective Progress Note for:: 11/26/17 Subjective:: Seen by the bedside condition remained the same ,NG tube in place, blood pressure better controlled today Reason For Visit: LEFT CEREBRAL INFARCTION Physical Exam Vital Signs: Temp Pulse Resp BP Pulse Ox 98.2 F 71 20 139/64 H 92 11/26/17 19:12 11/26/17 19:12 11/26/17 19:12 11/26/17 19:12 11/26/17 19:12 Intake & Output 11/25/17 11/26/17 11/27/17 06:59 06:59 06:59 Intake Total 2401 2397 240 Output Total 825 500 40 Balance 1576 1897 200 Weight 82.2 kg 84.6 kg Head exam: PRESENT: atraumatic Respiratory exam: PRESENT: rhonchi Cardiovascular exam: PRESENT: +S1, +S2 GI/Abdominal exam: PRESENT: soft Neurological exam: PRESENT: other - Unresponsive Results Laboratory Results: 11/26/17 04:48 11/26/17 04:48 11/26/17 11/26/17 04:48 04:48 WBC 15.7 H RBC 4.76 Hgb 11.8 L Hct 36.5 MCV 77 L MCH 24.7 L MCHC 32.3 RDW 15.5 H Plt Count 246 Seg Neutrophils % 83.6 H Lymphocytes % 7.7 L Monocytes % 8.1 Eosinophils % 0.2 Basophils % 0.4 Absolute Neutrophils 13.1 H Absolute Lymphocytes 1.2 Absolute Monocytes 1.3 Absolute Eosinophils 0.0 Absolute Basophils 0.1 Sodium 136.8 L Potassium 4.3 Chloride 108 H Carbon Dioxide 22 Anion Gap 7 BUN 13 Creatinine 1.04 Est GFR ( Amer) > 60 Est GFR (Non-Af Amer) 53 L Glucose 182 H Calcium 8.7 Total Bilirubin 0.2 AST 47 H ALT 35 Alkaline Phosphatase 85 Total Protein 5.2 L Albumin 2.5 L 11/14/17 11/14/17 11/14/17 19:50 19:50 19:50 Creatine Kinase 872 H CK-MB (CK-2) Troponin I 0.069 NT-Pro-B Natriuret Pep 5630 H 11/14/17 11/15/17 11/15/17 19:50 02:23 02:23 Creatine Kinase 809 H CK-MB (CK-2) 10.20 H 9.38 H Troponin I NT-Pro-B Natriuret Pep 11/15/17 11/15/17 07:50 07:50 Creatine Kinase 717 H CK-MB (CK-2) 7.67 H Troponin I NT-Pro-B Natriuret Pep Impressions: Head CT 11/14/17 14:16 IMPRESSION: CHRONIC CHANGES OF ATROPHY AND MICROVASCULAR ISCHEMIA. NO ACUTE PROCESS. THESE CHANGES ARE MILDLY PROGRESSED WHEN COMPARED 10/19/2014 EVIDENCE OF ACUTE STROKE: NO. Head MRI 11/15/17 00:00 IMPRESSION: MULTIPLE SMALL FOCI OF RESTRICTED DIFFUSION INVOLVING THE LEFT CEREBRAL HEMISPHERE IN A WATERSHED DISTRIBUTION DETAILED ABOVE. NO LARGE TERRITORY INFARCTION, HEMORRHAGE, OR MASS LESION. EVIDENCE OF ACUTE STROKE: YES. LEFT WATERSHED DISTRIBUTION. Carotid Doppler Study 11/16/17 00:00 IMPRESSION: No flow significant stenosis at the right carotid bifurcation. Patient has recent watershed infarct in the left hemisphere, and very slow flow in the left common carotid artery and internal carotid artery. Findings are worrisome for high-grade stenosis or occlusion high in the left internal carotid artery at the skullbase. Consider CT angio of the neck and [place] for followup Antegrade pulsatile vertebral artery flow bilaterally Head CTA 11/16/17 00:00 IMPRESSION: Occluded left high cervical ICA with clot. Intracranial [place] collaterals as above. No CT angio evidence of right carotid bifurcation disease. Neck CTA 11/16/17 00:00 IMPRESSION: Occluded left high cervical ICA with clot. Intracranial [place] collaterals as above. No CT angio evidence of right carotid bifurcation disease. Chest X-Ray 11/25/17 00:00 IMPRESSION: Left lower lobar pneumonia/atelectasis. KUB X-Ray 11/25/17 13:26 IMPRESSION: NG tube with its tip at the level of the mid stomach. Other findings as noted above. Assessment & Plan - Diagnosis (1) Cerebral infarction, left hemisphere Is this a current diagnosis for this admission?: Yes Plan: EEG ordered (2) Hypertension Qualifiers: Hypertension type: essential hypertension Qualified Code(s): I10 - Essential (primary) hypertension Is this a current diagnosis for this admission?: Yes Plan: NG tube inserted, start metoprolol, losartan, hydralazine (3) Uncontrolled diabetes mellitus Qualifiers: Diabetes mellitus type: type 2 Diabetes mellitus chcf insulin use: without terminal supervisor use Diabetes mellitus complication status: with circulatory complication Diabetes mellitus complication detail: with other circulatory complications Qualified Code(s): E11.59 - Type 2 diabetes mellitus with other circulatory complications; E11.65 - Type 2 diabetes mellitus with hyperglycemia ; E11.65 - Type 2 diabetes mellitus with hyperglycemia; E11.65 - Type 2 diabetes mellitus with hyperglycemia; E11.65 - Type 2 diabetes mellitus with hyperglycemia Is this a current diagnosis for this admission?: Yes (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 Qualified Code(s): I65.22 - Occlusion and stenosis of left carotid artery Is this a current diagnosis for this admission?: Yes (5) Internal carotid artery occlusion Qualifiers: Laterality: left Qualified Code(s): I65.22 - Occlusion and stenosis of left carotid artery Is this a current diagnosis for this admission?: Yes (6) Unresponsive Is this a current diagnosis for this admission?: Yes (7) Hypernatremia Is this a current diagnosis for this admission?: Yes (8) Rhabdomyolysis Qualifiers: Rhabdomyolysis type: non-traumatic Qualified Code(s): M62.82 - Rhabdomyolysis Is this a current diagnosis for this admission?: Yes (9) Noncompliance Is this a current diagnosis for this admission?: Yes (10) Hypokalemia Is this a current diagnosis for this admission?: Yes (11) Oliguria Is this a current diagnosis for this admission?: Yes (12) Fever Qualifiers: Fever type: unspecified Qualified Code(s): R50.9 - Fever, unspecified Is this a current diagnosis for this admission?: Yes (13) Nosocomial pneumonia Is this a current diagnosis for this admission?: Yes (14) Dysphagia due to recent cerebral infarction Is this a current diagnosis for this admission?: Yes - Plan Summary Plan Summary: Very poor prognosis
[2017-11-27] MEDS: METOPROLOL TARTRATE 100 MG TABLET PO SCH ×2 (05:32→19:37)
[2017-11-27] MEDS: HYDRALAZINE HCL 50 MG TABLET PO SCH ×3 (05:32→21:46)
--- NOTE | 2017-11-27 09:36 | PDOC PROGRESS REPORT ---
Subjective Progress Note for:: 11/27/17 Reason For Visit: LEFT CEREBRAL INFARCTION Follow-up to determine if patient is appropriate candidate for PEG tube placement. She is off IV nitroglycerin, and insulin drip. She is accompanied by her son who is . Apparently there are multiple family members weighing in on her care plan including advanced directives, level of aggressiveness of care etc. Physical Exam Vital Signs: Temp Pulse Resp BP Pulse Ox 98.5 F 57 L 16 140/61 H 98 11/27/17 07:26 11/27/17 07:26 11/27/17 07:26 11/27/17 07:26 11/27/17 07:26 Intake & Output 11/26/17 11/27/17 11/28/17 06:59 06:59 06:59 Intake Total 2397 270 Output Total 500 540 Balance 1897 -270 Weight 84.6 kg 81.7 kg General appearance: PRESENT: other - Essentially in a comatose state. Unresponsive ; naso-gastric tube in position Results Laboratory Results: 11/26/17 04:48 11/26/17 04:48 11/26/17 04:48 Sodium 136.8 L Potassium 4.3 Chloride 108 H Carbon Dioxide 22 Anion Gap 7 BUN 13 Creatinine 1.04 Est GFR ( Amer) > 60 Est GFR (Non-Af Amer) 53 L Glucose 182 H Calcium 8.7 Total Bilirubin 0.2 AST 47 H ALT 35 Alkaline Phosphatase 85 Total Protein 5.2 L Albumin 2.5 L 11/14/17 11/14/17 11/14/17 19:50 19:50 19:50 Creatine Kinase 872 H CK-MB (CK-2) Troponin I 0.069 NT-Pro-B Natriuret Pep 5630 H 11/14/17 11/15/17 11/15/17 19:50 02:23 02:23 Creatine Kinase 809 H CK-MB (CK-2) 10.20 H 9.38 H Troponin I NT-Pro-B Natriuret Pep 11/15/17 11/15/17 07:50 07:50 Creatine Kinase 717 H CK-MB (CK-2) 7.67 H Troponin I NT-Pro-B Natriuret Pep Impressions: Head CT 11/14/17 14:16 IMPRESSION: CHRONIC CHANGES OF ATROPHY AND MICROVASCULAR ISCHEMIA. NO ACUTE PROCESS. THESE CHANGES ARE MILDLY PROGRESSED WHEN COMPARED 10/19/2014 EVIDENCE OF ACUTE STROKE: NO. Head MRI 11/15/17 00:00 IMPRESSION: MULTIPLE SMALL FOCI OF RESTRICTED DIFFUSION INVOLVING THE LEFT CEREBRAL HEMISPHERE IN A WATERSHED DISTRIBUTION DETAILED ABOVE. NO LARGE TERRITORY INFARCTION, HEMORRHAGE, OR MASS LESION. EVIDENCE OF ACUTE STROKE: YES. LEFT WATERSHED DISTRIBUTION. Carotid Doppler Study 11/16/17 00:00 IMPRESSION: No flow significant stenosis at the right carotid bifurcation. Patient has recent watershed infarct in the left hemisphere, and very slow flow in the left common carotid artery and internal carotid artery. Findings are worrisome for high-grade stenosis or occlusion high in the left internal carotid artery at the skullbase. Consider CT angio of the neck and [place] of [place] for followup Antegrade pulsatile vertebral artery flow bilaterally Head CTA 11/16/17 00:00 IMPRESSION: Occluded left high cervical ICA with clot. Intracranial [place] collaterals as above. No CT angio evidence of right carotid bifurcation disease. Neck CTA 11/16/17 00:00 IMPRESSION: Occluded left high cervical ICA with clot. Intracranial [place] collaterals as above. No CT angio evidence of right carotid bifurcation disease. Chest X-Ray 11/25/17 00:00 IMPRESSION: Left lower lobar pneumonia/atelectasis. KUB X-Ray 11/25/17 13:26 IMPRESSION: NG tube with its tip at the level of the mid stomach. Other findings as noted above. Assessment & Plan - Diagnosis (1) Cerebral infarction, left hemisphere Is this a current diagnosis for this admission?: Yes Plan: With severe neurologic deficit. Discussion: A consensus most family members is emerging; They may be planning to withdrawal therapeutic care and move towards a palliative care path. Therefore we will not plan a feeding tube placement at this time.
[2017-11-27] MEDS: ASPIRIN 300 MG SUPP, RECTAL PR SCH (11:06)
[2017-11-27] MEDS: ENOXAPARIN SODIUM INJ 40 MG/0.4 ML DISP.SYRIN SUBCUT SCH (11:07)
[2017-11-27] MEDS: INSULIN LISPRO 100 UNIT/ML 3 ML VIAL SUBCUT PRN (13:24)
[2017-11-27] MEDS: AMLODIPINE BESYLATE 5 MG TABLET PO SCH (19:34)
[2017-11-27] MEDS: LOSARTAN POTASSIUM 50 MG TABLET PO SCH (19:37)
--- NOTE | 2017-11-27 21:30 | PDOC PROGRESS REPORT ---
Subjective Progress Note for:: 11/27/17 Subjective:: Patient condition remains the same, she is unresponsive, no designated POA, patient have no living will, the next of kin the son is deaf cannot make any reasonable decision, he wants his uncles to make decision for the patient. PEG tube was planned previously, the RN, nurse, suggested that family members want the PEG tube on hold for now, is seems they are planning or thinking of making her comfort care when they arrived from [place] was Thursday or Thursday Reason For Visit: LEFT CEREBRAL INFARCTION Physical Exam Vital Signs: Temp Pulse Resp BP Pulse Ox 97.6 F 58 L 16 147/55 H 100 11/27/17 19:44 11/27/17 19:44 11/27/17 19:44 11/27/17 19:44 11/27/17 19:44 Intake & Output 11/26/17 11/27/17 11/28/17 06:59 06:59 06:59 Intake Total 2397 270 0 Output Total 500 540 375 Balance 1897 -270 -375 Weight 84.6 kg 81.7 kg Eye exam: PRESENT: PERRLA Respiratory exam: PRESENT: clear to auscultation barrie Cardiovascular exam: PRESENT: +S1, +S2 GI/Abdominal exam: PRESENT: soft Neurological exam: PRESENT: altered Results Laboratory Results: 11/26/17 04:48 11/26/17 04:48 11/14/17 11/14/17 11/14/17 19:50 19:50 19:50 Creatine Kinase 872 H CK-MB (CK-2) Troponin I 0.069 NT-Pro-B Natriuret Pep 5630 H 11/14/17 11/15/17 11/15/17 19:50 02:23 02:23 Creatine Kinase 809 H CK-MB (CK-2) 10.20 H 9.38 H Troponin I NT-Pro-B Natriuret Pep 11/15/17 11/15/17 07:50 07:50 Creatine Kinase 717 H CK-MB (CK-2) 7.67 H Troponin I NT-Pro-B Natriuret Pep Impressions: Head CT 11/14/17 14:16 IMPRESSION: CHRONIC CHANGES OF ATROPHY AND MICROVASCULAR ISCHEMIA. NO ACUTE PROCESS. THESE CHANGES ARE MILDLY PROGRESSED WHEN COMPARED 10/19/2014 EVIDENCE OF ACUTE STROKE: NO. Head MRI 11/15/17 00:00 IMPRESSION: MULTIPLE SMALL FOCI OF RESTRICTED DIFFUSION INVOLVING THE LEFT CEREBRAL HEMISPHERE IN A WATERSHED DISTRIBUTION DETAILED ABOVE. NO LARGE TERRITORY INFARCTION, HEMORRHAGE, OR MASS LESION. EVIDENCE OF ACUTE STROKE: YES. LEFT WATERSHED DISTRIBUTION. Carotid Doppler Study 11/16/17 00:00 IMPRESSION: No flow significant stenosis at the right carotid bifurcation. Patient has recent watershed infarct in the left hemisphere, and very slow flow in the left common carotid artery and internal carotid artery. Findings are worrisome for high-grade stenosis or occlusion high in the left internal carotid artery at the skullbase. Consider CT angio of the neck and [place] of [place] for followup Antegrade pulsatile vertebral artery flow bilaterally Head CTA 11/16/17 00:00 IMPRESSION: Occluded left high cervical ICA with clot. Intracranial [place] of [place] collaterals as above. No CT angio evidence of right carotid bifurcation disease. Neck CTA 11/16/17 00:00 IMPRESSION: Occluded left high cervical ICA with clot. Intracranial [place] of [place] collaterals as above. No CT angio evidence of right carotid bifurcation disease. Chest X-Ray 11/25/17 00:00 IMPRESSION: Left lower lobar pneumonia/atelectasis. KUB X-Ray 11/25/17 13:26 IMPRESSION: NG tube with its tip at the level of the mid stomach. Other findings as noted above. Assessment & Plan - Diagnosis (1) Cerebral infarction, left hemisphere Is this a current diagnosis for this admission?: Yes (2) Hypertension Qualifiers: Hypertension type: essential hypertension Qualified Code(s): I10 - Essential (primary) hypertension Is this a current diagnosis for this admission?: Yes (3) Uncontrolled diabetes mellitus Qualifiers: Diabetes mellitus type: type 2 Diabetes mellitus assisted insulin use: without assisted use Diabetes mellitus complication status: with circulatory complication Diabetes mellitus complication detail: with other circulatory complications Qualified Code(s): E11.59 - Type 2 diabetes mellitus with other circulatory complications; E11.65 - Type 2 diabetes mellitus with hyperglycemia ; E11.65 - Type 2 diabetes mellitus with hyperglycemia; E11.65 - Type 2 diabetes mellitus with hyperglycemia; E11.65 - Type 2 diabetes mellitus with hyperglycemia Is this a current diagnosis for this admission?: Yes (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 Qualified Code(s): I65.22 - Occlusion and stenosis of left carotid artery Is this a current diagnosis for this admission?: Yes (5) Internal carotid artery occlusion Qualifiers: Laterality: left Qualified Code(s): I65.22 - Occlusion and stenosis of left carotid artery Is this a current diagnosis for this admission?: Yes (6) Unresponsive Is this a current diagnosis for this admission?: Yes (7) Hypernatremia Is this a current diagnosis for this admission?: Yes (8) Rhabdomyolysis Qualifiers: Rhabdomyolysis type: non-traumatic Qualified Code(s): M62.82 - Rhabdomyolysis Is this a current diagnosis for this admission?: Yes (9) Noncompliance Is this a current diagnosis for this admission?: Yes (10) Hypokalemia Is this a current diagnosis for this admission?: Yes (11) Oliguria Is this a current diagnosis for this admission?: Yes (12) Fever Qualifiers: Fever type: unspecified Qualified Code(s): R50.9 - Fever, unspecified Is this a current diagnosis for this admission?: Yes (13) Nosocomial pneumonia Is this a current diagnosis for this admission?: Yes (14) Dysphagia due to recent cerebral infarction Is this a current diagnosis for this admission?: Yes
[2017-11-27] MEDS: ERTAPENEM SODIUM 1 GM in NORMAL SALINE 50 ML IV SCH (21:46)
[2017-11-28] MEDS: METOPROLOL TARTRATE 100 MG TABLET PO SCH ×2 (05:10→17:17)
[2017-11-28] MEDS: HYDRALAZINE HCL 50 MG TABLET PO SCH ×3 (05:10→21:12)
[2017-11-28] MEDS: ASPIRIN 300 MG SUPP, RECTAL PR SCH (09:49)
[2017-11-28] MEDS: ENOXAPARIN SODIUM INJ 40 MG/0.4 ML DISP.SYRIN SUBCUT SCH (09:49)
--- NOTE | 2017-11-28 16:37 | PDOC PROGRESS REPORT ---
Subjective Progress Note for:: 11/28/17 Subjective:: There is no change in patient's condition Reason For Visit: LEFT CEREBRAL INFARCTION Physical Exam Vital Signs: Temp Pulse Resp BP Pulse Ox 97.5 F 65 24 H 146/63 H 100 11/28/17 15:23 11/28/17 15:23 11/28/17 15:23 11/28/17 15:23 11/28/17 15:23 Intake & Output 11/27/17 11/28/17 11/29/17 06:59 06:59 06:59 Intake Total 270 30 0 Output Total 540 875 400 Balance -270 -845 -400 Weight 81.7 kg 81.8 kg General appearance: PRESENT: other - Patient is unresponsive Respiratory exam: PRESENT: decreased breath sounds Cardiovascular exam: PRESENT: +S1, +S2 Neurological exam: PRESENT: altered Results Laboratory Results: 11/26/17 04:48 11/26/17 04:48 11/14/17 11/14/17 11/14/17 19:50 19:50 19:50 Creatine Kinase 872 H CK-MB (CK-2) Troponin I 0.069 NT-Pro-B Natriuret Pep 5630 H 11/14/17 11/15/17 11/15/17 19:50 02:23 02:23 Creatine Kinase 809 H CK-MB (CK-2) 10.20 H 9.38 H Troponin I NT-Pro-B Natriuret Pep 11/15/17 11/15/17 07:50 07:50 Creatine Kinase 717 H CK-MB (CK-2) 7.67 H Troponin I NT-Pro-B Natriuret Pep Impressions: Head CT 11/14/17 14:16 IMPRESSION: CHRONIC CHANGES OF ATROPHY AND MICROVASCULAR ISCHEMIA. NO ACUTE PROCESS. THESE CHANGES ARE MILDLY PROGRESSED WHEN COMPARED 10/19/2014 EVIDENCE OF ACUTE STROKE: NO. Head MRI 11/15/17 00:00 IMPRESSION: MULTIPLE SMALL FOCI OF RESTRICTED DIFFUSION INVOLVING THE LEFT CEREBRAL HEMISPHERE IN A WATERSHED DISTRIBUTION DETAILED ABOVE. NO LARGE TERRITORY INFARCTION, HEMORRHAGE, OR MASS LESION. EVIDENCE OF ACUTE STROKE: YES. LEFT WATERSHED DISTRIBUTION. Carotid Doppler Study 11/16/17 00:00 IMPRESSION: No flow significant stenosis at the right carotid bifurcation. Patient has recent watershed infarct in the left hemisphere, and very slow flow in the left common carotid artery and internal carotid artery. Findings are worrisome for high-grade stenosis or occlusion high in the left internal carotid artery at the skullbase. Consider CT angio of the neck and [place] for followup Antegrade pulsatile vertebral artery flow bilaterally Head CTA 11/16/17 00:00 IMPRESSION: Occluded left high cervical ICA with clot. Intracranial [place] collaterals as above. No CT angio evidence of right carotid bifurcation disease. Neck CTA 11/16/17 00:00 IMPRESSION: Occluded left high cervical ICA with clot. Intracranial [place] collaterals as above. No CT angio evidence of right carotid bifurcation disease. Chest X-Ray 11/25/17 00:00 IMPRESSION: Left lower lobar pneumonia/atelectasis. KUB X-Ray 11/25/17 13:26 IMPRESSION: NG tube with its tip at the level of the mid stomach. Other findings as noted above. 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: without alf use Diabetes mellitus complication status: with circulatory complication Diabetes mellitus complication detail: with other circulatory complications Qualified Code(s): E11.59 - Type 2 diabetes mellitus with other circulatory complications; E11.65 - Type 2 diabetes mellitus with hyperglycemia ; E11.65 - Type 2 diabetes mellitus with hyperglycemia; E11.65 - Type 2 diabetes mellitus with hyperglycemia; E11.65 - Type 2 diabetes mellitus with hyperglycemia Is this a current diagnosis for this admission?: Yes (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 Qualified Code(s): I65.22 - Occlusion and stenosis of left carotid artery Is this a current diagnosis for this admission?: Yes (5) Internal carotid artery occlusion Qualifiers: Laterality: left Qualified Code(s): I65.22 - Occlusion and stenosis of left carotid artery Is this a current diagnosis for this admission?: Yes (6) Unresponsive Is this a current diagnosis for this admission?: Yes (7) Hypernatremia Is this a current diagnosis for this admission?: Yes (8) Rhabdomyolysis Qualifiers: Rhabdomyolysis type: non-traumatic Qualified Code(s): M62.82 - Rhabdomyolysis Is this a current diagnosis for this admission?: Yes (9) Noncompliance Is this a current diagnosis for this admission?: Yes (10) Hypokalemia Is this a current diagnosis for this admission?: Yes (11) Oliguria Is this a current diagnosis for this admission?: Yes (12) Fever Qualifiers: Fever type: unspecified Qualified Code(s): R50.9 - Fever, unspecified Is this a current diagnosis for this admission?: Yes (13) Nosocomial pneumonia Is this a current diagnosis for this admission?: Yes (14) Dysphagia due to recent cerebral infarction Is this a current diagnosis for this admission?: Yes
[2017-11-28] MEDS: LOSARTAN POTASSIUM 50 MG TABLET PO SCH (17:17)
[2017-11-28] MEDS: AMLODIPINE BESYLATE 5 MG TABLET PO SCH (17:17)
[2017-11-28] MEDS: ERTAPENEM SODIUM 1 GM in NORMAL SALINE 50 ML IV SCH (21:13)
[2017-11-29] MEDS: METOPROLOL TARTRATE 100 MG TABLET PO SCH ×2 (05:39→18:16)
[2017-11-29] MEDS: HYDRALAZINE HCL 50 MG TABLET PO SCH ×3 (05:54→21:57)
[2017-11-29] MEDS: ASPIRIN 300 MG SUPP, RECTAL PR SCH (09:09)
[2017-11-29] MEDS: ENOXAPARIN SODIUM INJ 40 MG/0.4 ML DISP.SYRIN SUBCUT SCH (09:09)
--- NOTE | 2017-11-29 15:33 | PDOC PROGRESS REPORT ---
Subjective Progress Note for:: 11/29/17 Subjective:: Patient is seen by the bedside, family came from [place], they wants patient transfer to [place], she remained poorly responsive, they still want PEG tube placement Reason For Visit: LEFT CEREBRAL INFARCTION Physical Exam Vital Signs: Temp Pulse Resp BP Pulse Ox 97.4 F 56 L 12 146/62 H 99 11/29/17 12:18 11/29/17 12:18 11/29/17 12:18 11/29/17 12:18 11/29/17 12:18 Intake & Output 11/28/17 11/29/17 11/30/17 06:59 06:59 06:59 Intake Total 30 180 120 Output Total 875 500 300 Balance -845 -320 -180 Weight 81.8 kg General appearance: PRESENT: no acute distress Respiratory exam: PRESENT: clear to auscultation barrie Cardiovascular exam: PRESENT: +S1, +S2 Results Laboratory Results: 11/26/17 04:48 11/26/17 04:48 11/14/17 11/14/17 11/14/17 19:50 19:50 19:50 Creatine Kinase 872 H CK-MB (CK-2) Troponin I 0.069 NT-Pro-B Natriuret Pep 5630 H 11/14/17 11/15/17 11/15/17 19:50 02:23 02:23 Creatine Kinase 809 H CK-MB (CK-2) 10.20 H 9.38 H Troponin I NT-Pro-B Natriuret Pep 11/15/17 11/15/17 07:50 07:50 Creatine Kinase 717 H CK-MB (CK-2) 7.67 H Troponin I NT-Pro-B Natriuret Pep Impressions: Head CT 11/14/17 14:16 IMPRESSION: CHRONIC CHANGES OF ATROPHY AND MICROVASCULAR ISCHEMIA. NO ACUTE PROCESS. THESE CHANGES ARE MILDLY PROGRESSED WHEN COMPARED 10/19/2014 EVIDENCE OF ACUTE STROKE: NO. Head MRI 11/15/17 00:00 IMPRESSION: MULTIPLE SMALL FOCI OF RESTRICTED DIFFUSION INVOLVING THE LEFT CEREBRAL HEMISPHERE IN A WATERSHED DISTRIBUTION DETAILED ABOVE. NO LARGE TERRITORY INFARCTION, HEMORRHAGE, OR MASS LESION. EVIDENCE OF ACUTE STROKE: YES. LEFT WATERSHED DISTRIBUTION. Carotid Doppler Study 11/16/17 00:00 IMPRESSION: No flow significant stenosis at the right carotid bifurcation. Patient has recent watershed infarct in the left hemisphere, and very slow flow in the left common carotid artery and internal carotid artery. Findings are worrisome for high-grade stenosis or occlusion high in the left internal carotid artery at the skullbase. Consider CT angio of the neck and [place] for followup Antegrade pulsatile vertebral artery flow bilaterally Head CTA 11/16/17 00:00 IMPRESSION: Occluded left high cervical ICA with clot. Intracranial [place] collaterals as above. No CT angio evidence of right carotid bifurcation disease. Neck CTA 11/16/17 00:00 IMPRESSION: Occluded left high cervical ICA with clot. Intracranial [place] collaterals as above. No CT angio evidence of right carotid bifurcation disease. Chest X-Ray 11/25/17 00:00 IMPRESSION: Left lower lobar pneumonia/atelectasis. KUB X-Ray 11/25/17 13:26 IMPRESSION: NG tube with its tip at the level of the mid stomach. Other findings as noted above. Assessment & Plan - Diagnosis (1) Cerebral infarction, left hemisphere Is this a current diagnosis for this admission?: Yes (2) Hypertension Qualifiers: Hypertension type: essential hypertension Qualified Code(s): I10 - Essential (primary) hypertension Is this a current diagnosis for this admission?: Yes (3) Uncontrolled diabetes mellitus Qualifiers: Diabetes mellitus type: type 2 Diabetes mellitus superintendent terminal insulin use: without usp use Diabetes mellitus complication status: with circulatory complication Diabetes mellitus complication detail: with other circulatory complications Qualified Code(s): E11.59 - Type 2 diabetes mellitus with other circulatory complications; E11.65 - Type 2 diabetes mellitus with hyperglycemia ; E11.65 - Type 2 diabetes mellitus with hyperglycemia; E11.65 - Type 2 diabetes mellitus with hyperglycemia; E11.65 - Type 2 diabetes mellitus with hyperglycemia Is this a current diagnosis for this admission?: Yes (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 Qualified Code(s): I65.22 - Occlusion and stenosis of left carotid artery Is this a current diagnosis for this admission?: Yes (5) Internal carotid artery occlusion Qualifiers: Laterality: left Qualified Code(s): I65.22 - Occlusion and stenosis of left carotid artery Is this a current diagnosis for this admission?: Yes (6) Unresponsive Is this a current diagnosis for this admission?: Yes (7) Hypernatremia Is this a current diagnosis for this admission?: Yes (8) Rhabdomyolysis Qualifiers: Rhabdomyolysis type: non-traumatic Qualified Code(s): M62.82 - Rhabdomyolysis Is this a current diagnosis for this admission?: Yes (9) Noncompliance Is this a current diagnosis for this admission?: Yes (10) Hypokalemia Is this a current diagnosis for this admission?: Yes (11) Oliguria Is this a current diagnosis for this admission?: Yes (12) Fever Qualifiers: Fever type: unspecified Qualified Code(s): R50.9 - Fever, unspecified Is this a current diagnosis for this admission?: Yes (13) Nosocomial pneumonia Is this a current diagnosis for this admission?: Yes (14) Dysphagia due to recent cerebral infarction Is this a current diagnosis for this admission?: Yes - Plan Summary Plan Summary: Surgical consultation for PEG tube placement, social media marketing specialist consultation to arrange for transfer
[2017-11-29] MEDS: LOSARTAN POTASSIUM 50 MG TABLET PO SCH (18:16)
[2017-11-29] MEDS: AMLODIPINE BESYLATE 5 MG TABLET PO SCH (18:16)
[2017-11-29] MEDS: HYDRALAZINE HCL INJ/PF 20 MG/1 ML SDV IV PRN (20:28)
[2017-11-29] MEDS: ERTAPENEM SODIUM 1 GM in NORMAL SALINE 50 ML IV SCH (21:57)
[2017-11-30] MEDS: HYDRALAZINE HCL INJ/PF 20 MG/1 ML SDV IV PRN ×2 (03:33→08:50)
[2017-11-30] MEDS: HYDRALAZINE HCL 50 MG TABLET PO SCH ×3 (05:16→22:01)
[2017-11-30] MEDS: METOPROLOL TARTRATE 100 MG TABLET PO SCH ×2 (05:16→17:34)
[2017-11-30] MEDS: ASPIRIN 300 MG SUPP, RECTAL PR SCH (09:46)
[2017-11-30] MEDS: ENOXAPARIN SODIUM INJ 40 MG/0.4 ML DISP.SYRIN SUBCUT SCH (09:46)
[2017-11-30] MEDS: LOSARTAN POTASSIUM 50 MG TABLET PO SCH (17:34)
[2017-11-30] MEDS: AMLODIPINE BESYLATE 5 MG TABLET PO SCH (17:34)
--- NOTE | 2017-11-30 20:41 | PDOC PROGRESS REPORT ---
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 I explained to them that she is no longer is acute CVA at this stage she need transfer to a group home for continuity of care Reason For Visit: LEFT CEREBRAL INFARCTION Physical Exam Vital Signs: Temp Pulse Resp BP Pulse Ox 97.4 F 47 L 12 115/55 L 100 11/30/17 11:18 11/30/17 19:34 11/30/17 19:34 11/30/17 19:34 11/30/17 19:34 Intake & Output 11/29/17 11/30/17 12/01/17 06:59 06:59 06:59 Intake Total 180 335 30 Output Total 500 500 525 Balance -320 -165 -495 Weight 79.8 kg General appearance: PRESENT: other - Poorly responsive Respiratory exam: PRESENT: clear to auscultation barrie Cardiovascular exam: PRESENT: +S1, +S2 Neurological exam: PRESENT: altered Results Laboratory Results: 11/26/17 04:48 11/26/17 04:48 11/24/17 20:35 Blood Blood Culture - Final NO GROWTH IN 5 DAYS 11/24/17 20:55 Blood Blood Culture - Final NO GROWTH IN 5 DAYS 11/14/17 11/14/17 11/14/17 19:50 19:50 19:50 Creatine Kinase 872 H CK-MB (CK-2) Troponin I 0.069 NT-Pro-B Natriuret Pep 5630 H 11/14/17 11/15/17 11/15/17 19:50 02:23 02:23 Creatine Kinase 809 H CK-MB (CK-2) 10.20 H 9.38 H Troponin I NT-Pro-B Natriuret Pep 11/15/17 11/15/17 07:50 07:50 Creatine Kinase 717 H CK-MB (CK-2) 7.67 H Troponin I NT-Pro-B Natriuret Pep Impressions: Head CT 11/14/17 14:16 IMPRESSION: CHRONIC CHANGES OF ATROPHY AND MICROVASCULAR ISCHEMIA. NO ACUTE PROCESS. THESE CHANGES ARE MILDLY PROGRESSED WHEN COMPARED 10/19/2014 EVIDENCE OF ACUTE STROKE: NO. Head MRI 11/15/17 00:00 IMPRESSION: MULTIPLE SMALL FOCI OF RESTRICTED DIFFUSION INVOLVING THE LEFT CEREBRAL HEMISPHERE IN A WATERSHED DISTRIBUTION DETAILED ABOVE. NO LARGE TERRITORY INFARCTION, HEMORRHAGE, OR MASS LESION. EVIDENCE OF ACUTE STROKE: YES. LEFT WATERSHED DISTRIBUTION. Carotid Doppler Study 11/16/17 00:00 IMPRESSION: No flow significant stenosis at the right carotid bifurcation. Patient has recent watershed infarct in the left hemisphere, and very slow flow in the left common carotid artery and internal carotid artery. Findings are worrisome for high-grade stenosis or occlusion high in the left internal carotid artery at the skullbase. Consider CT angio of the neck and [place] for followup Antegrade pulsatile vertebral artery flow bilaterally Head CTA 11/16/17 00:00 IMPRESSION: Occluded left high cervical ICA with clot. Intracranial [place] collaterals as above. No CT angio evidence of right carotid bifurcation disease. Neck CTA 11/16/17 00:00 IMPRESSION: Occluded left high cervical ICA with clot. Intracranial [place] collaterals as above. No CT angio evidence of right carotid bifurcation disease. Chest X-Ray 11/25/17 00:00 IMPRESSION: Left lower lobar pneumonia/atelectasis. KUB X-Ray 11/25/17 13:26 IMPRESSION: NG tube with its tip at the level of the mid stomach. Other findings as noted above. 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 Diabetes mellitus complication status: with circulatory complication Diabetes mellitus complication detail: with other circulatory complications Qualified Code(s): E11.59 - Type 2 diabetes mellitus with other circulatory complications; E11.65 - Type 2 diabetes mellitus with hyperglycemia ; E11.65 - Type 2 diabetes mellitus with hyperglycemia; E11.65 - Type 2 diabetes mellitus with hyperglycemia; E11.65 - Type 2 diabetes mellitus with hyperglycemia Is this a current diagnosis for this admission?: Yes (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 Qualified Code(s): I65.22 - Occlusion and stenosis of left carotid artery Is this a current diagnosis for this admission?: Yes (5) Internal carotid artery occlusion Qualifiers: Laterality: left Qualified Code(s): I65.22 - Occlusion and stenosis of left carotid artery Is this a current diagnosis for this admission?: Yes (6) Unresponsive Is this a current diagnosis for this admission?: Yes (7) Hypernatremia Is this a current diagnosis for this admission?: Yes (8) Rhabdomyolysis Qualifiers: Rhabdomyolysis type: non-traumatic Qualified Code(s): M62.82 - Rhabdomyolysis Is this a current diagnosis for this admission?: Yes (9) Noncompliance Is this a current diagnosis for this admission?: Yes (10) Hypokalemia Is this a current diagnosis for this admission?: Yes (11) Oliguria Is this a current diagnosis for this admission?: Yes (12) Fever Qualifiers: Fever type: unspecified Qualified Code(s): R50.9 - Fever, unspecified Is this a current diagnosis for this admission?: Yes (13) Nosocomial pneumonia Is this a current diagnosis for this admission?: Yes (14) Dysphagia due to recent cerebral infarction Is this a current diagnosis for this admission?: Yes
[2017-11-30] MEDS: ERTAPENEM SODIUM 1 GM in NORMAL SALINE 50 ML IV SCH (22:01)
[2017-12-01] MEDS: HYDRALAZINE HCL 50 MG TABLET PO SCH ×3 (06:09→21:04)
[2017-12-01] MEDS: METOPROLOL TARTRATE 100 MG TABLET PO SCH ×2 (06:09→18:31)
[2017-12-01] MEDS: ENOXAPARIN SODIUM INJ 40 MG/0.4 ML DISP.SYRIN SUBCUT SCH (10:10)
[2017-12-01] MEDS: ASPIRIN 300 MG SUPP, RECTAL PR SCH (10:10)
[2017-12-01] MEDS ORDERED: ATROPINE SULFATE 1% OPH SOLN 5 ML BOTTLE SL PRN (13:51)
[2017-12-01] MEDS ORDERED: SCOPOLAMINE HYDROBROMIDE 1.5 MG PATCH.TD72 TD ONE (15:00)
[2017-12-01] MEDS: LOSARTAN POTASSIUM 50 MG TABLET PO SCH (18:31)
[2017-12-01] MEDS: AMLODIPINE BESYLATE 5 MG TABLET PO SCH (18:31)
[2017-12-01] MEDS: ERTAPENEM SODIUM 1 GM in NORMAL SALINE 50 ML IV SCH (21:04)
--- NOTE | 2017-12-01 21:29 | PDOC PROGRESS REPORT ---
Subjective Progress Note for:: 12/01/17 Subjective:: Patient's condition remains poor, there is no purposeful eye movement, she has severe upper airway secretions. Disposition is still challenging, discharge planning could not arrange for a mcc in [place] because family is yet to advise any specific mcc they might prefer in [place] area family was mistaken that she needed to be transferred to another hospital but at this stage of her disease there is no indication for an acute care transfer , she needed to be transferred to a fdc home preferably hospice nursing place. Patient is nonverbal she has massive stroke with paralysis, she could not tolerate tube feeds. Attempted to feed through NG tube, but she has large residual , tube feed was discontiued Reason For Visit: LEFT CEREBRAL INFARCTION Physical Exam Vital Signs: Temp Pulse Resp BP Pulse Ox 98.4 F 75 18 145/71 H 99 12/01/17 19:32 12/01/17 19:32 12/01/17 19:32 12/01/17 19:32 12/01/17 19:32 Intake & Output 11/30/17 12/01/17 12/02/17 06:59 06:59 06:59 Intake Total 335 205 100 Output Total 500 625 275 Balance -165 -420 -175 Weight 79.8 kg 84.8 kg General appearance: PRESENT: other - Unresponsive Respiratory exam: PRESENT: rhonchi Cardiovascular exam: PRESENT: +S1, +S2 Results Laboratory Results: 11/26/17 04:48 11/26/17 04:48 11/14/17 11/14/17 11/14/17 19:50 19:50 19:50 Creatine Kinase 872 H CK-MB (CK-2) Troponin I 0.069 NT-Pro-B Natriuret Pep 5630 H 11/14/17 11/15/17 11/15/17 19:50 02:23 02:23 Creatine Kinase 809 H CK-MB (CK-2) 10.20 H 9.38 H Troponin I NT-Pro-B Natriuret Pep 11/15/17 11/15/17 07:50 07:50 Creatine Kinase 717 H CK-MB (CK-2) 7.67 H Troponin I NT-Pro-B Natriuret Pep Impressions: Head CT 11/14/17 14:16 IMPRESSION: CHRONIC CHANGES OF ATROPHY AND MICROVASCULAR ISCHEMIA. NO ACUTE PROCESS. THESE CHANGES ARE MILDLY PROGRESSED WHEN COMPARED 10/19/2014 EVIDENCE OF ACUTE STROKE: NO. Head MRI 11/15/17 00:00 IMPRESSION: MULTIPLE SMALL FOCI OF RESTRICTED DIFFUSION INVOLVING THE LEFT CEREBRAL HEMISPHERE IN A WATERSHED DISTRIBUTION DETAILED ABOVE. NO LARGE TERRITORY INFARCTION, HEMORRHAGE, OR MASS LESION. EVIDENCE OF ACUTE STROKE: YES. LEFT WATERSHED DISTRIBUTION. Carotid Doppler Study 11/16/17 00:00 IMPRESSION: No flow significant stenosis at the right carotid bifurcation. Patient has recent watershed infarct in the left hemisphere, and very slow flow in the left common carotid artery and internal carotid artery. Findings are worrisome for high-grade stenosis or occlusion high in the left internal carotid artery at the skullbase. Consider CT angio of the neck and [place] for followup Antegrade pulsatile vertebral artery flow bilaterally Head CTA 11/16/17 00:00 IMPRESSION: Occluded left high cervical ICA with clot. Intracranial [place] collaterals as above. No CT angio evidence of right carotid bifurcation disease. Neck CTA 11/16/17 00:00 IMPRESSION: Occluded left high cervical ICA with clot. Intracranial [place] collaterals as above. No CT angio evidence of right carotid bifurcation disease. Chest X-Ray 11/25/17 00:00 IMPRESSION: Left lower lobar pneumonia/atelectasis. KUB X-Ray 11/25/17 13:26 IMPRESSION: NG tube with its tip at the level of the mid stomach. Other findings as noted above. Assessment & Plan - Diagnosis (1) Cerebral infarction, left hemisphere Is this a current diagnosis for this admission?: Yes (2) Hypertension Qualifiers: Hypertension type: essential hypertension Qualified Code(s): I10 - Essential (primary) hypertension Is this a current diagnosis for this admission?: Yes (3) Uncontrolled diabetes mellitus Qualifiers: Diabetes mellitus type: type 2 Diabetes mellitus long term care administrator insulin use: without long term care administrator use Diabetes mellitus complication status: with circulatory complication Diabetes mellitus complication detail: with other circulatory complications Qualified Code(s): E11.59 - Type 2 diabetes mellitus with other circulatory complications; E11.65 - Type 2 diabetes mellitus with hyperglycemia ; E11.65 - Type 2 diabetes mellitus with hyperglycemia; E11.65 - Type 2 diabetes mellitus with hyperglycemia; E11.65 - Type 2 diabetes mellitus with hyperglycemia Is this a current diagnosis for this admission?: Yes (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 Qualified Code(s): I65.22 - Occlusion and stenosis of left carotid artery Is this a current diagnosis for this admission?: Yes (5) Internal carotid artery occlusion Qualifiers: Laterality: left Qualified Code(s): I65.22 - Occlusion and stenosis of left carotid artery Is this a current diagnosis for this admission?: Yes (6) Unresponsive Is this a current diagnosis for this admission?: Yes (7) Hypernatremia Is this a current diagnosis for this admission?: Yes (8) Rhabdomyolysis Qualifiers: Rhabdomyolysis type: non-traumatic Qualified Code(s): M62.82 - Rhabdomyolysis Is this a current diagnosis for this admission?: Yes (9) Noncompliance Is this a current diagnosis for this admission?: Yes (10) Hypokalemia Is this a current diagnosis for this admission?: Yes (11) Oliguria Is this a current diagnosis for this admission?: Yes (12) Fever Qualifiers: Fever type: unspecified Qualified Code(s): R50.9 - Fever, unspecified Is this a current diagnosis for this admission?: Yes (13) Nosocomial pneumonia Is this a current diagnosis for this admission?: Yes (14) Dysphagia due to recent cerebral infarction Is this a current diagnosis for this admission?: Yes
[2017-12-01 21:43] LABS: ABSOLUTE BASOPHILS # (AUTO) 0.1 10^3/uL (0.0-0.2); ABSOLUTE LYMPHOCYTES (AUTO) 1.4 10^3/uL (0.5-4.7); ABSOLUTE MONOCYTES (AUTO) 0.8 10^3/uL (0.1-1.4); ABSOLUTE NEUT (AUTO) 8.5 10^3/uL (1.7-8.2); BASOPHILS % (AUTO) 0.7 % (0-2); HEMATOCRIT 31.7 % (36.0-47.0); HEMOGLOBIN 10.6 g/dL (12.0-15.5); LYMPHOCYTES % (AUTO) 12.6 % (13-45); MEAN CORPUSCULAR HEMOGLOBIN 25.5 pg (27.0-33.4); MEAN CORPUSCULAR HGB CONC 33.4 g/dL (32.0-36.0); MEAN CORPUSCULAR VOLUME 76 fl (80-97); MONOCYTES % (AUTO) 7.8 % (3-13); PLATELET COUNT 282 10^3/uL (150-450); RED BLOOD COUNT 4.16 10^6/uL (3.72-5.28); RED CELL DISTRIBUTION WIDTH 15.2 % (11.5-14.0); SEGMENTED NEUTROPHILS % (AUTO) 78.9 % (42-78); TOTAL CELLS COUNTED % (AUTO) 100 %; WHITE BLOOD COUNT 10.7 10^3/uL (4.0-10.5)
[2017-12-01 22:06] LABS: ALANINE AMINOTRANSFERASE 33 U/L (9-52); ALBUMIN 2.4 g/dL (3.5-5.0); ALKALINE PHOSPHATASE 84 U/L (38-126); ANION GAP 9 (5-19); ASPARTATE AMINO TRANSFERASE 32 U/L (14-36); BILIRUBIN,DIRECT 0.2 mg/dL (0.0-0.4); BILIRUBIN,TOTAL 0.2 mg/dL (0.2-1.3); BLOOD UREA NITROGEN 28 mg/dL (7-20); CALCIUM 8.8 mg/dL (8.4-10.2); CARBON DIOXIDE 23 mmol/L (22-30); CHLORIDE 108 mmol/L (98-107); GLUCOSE 160 mg/dL (75-110); POTASSIUM 4.3 mmol/L (3.6-5.0); SODIUM 139.5 mmol/L (137-145); TOTAL PROTEIN 4.8 g/dL (6.3-8.2)
[2017-12-02] MEDS: METOPROLOL TARTRATE 100 MG TABLET PO SCH ×2 (05:28→17:23)
[2017-12-02] MEDS: HYDRALAZINE HCL 50 MG TABLET PO SCH ×3 (05:28→21:12)
[2017-12-02] MEDS: ASPIRIN 300 MG SUPP, RECTAL PR SCH (10:33)
[2017-12-02] MEDS: ENOXAPARIN SODIUM INJ 40 MG/0.4 ML DISP.SYRIN SUBCUT SCH (10:38)
[2017-12-02] MEDS: AMLODIPINE BESYLATE 5 MG TABLET PO SCH (18:47)
[2017-12-02] MEDS: LOSARTAN POTASSIUM 50 MG TABLET PO SCH (18:47)
--- NOTE | 2017-12-02 20:10 | PDOC PROGRESS REPORT ---
Subjective Progress Note for:: 12/02/17 Subjective:: Patient was seen by the bedside, discharge planning making arrangement for transfer Reason For Visit: LEFT CEREBRAL INFARCTION Physical Exam Vital Signs: Temp Pulse Resp BP Pulse Ox 97.3 F 63 18 151/69 H 96 12/02/17 19:52 12/02/17 19:52 12/02/17 19:52 12/02/17 19:52 12/02/17 19:52 Intake & Output 12/01/17 12/02/17 12/03/17 06:59 06:59 06:59 Intake Total 205 285 40 Output Total 625 475 450 Balance -420 -190 -410 Weight 84.8 kg 78.5 kg General appearance: PRESENT: no acute distress Head exam: PRESENT: atraumatic, normocephalic Eye exam: PRESENT: PERRLA Ear exam: PRESENT: normal external ear exam Mouth exam: PRESENT: moist, tongue midline Neck exam: PRESENT: full ROM Respiratory exam: PRESENT: clear to auscultation barrie Cardiovascular exam: PRESENT: RRR, +S1, +S2 Vascular exam: PRESENT: normal capillary refill GI/Abdominal exam: PRESENT: normal bowel sounds, soft Neurological exam: ABSENT: motor sensory deficit Psychiatric exam: ABSENT: homicidal ideation, suicidal ideation Results Laboratory Results: 12/01/17 21:37 12/01/17 21:37 12/01/17 12/01/17 21:37 21:37 WBC 10.7 H RBC 4.16 Hgb 10.6 L Hct 31.7 L MCV 76 L MCH 25.5 L MCHC 33.4 RDW 15.2 H Plt Count 282 Seg Neutrophils % 78.9 H Lymphocytes % 12.6 L Monocytes % 7.8 Eosinophils % 0.0 Basophils % 0.7 Absolute Neutrophils 8.5 H Absolute Lymphocytes 1.4 Absolute Monocytes 0.8 Absolute Eosinophils 0.0 Absolute Basophils 0.1 Sodium 139.5 Potassium 4.3 Chloride 108 H Carbon Dioxide 23 Anion Gap 9 BUN 28 H Creatinine 1.30 H Est GFR ( Amer) 50 L Est GFR (Non-Af Amer) 41 L Glucose 160 H Calcium 8.8 Total Bilirubin 0.2 AST 32 ALT 33 Alkaline Phosphatase 84 Total Protein 4.8 L Albumin 2.4 L 11/14/17 11/14/17 11/14/17 19:50 19:50 19:50 Creatine Kinase 872 H CK-MB (CK-2) Troponin I 0.069 NT-Pro-B Natriuret Pep 5630 H 11/14/17 11/15/17 11/15/17 19:50 02:23 02:23 Creatine Kinase 809 H CK-MB (CK-2) 10.20 H 9.38 H Troponin I NT-Pro-B Natriuret Pep 11/15/17 11/15/17 07:50 07:50 Creatine Kinase 717 H CK-MB (CK-2) 7.67 H Troponin I NT-Pro-B Natriuret Pep Impressions: Head CT 11/14/17 14:16 IMPRESSION: CHRONIC CHANGES OF ATROPHY AND MICROVASCULAR ISCHEMIA. NO ACUTE PROCESS. THESE CHANGES ARE MILDLY PROGRESSED WHEN COMPARED 10/19/2014 EVIDENCE OF ACUTE STROKE: NO. Head MRI 11/15/17 00:00 IMPRESSION: MULTIPLE SMALL FOCI OF RESTRICTED DIFFUSION INVOLVING THE LEFT CEREBRAL HEMISPHERE IN A WATERSHED DISTRIBUTION DETAILED ABOVE. NO LARGE TERRITORY INFARCTION, HEMORRHAGE, OR MASS LESION. EVIDENCE OF ACUTE STROKE: YES. LEFT WATERSHED DISTRIBUTION. Carotid Doppler Study 11/16/17 00:00 IMPRESSION: No flow significant stenosis at the right carotid bifurcation. Patient has recent watershed infarct in the left hemisphere, and very slow flow in the left common carotid artery and internal carotid artery. Findings are worrisome for high-grade stenosis or occlusion high in the left internal carotid artery at the skullbase. Consider CT angio of the neck and [place] for followup Antegrade pulsatile vertebral artery flow bilaterally Head CTA 11/16/17 00:00 IMPRESSION: Occluded left high cervical ICA with clot. Intracranial [place] collaterals as above. No CT angio evidence of right carotid bifurcation disease. Neck CTA 11/16/17 00:00 IMPRESSION: Occluded left high cervical ICA with clot. Intracranial [place] collaterals as above. No CT angio evidence of right carotid bifurcation disease. Chest X-Ray 11/25/17 00:00 IMPRESSION: Left lower lobar pneumonia/atelectasis. KUB X-Ray 11/25/17 13:26 IMPRESSION: NG tube with its tip at the level of the mid stomach. Other findings as noted above. Assessment & Plan - Diagnosis (1) Cerebral infarction, left hemisphere Is this a current diagnosis for this admission?: Yes (2) Hypertension Qualifiers: Hypertension type: essential hypertension Qualified Code(s): I10 - Essential (primary) hypertension Is this a current diagnosis for this admission?: Yes (3) Uncontrolled diabetes mellitus Qualifiers: Diabetes mellitus type: type 2 Diabetes mellitus snf insulin use: without snf use Diabetes mellitus complication status: with circulatory complication Diabetes mellitus complication detail: with other circulatory complications Qualified Code(s): E11.59 - Type 2 diabetes mellitus with other circulatory complications; E11.65 - Type 2 diabetes mellitus with hyperglycemia ; E11.65 - Type 2 diabetes mellitus with hyperglycemia; E11.65 - Type 2 diabetes mellitus with hyperglycemia; E11.65 - Type 2 diabetes mellitus with hyperglycemia Is this a current diagnosis for this admission?: Yes (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 Qualified Code(s): I65.22 - Occlusion and stenosis of left carotid artery Is this a current diagnosis for this admission?: Yes (5) Internal carotid artery occlusion Qualifiers: Laterality: left Qualified Code(s): I65.22 - Occlusion and stenosis of left carotid artery Is this a current diagnosis for this admission?: Yes (6) Unresponsive Is this a current diagnosis for this admission?: Yes (7) Hypernatremia Is this a current diagnosis for this admission?: Yes (8) Rhabdomyolysis Qualifiers: Rhabdomyolysis type: non-traumatic Qualified Code(s): M62.82 - Rhabdomyolysis Is this a current diagnosis for this admission?: Yes (9) Noncompliance Is this a current diagnosis for this admission?: Yes (10) Hypokalemia Is this a current diagnosis for this admission?: Yes (11) Oliguria Is this a current diagnosis for this admission?: Yes (12) Fever Qualifiers: Fever type: unspecified Qualified Code(s): R50.9 - Fever, unspecified Is this a current diagnosis for this admission?: Yes (13) Nosocomial pneumonia Is this a current diagnosis for this admission?: Yes (14) Dysphagia due to recent cerebral infarction Is this a current diagnosis for this admission?: Yes
[2017-12-02] MEDS: ERTAPENEM SODIUM 1 GM in NORMAL SALINE 50 ML IV SCH (21:12)
[2017-12-03] MEDS: METOPROLOL TARTRATE 100 MG TABLET PO SCH ×2 (05:52→17:36)
[2017-12-03] MEDS: HYDRALAZINE HCL 50 MG TABLET PO SCH ×3 (05:52→21:58)
--- NOTE | 2017-12-03 08:42 | EEG PRO FEE REPORT ---
EEG INTERPRETATION PATIENT NAME: DOMO BUCHANAN ROOM#: 314 ORDER#: [id number] DATE OF STUDY: 11/19/2017 : 1955 REFERRING MD: WANDA THOMAS M.D. DIAGNOSIS: CVA REPORT Photic stimulation and early sleep show no abnormality in the background it is mostly is about 6-7 Hz slow theta with a lot of superimposed motion artifact. No clear other further focal slowing or amplitude asymmetry is noted. FINAL IMPRESSION: Slightly slow EEG but no clear focal slowing it appears to be generalized such as one might see with a toxic or metabolic or other generalized cause of cerebral dysfunction. There is also excessive motion artifact obscuring parts of the background. INTERPRETING PHYSICIAN: JERRY QUINTERO M.D. /: MTEFFT TT: [id number] ID: [id number] /: [id number] TD: [id number] JOB: [id number] cc:Renato SCHRADER M.D. > MTDPatrick
[2017-12-03] MEDS: ENOXAPARIN SODIUM INJ 40 MG/0.4 ML DISP.SYRIN SUBCUT SCH (09:27)
[2017-12-03] MEDS: ASPIRIN 300 MG SUPP, RECTAL PR SCH (09:28)
[2017-12-03] MEDS: LOSARTAN POTASSIUM 50 MG TABLET PO SCH (17:36)
[2017-12-03] MEDS: AMLODIPINE BESYLATE 5 MG TABLET PO SCH (17:39)
[2017-12-03] MEDS ORDERED: FLUMAZENIL INJ 0.5 MG/5 ML VIAL ONE (19:17)
[2017-12-03] MEDS ORDERED: EPINEPHRINE INJ 1 MG/10 ML DISP.SYRIN ONE (19:17)
[2017-12-03] MEDS ORDERED: MIDAZOLAM 2 MG/2 ML INJ ONE (19:17)
[2017-12-03] MEDS ORDERED: NALOXONE HCL INJ/PF 0.4 MG/1 ML SDV ONE (19:17)
[2017-12-03] MEDS ORDERED: FENTANYL CITRATE INJ/PF 100 MCG/2 ML AMPUL ONE (19:17)
[2017-12-03] MEDS ORDERED: GLUCAGON,HUMAN RECOMB 1 MG INJ ONE (19:18)
--- NOTE | 2017-12-03 20:37 | PDOC CONSULTATION ---
Consultation Consult Date: 12/03/17 History of Present Illness Admission Date/PCP: 11/14/17 19:13 WANDA THOMAS MD History of Present Illness: DOMO BUCHANAN is a 62 year old female patient admitted on 11/14/2017 with a massive stroke with left cerebral infarction. Patient has not had significant mental response since the stroke. Consultation was requested by Dr. Thomas for PEG tube placement. Attempts have been made over the last 3 weeks to get a PEG tube placed. There has been problems with high blood pressure and her general medical state preventing the PEG tube placement. She was evaluated by the surgeon and Dr. Rubio. She has an NG tube in place but has not been tolerating NG feeding as well. She has been on just IV fluids for the last 7- 10 days. She is receiving her medications through the tube. She cannot be discharged to a [facility] without a PEG tube placement. Currently she is clinically stable with controlled blood pressure on multiple medications, O2 saturation of 100% on room air with no fever. She is on an antibiotic. The need for a PEG tube was discussed with the patient's 2 brothers who are both in agreement. Of note is her hemoglobin that has been gradually going down from 13 on 11/22/2017 to 10.6 on 12/01/2017. Past Medical History Cardiac Medical History: Reports: Hyperlipidema, Hypertension Neurological Medical History: Denies: Seizures Endocrine Medical History: Reports: Diabetes Mellitus Type 2 Past Surgical History Past Surgical History: Denies: Hysterectomy Social History Smoking Status: Unknown if Ever Smoked Frequency of Alcohol Use: Occasional Hx Recreational Drug Use: No Hx Prescription Drug Abuse: No - Advance Directive Resuscitation Status: Full Code Family History Family History: Reviewed & Not Pertinent Parental Family History Reviewed: No Children Family History Reviewed: NA Sibling(s) Family History Reviewed.: NA Medication/Allergy Home Medications: Glipizide [Glocotrol 5 Mg Tablet] 5 mg PO DAILY MDD LAST FILLED 02-06-18 11/25/17 Lisinopril [Prinivil 40 mg Tablet] 40 mg PO DAILY MDD LAST FILLED 02-06-18 Nifedipine [Nifedipine ER] 90 mg PO DAILY MDD LAST FILLED 02-06-18 11/25/17 Allergies/Adverse Reactions: No Known Allergies Allergy (Unverified 10/19/14 18:46) Review of Systems ROS unobtainable: Due to mental status Physical Exam Vital Signs: Temp Pulse Resp BP Pulse Ox 97.5 F 58 L 19 154/59 H 98 12/03/17 16:09 12/03/17 20:30 12/03/17 20:30 12/03/17 20:30 12/03/17 20:30 Intake & Output 12/02/17 12/03/17 12/04/17 06:59 06:59 06:59 Intake Total 285 305 200 Output Total 475 575 250 Balance -190 -270 -50 Weight 78.5 kg Exam: General: Patient is alert and sometimes blinking her eyes. She does not respond to any questions. HEENT: There is some pallor but no jaundice. PERRLA. Oropharynx normal Respiratory: No chest deformity. No respiratory distress. Chest wall palpitation was unremarkable. Breath sounds were normal Cardiovascular: Heart sounds 1 and 2 normal with no murmurs. Abdominal: Not distended. Soft and nontender. Liver and spleen not palpable. No ascites demonstrated. Bowel sounds active. Rectal examination was deferred. Extremities: Some pedal edema Neurological: She is not able to move all her extremities Results Laboratory Results: 12/01/17 21:37 12/01/17 21:37 11/14/17 11/14/17 11/14/17 19:50 19:50 19:50 Creatine Kinase 872 H CK-MB (CK-2) Troponin I 0.069 NT-Pro-B Natriuret Pep 5630 H 11/14/17 11/15/17 11/15/17 19:50 02:23 02:23 Creatine Kinase 809 H CK-MB (CK-2) 10.20 H 9.38 H Troponin I NT-Pro-B Natriuret Pep 11/15/17 11/15/17 07:50 07:50 Creatine Kinase 717 H CK-MB (CK-2) 7.67 H Troponin I NT-Pro-B Natriuret Pep Impressions: Head CT 11/14/17 14:16 IMPRESSION: CHRONIC CHANGES OF ATROPHY AND MICROVASCULAR ISCHEMIA. NO ACUTE PROCESS. THESE CHANGES ARE MILDLY PROGRESSED WHEN COMPARED 10/19/2014 EVIDENCE OF ACUTE STROKE: NO. Head MRI 11/15/17 00:00 IMPRESSION: MULTIPLE SMALL FOCI OF RESTRICTED DIFFUSION INVOLVING THE LEFT CEREBRAL HEMISPHERE IN A WATERSHED DISTRIBUTION DETAILED ABOVE. NO LARGE TERRITORY INFARCTION, HEMORRHAGE, OR MASS LESION. EVIDENCE OF ACUTE STROKE: YES. LEFT WATERSHED DISTRIBUTION. Carotid Doppler Study 11/16/17 00:00 IMPRESSION: No flow significant stenosis at the right carotid bifurcation. Patient has recent watershed infarct in the left hemisphere, and very slow flow in the left common carotid artery and internal carotid artery. Findings are worrisome for high-grade stenosis or occlusion high in the left internal carotid artery at the skullbase. Consider CT angio of the neck and [place] for followup Antegrade pulsatile vertebral artery flow bilaterally Head CTA 11/16/17 00:00 IMPRESSION: Occluded left high cervical ICA with clot. Intracranial [place] collaterals as above. No CT angio evidence of right carotid bifurcation disease. Neck CTA 11/16/17 00:00 IMPRESSION: Occluded left high cervical ICA with clot. Intracranial [place] collaterals as above. No CT angio evidence of right carotid bifurcation disease. Chest X-Ray 11/25/17 00:00 IMPRESSION: Left lower lobar pneumonia/atelectasis. KUB X-Ray 11/25/17 13:26 IMPRESSION: NG tube with its tip at the level of the mid stomach. Other findings as noted above. Assessment & Plan - Diagnosis (1) Feeding difficulty Is this a current diagnosis for this admission?: Yes Plan: Patient is not able to eat by mouth and has not been tolerating NG feeding as well. The need for a PEG tube was explained to the patient's family and they are in agreement. (2) Dysphagia due to recent cerebral infarction Is this a current diagnosis for this admission?: Yes (3) Anemia Qualifiers: Anemia type: unspecified type Qualified Code(s): D64.9 - Anemia, unspecified Is this a current diagnosis for this admission?: Yes
--- NOTE | 2017-12-03 20:42 | Operative Report ---
Operative Report DATE OF SURGERY: 12/03/17 Operative Report: Pre-op diagnosis: Feeding difficulty Post-op diagnosis: 1. Grade D esophagitis 2. Duodenal ulcers. 3. Antral gastritis Surgery: Esophagogastroduodenoscopy with epinephrine injection, biopsy, and PEG tube placement Medications: Versed 2mg Tissue removed: Antral biopsy for pathology Procedure: After informed consent obtained from patient, the throat was sprayed with [place] and conscious sedation was achieved. The upper endoscope was inserted into the esophagus under direct vision and advanced into the stomach. The duodenum was entered and examined to the second part. Endoscope was then slowly pulled out of the patient as the mucosa was examined into details. Patient tolerated procedure well. Findings Esophagus: There is circumferential erosive esophagitis at the GE junction Antrum: Mild erythema Body: A 20 [place] G-tube was placed without any difficulty Fundus: Normal Duodenum first part: 12 mm ulcer with clean yellowish greenish base Duodenum second part: 6 mm ulcer with active oozing of blood. There was a very firm structure sticking out of the ulcer which did not have the typical appearance of a visible vessel. The base of the ulcer and the surrounding tissue was then injected with epinephrine. There was no bleeding at the end of the procedure Plan: Await pathology. Start Protonix IV every 12 and comments G-tube feeding tomorrow OPERATION: .
--- NOTE | 2017-12-03 21:12 | PDOC PROGRESS REPORT ---
Subjective Progress Note for:: 12/03/17 Subjective:: I consulted with Dr. Martinez today for PEG tube placement, he was kind enough to accept to place the PEG tube, the PEG tube was inserted today, was found to have duodenal ulcer, antral gastritis and esophagitis. I again explained to the patient that she needed to be transfer to a long term home for continuity of care she does not want to be transferred to an acute care hospital at this point. The discharge planning again left a phone number for me to call acute care hospital I again explained that there is no indication for acute care at this point patient has been admitted for about 2 weeks in this hospital her condition has not change, she remained unresponsive, the pupil is dilated, she has un purposeful eye movements Reason For Visit: LEFT CEREBRAL INFARCTION Physical Exam Vital Signs: Temp Pulse Resp BP Pulse Ox 97.5 F 57 L 18 144/58 H 98 12/03/17 16:09 12/03/17 20:40 12/03/17 20:40 12/03/17 20:40 12/03/17 20:40 Intake & Output 12/02/17 12/03/17 12/04/17 06:59 06:59 06:59 Intake Total 285 305 200 Output Total 475 575 250 Balance -190 -270 -50 Weight 78.5 kg Eye exam: PRESENT: other - dilated pupil Respiratory exam: PRESENT: decreased breath sounds Cardiovascular exam: PRESENT: +S1, +S2 GI/Abdominal exam: PRESENT: soft Neurological exam: PRESENT: altered Results Laboratory Results: 12/01/17 21:37 12/01/17 21:37 11/14/17 11/14/17 11/14/17 19:50 19:50 19:50 Creatine Kinase 872 H CK-MB (CK-2) Troponin I 0.069 NT-Pro-B Natriuret Pep 5630 H 11/14/17 11/15/17 11/15/17 19:50 02:23 02:23 Creatine Kinase 809 H CK-MB (CK-2) 10.20 H 9.38 H Troponin I NT-Pro-B Natriuret Pep 11/15/17 11/15/17 07:50 07:50 Creatine Kinase 717 H CK-MB (CK-2) 7.67 H Troponin I NT-Pro-B Natriuret Pep Impressions: Head CT 11/14/17 14:16 IMPRESSION: CHRONIC CHANGES OF ATROPHY AND MICROVASCULAR ISCHEMIA. NO ACUTE PROCESS. THESE CHANGES ARE MILDLY PROGRESSED WHEN COMPARED 10/19/2014 EVIDENCE OF ACUTE STROKE: NO. Head MRI 11/15/17 00:00 IMPRESSION: MULTIPLE SMALL FOCI OF RESTRICTED DIFFUSION INVOLVING THE LEFT CEREBRAL HEMISPHERE IN A WATERSHED DISTRIBUTION DETAILED ABOVE. NO LARGE TERRITORY INFARCTION, HEMORRHAGE, OR MASS LESION. EVIDENCE OF ACUTE STROKE: YES. LEFT WATERSHED DISTRIBUTION. Carotid Doppler Study 11/16/17 00:00 IMPRESSION: No flow significant stenosis at the right carotid bifurcation. Patient has recent watershed infarct in the left hemisphere, and very slow flow in the left common carotid artery and internal carotid artery. Findings are worrisome for high-grade stenosis or occlusion high in the left internal carotid artery at the skullbase. Consider CT angio of the neck and [facility] for followup Antegrade pulsatile vertebral artery flow bilaterally Head CTA 11/16/17 00:00 IMPRESSION: Occluded left high cervical ICA with clot. Intracranial [facility] collaterals as above. No CT angio evidence of right carotid bifurcation disease. Neck CTA 11/16/17 00:00 IMPRESSION: Occluded left high cervical ICA with clot. Intracranial [facility] collaterals as above. No CT angio evidence of right carotid bifurcation disease. Chest X-Ray 11/25/17 00:00 IMPRESSION: Left lower lobar pneumonia/atelectasis. KUB X-Ray 11/25/17 13:26 IMPRESSION: NG tube with its tip at the level of the mid stomach. Other findings as noted above. 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 alf use Diabetes mellitus complication status: with circulatory complication Diabetes mellitus complication detail: with other circulatory complications Qualified Code(s): E11.59 - Type 2 diabetes mellitus with other circulatory complications; E11.65 - Type 2 diabetes mellitus with hyperglycemia ; E11.65 - Type 2 diabetes mellitus with hyperglycemia; E11.65 - Type 2 diabetes mellitus with hyperglycemia; E11.65 - Type 2 diabetes mellitus with hyperglycemia Is this a current diagnosis for this admission?: Yes (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 Qualified Code(s): I65.22 - Occlusion and stenosis of left carotid artery Is this a current diagnosis for this admission?: Yes (5) Internal carotid artery occlusion Qualifiers: Laterality: left Qualified Code(s): I65.22 - Occlusion and stenosis of left carotid artery Is this a current diagnosis for this admission?: Yes (6) Unresponsive Is this a current diagnosis for this admission?: Yes (7) Hypernatremia Is this a current diagnosis for this admission?: Yes (8) Rhabdomyolysis Qualifiers: Rhabdomyolysis type: non-traumatic Qualified Code(s): M62.82 - Rhabdomyolysis Is this a current diagnosis for this admission?: Yes (9) Noncompliance Is this a current diagnosis for this admission?: Yes (10) Hypokalemia Is this a current diagnosis for this admission?: Yes (11) Oliguria Is this a current diagnosis for this admission?: Yes (12) Fever Qualifiers: Fever type: unspecified Qualified Code(s): R50.9 - Fever, unspecified Is this a current diagnosis for this admission?: Yes (13) Nosocomial pneumonia Is this a current diagnosis for this admission?: Yes (14) Dysphagia due to recent cerebral infarction Is this a current diagnosis for this admission?: Yes (15) Duodenal ulcer Is this a current diagnosis for this admission?: Yes Plan: Start Protonix IV (16) Antral gastritis Is this a current diagnosis for this admission?: Yes
[2017-12-03 21:49] LABS: HEMOGLOBIN 10.1 g/dL (12.0-15.5); MEAN CORPUSCULAR HEMOGLOBIN 25.3 pg (27.0-33.4); MEAN CORPUSCULAR HGB CONC 32.8 g/dL (32.0-36.0); MEAN CORPUSCULAR VOLUME 77 fl (80-97); PLATELET COUNT 298 10^3/uL (150-450); RED BLOOD COUNT 4.01 10^6/uL (3.72-5.28); RED CELL DISTRIBUTION WIDTH 15.3 % (11.5-14.0); WHITE BLOOD COUNT 9.2 10^3/uL (4.0-10.5)
[2017-12-03 22:03] LABS: ANION GAP 9 (5-19); BLOOD UREA NITROGEN 42 mg/dL (7-20); CARBON DIOXIDE 27 mmol/L (22-30); CHLORIDE 108 mmol/L (98-107); GLUCOSE 220 mg/dL (75-110); POTASSIUM 4.4 mmol/L (3.6-5.0); SODIUM 143.7 mmol/L (137-145)
[2017-12-03 22:04] LABS: INTERNATIONAL RATION (INR) 1.31; PROTHROMBIN TIME 16.9 SEC (11.4-15.4)
[2017-12-03] MEDS: PANTOPRAZOLE SODIUM 40 MG VIAL IV SCH (22:04)
[2017-12-03] MEDS: ERTAPENEM SODIUM 1 GM in NORMAL SALINE 50 ML IV SCH (22:04)
[2017-12-04 04:51] LABS: HEMOGLOBIN 9.5 g/dL (12.0-15.5); MEAN CORPUSCULAR HEMOGLOBIN 25.1 pg (27.0-33.4); MEAN CORPUSCULAR HGB CONC 32.8 g/dL (32.0-36.0); MEAN CORPUSCULAR VOLUME 77 fl (80-97); PLATELET COUNT 268 10^3/uL (150-450); RED BLOOD COUNT 3.79 10^6/uL (3.72-5.28); RED CELL DISTRIBUTION WIDTH 15.3 % (11.5-14.0)
[2017-12-04] MEDS: HYDRALAZINE HCL 50 MG TABLET PO SCH ×3 (05:10→22:18)
[2017-12-04] MEDS: METOPROLOL TARTRATE 100 MG TABLET PO SCH ×2 (05:10→17:12)
[2017-12-04] MEDS ORDERED: SCOPOLAMINE HYDROBROMIDE 1.5 MG PATCH.TD72 TD SCH (10:00)
[2017-12-04] MEDS: PANTOPRAZOLE SODIUM 40 MG VIAL IV SCH ×2 (10:23→22:18)
[2017-12-04] MEDS: ENOXAPARIN SODIUM INJ 40 MG/0.4 ML DISP.SYRIN SUBCUT SCH (10:31)
[2017-12-04] MEDS: ASPIRIN 300 MG SUPP, RECTAL PR SCH (10:32)
[2017-12-04] MEDS: LOSARTAN POTASSIUM 50 MG TABLET PO SCH (17:12)
[2017-12-04] MEDS: AMLODIPINE BESYLATE 5 MG TABLET PO SCH (17:13)
[2017-12-04 17:38] LABS: ABSOLUTE LYMPHOCYTES# (MANUAL) 0.9 10^3/uL (0.5-4.7); ABSOLUTE MONOCYTES # (MANUAL) 0.2 10^3/uL (0.1-1.4); BASOPHILS % (MANUAL) 0 % (0-2); EOSINOPHILS % (MANUAL) 0 % (0-6); LYMPHOCYTES % (MANUAL) 11 % (13-45); MONOCYTES % (MANUAL) 2 % (3-13); SEGMENTED NEUTROPHILS % (MAN) 87 % (42-78); TOTAL CELLS COUNTED 100
[2017-12-04 17:39] LABS: ANISOCYTOSIS SLIGHT; HYPOCHROMASIA SLIGHT; TOXIC GRANULATION SLIGHT
[2017-12-04 17:40] LABS: PLATELET COMMENT ADEQUATE; SCHISTOCYTES SLIGHT
--- NOTE | 2017-12-04 20:47 | PDOC PROGRESS REPORT ---
Subjective Progress Note for:: 12/04/17 Subjective:: Patient was seen by the bedside PEG tube was placed yesterday by Dr. Martinez, she was found to have a bleeding duodenal ulcer Dr Martinez discussed the findings with me he wants patient hemogram monitored closely. She was started on Glucerna at 30 cc/h, she was seen by personnel arbitrator recommendation is followed Reason For Visit: LEFT CEREBRAL INFARCTION Physical Exam Vital Signs: Temp Pulse Resp BP Pulse Ox 99.1 F 83 18 111/63 99 12/04/17 19:50 12/04/17 19:50 12/04/17 19:50 12/04/17 19:50 12/04/17 19:50 Intake & Output 12/03/17 12/04/17 12/05/17 06:59 06:59 06:59 Intake Total 305 275 246 Output Total 575 750 375 Balance -270 475 -129 Weight 78.4 kg General appearance: PRESENT: no acute distress Eye exam: PRESENT: PERRLA Cardiovascular exam: PRESENT: +S1, +S2 GI/Abdominal exam: PRESENT: soft Results Laboratory Results: 12/04/17 04:23 12/03/17 21:30 12/03/17 12/03/17 12/03/17 21:30 21:30 21:30 WBC 9.2 RBC 4.01 Hgb 10.1 L Hct 31.0 L MCV 77 L MCH 25.3 L MCHC 32.8 RDW 15.3 H Plt Count 298 Seg Neutrophils % Lymphocytes % Monocytes % Eosinophils % Basophils % Absolute Neutrophils Absolute Lymphocytes Absolute Monocytes Absolute Eosinophils Absolute Basophils Sodium 143.7 Potassium 4.4 Chloride 108 H Carbon Dioxide 27 Anion Gap 9 BUN 42 H Creatinine 0.87 Est GFR ( Amer) > 60 Est GFR (Non-Af Amer) > 60 Glucose 220 H Calcium 9.0 Blood Type A POSITIVE Antibody Screen NEGATIVE 12/04/17 12/04/17 04:23 04:23 WBC 8.0 Cancelled RBC 3.79 Cancelled Hgb 9.5 L Cancelled Hct 29.0 L Cancelled MCV 77 L Cancelled MCH 25.1 L Cancelled MCHC 32.8 Cancelled RDW 15.3 H Cancelled Plt Count 268 Cancelled Seg Neutrophils % Not Reportable Cancelled Lymphocytes % Not Reportable Cancelled Monocytes % Not Reportable Cancelled Eosinophils % Not Reportable Cancelled Basophils % Not Reportable Cancelled Absolute Neutrophils Not Reportable Cancelled Absolute Lymphocytes Not Reportable Cancelled Absolute Monocytes Not Reportable Cancelled Absolute Eosinophils Not Reportable Cancelled Absolute Basophils Not Reportable Cancelled Sodium Potassium Chloride Carbon Dioxide Anion Gap BUN Creatinine Est GFR ( Amer) Est GFR (Non-Af Amer) Glucose Calcium Blood Type Antibody Screen 11/14/17 11/14/17 11/14/17 19:50 19:50 19:50 Creatine Kinase 872 H CK-MB (CK-2) Troponin I 0.069 NT-Pro-B Natriuret Pep 5630 H 11/14/17 11/15/17 11/15/17 19:50 02:23 02:23 Creatine Kinase 809 H CK-MB (CK-2) 10.20 H 9.38 H Troponin I NT-Pro-B Natriuret Pep 11/15/17 11/15/17 07:50 07:50 Creatine Kinase 717 H CK-MB (CK-2) 7.67 H Troponin I NT-Pro-B Natriuret Pep Impressions: Head CT 11/14/17 14:16 IMPRESSION: CHRONIC CHANGES OF ATROPHY AND MICROVASCULAR ISCHEMIA. NO ACUTE PROCESS. THESE CHANGES ARE MILDLY PROGRESSED WHEN COMPARED 10/19/2014 EVIDENCE OF ACUTE STROKE: NO. Head MRI 11/15/17 00:00 IMPRESSION: MULTIPLE SMALL FOCI OF RESTRICTED DIFFUSION INVOLVING THE LEFT CEREBRAL HEMISPHERE IN A WATERSHED DISTRIBUTION DETAILED ABOVE. NO LARGE TERRITORY INFARCTION, HEMORRHAGE, OR MASS LESION. EVIDENCE OF ACUTE STROKE: YES. LEFT WATERSHED DISTRIBUTION. Carotid Doppler Study 11/16/17 00:00 IMPRESSION: No flow significant stenosis at the right carotid bifurcation. Patient has recent watershed infarct in the left hemisphere, and very slow flow in the left common carotid artery and internal carotid artery. Findings are worrisome for high-grade stenosis or occlusion high in the left internal carotid artery at the skullbase. Consider CT angio of the neck and [place] for followup Antegrade pulsatile vertebral artery flow bilaterally Head CTA 11/16/17 00:00 IMPRESSION: Occluded left high cervical ICA with clot. Intracranial [place] collaterals as above. No CT angio evidence of right carotid bifurcation disease. Neck CTA 11/16/17 00:00 IMPRESSION: Occluded left high cervical ICA with clot. Intracranial [place] collaterals as above. No CT angio evidence of right carotid bifurcation disease. Chest X-Ray 11/25/17 00:00 IMPRESSION: Left lower lobar pneumonia/atelectasis. KUB X-Ray 11/25/17 13:26 IMPRESSION: NG tube with its tip at the level of the mid stomach. Other findings as noted above. Assessment & Plan - Diagnosis (1) Cerebral infarction, left hemisphere Is this a current diagnosis for this admission?: Yes (2) Hypertension Qualifiers: Hypertension type: essential hypertension Qualified Code(s): I10 - Essential (primary) hypertension Is this a current diagnosis for this admission?: Yes (3) Uncontrolled diabetes mellitus Qualifiers: Diabetes mellitus type: type 2 Diabetes mellitus fci insulin use: without fci use Diabetes mellitus complication status: with circulatory complication Diabetes mellitus complication detail: with other circulatory complications Qualified Code(s): E11.59 - Type 2 diabetes mellitus with other circulatory complications; E11.65 - Type 2 diabetes mellitus with hyperglycemia ; E11.65 - Type 2 diabetes mellitus with hyperglycemia; E11.65 - Type 2 diabetes mellitus with hyperglycemia; E11.65 - Type 2 diabetes mellitus with hyperglycemia Is this a current diagnosis for this admission?: Yes (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 Qualified Code(s): I65.22 - Occlusion and stenosis of left carotid artery Is this a current diagnosis for this admission?: Yes (5) Internal carotid artery occlusion Qualifiers: Laterality: left Qualified Code(s): I65.22 - Occlusion and stenosis of left carotid artery Is this a current diagnosis for this admission?: Yes (6) Unresponsive Is this a current diagnosis for this admission?: Yes (7) Hypernatremia Is this a current diagnosis for this admission?: Yes (8) Rhabdomyolysis Qualifiers: Rhabdomyolysis type: non-traumatic Qualified Code(s): M62.82 - Rhabdomyolysis Is this a current diagnosis for this admission?: Yes (9) Noncompliance Is this a current diagnosis for this admission?: Yes (10) Hypokalemia Is this a current diagnosis for this admission?: Yes (11) Oliguria Is this a current diagnosis for this admission?: Yes (12) Fever Qualifiers: Fever type: unspecified Qualified Code(s): R50.9 - Fever, unspecified Is this a current diagnosis for this admission?: Yes (13) Nosocomial pneumonia Is this a current diagnosis for this admission?: Yes (14) Dysphagia due to recent cerebral infarction Is this a current diagnosis for this admission?: Yes (15) Bleeding duodenal ulcer Is this a current diagnosis for this admission?: Yes - Plan Summary Plan Summary: Patient we will continue present treatment, IV Protonix for the bleeding duodenal ulcer, the antibiotic is discontinued
[2017-12-05] MEDS: INSULIN LISPRO 100 UNIT/ML 3 ML VIAL SUBCUT PRN ×2 (00:14→06:30)
[2017-12-05 03:47] VITALS: BP 105/51
[2017-12-05] MEDS: HYDRALAZINE HCL 50 MG TABLET PO SCH (06:29)
[2017-12-05] MEDS: METOPROLOL TARTRATE 100 MG TABLET PO SCH (06:30)
[2017-12-05] MEDS ORDERED: EPINEPHRINE INJ 1 MG/10 ML DISP.SYRIN ONE (09:30)
[2017-12-05] MEDS ORDERED: SODIUM BICARBONATE 8.4% INJ 50 MEQ/50 ML DISP.SYRIN ONE (09:30)
--- NOTE | 2017-12-06 18:21 | Progress Note ---
Provider Note Provider Note: CONTINUOUS MINING OPERATOR was called around 7:25. Upon arrival to patient's room nurse notified that patient has a had a history of multiple strokes. On monitor she was bradycardic and upon arrival to patient's room she was gasping. We started resuscitating patient at 7:35. Patient was administered 1 amp of epi at 7:35. We were able to obtain a pulse at 7:39 and patient was intubated by anesthesia at 7:44. Another amp of epi was given and she was also administer 1 L normal saline bolus. At this point in time patient was transferred to intensive care unit. By the time patient arrived to ICU, CORRIE BLUE was called in and resusctiation by ACLS was restarted. She was administered one amp of of epinephrine. Upon arrival to patient's room opted to call off the code since cardiac activity related to epinephrine. It is noteworthy to mention that this patient does not belong to the hospitalist group but to Dr. Martinez. On-call physician was kept abreast
--- NOTE | 2017-12-07 18:25 | Death Summary ---
Summary Date : 12/05/17 Time of :: 08:07 Resuscitation Status: Full Code - Final Diagnosis (1) Cerebral infarction, left hemisphere Is this a current diagnosis for this admission?: Yes (2) Hypertension Is this a current diagnosis for this admission?: Yes (3) Uncontrolled diabetes mellitus Is this a current diagnosis for this admission?: Yes (4) Internal carotid artery thrombosis Is this a current diagnosis for this admission?: Yes (5) Internal carotid artery occlusion Is this a current diagnosis for this admission?: Yes (6) Unresponsive Is this a current diagnosis for this admission?: Yes (7) Hypernatremia Is this a current diagnosis for this admission?: Yes (8) Rhabdomyolysis Is this a current diagnosis for this admission?: Yes (9) Noncompliance Is this a current diagnosis for this admission?: Yes (10) Hypokalemia Is this a current diagnosis for this admission?: Yes (11) Oliguria Is this a current diagnosis for this admission?: Yes (12) Fever Is this a current diagnosis for this admission?: Yes (13) Nosocomial pneumonia Is this a current diagnosis for this admission?: Yes (14) Dysphagia due to recent cerebral infarction Is this a current diagnosis for this admission?: Yes (15) Bleeding duodenal ulcer Is this a current diagnosis for this admission?: Yes Hospital Course:: Patient 62-year-old female with history of CVA with left-sided paralysis is extremely noncompliant, the last office visit was 2 years ago, hemoglobin A1c is more than 14 she presented to the emergency room for evaluation of altered mental status in the emergency room CT head was done it was nondiagnostic MRI brain was done, showed, multiple small foci of restricted diffusion involving the left cerebral hemisphere in a watershed distribution involving the frontal, parietal, occipital lobes compatible with acute stroke. There was also elevated CPK suggesting rhabdomyolysis. She was virtually unresponsive from day 1 of admission to the hospital. She remained unresponsive throughout hospital stay hospital course was complicated with sepsis, urinary tract infection and pneumonia. After consultation with family she was initially made a DNR status because of the extremely poor prognosis, but siblings from [facility] wants the DNR status rescinded. The prognosis was extremely poor in this patient she also was empirically treated with IV antibiotic, initially a nasogastric tube was inserted for the purpose of nutrition and also to administer medication but she had large volume residual this was discontinued. Consultation was requested from GI for PEG tube placement because family insisted that she get a PEG tube for nutrition, we had multiple conferences with family, discharge planning and also the nurses tried to explain to the family how severe her condition was and that she has a very poor prognosis but they insisted she be a full code. this patient is status post stroke she has a history of right cerebral infarction with left-sided paralysis, she is now presenting with left cerebral infarction and she remained virtually unresponsive throughout her stay in the hospital she Developed cardiopulmonary arrest earlier this morning she was declared after undergoing CPR and ACLS protocol
== END 2017-12-05 10:50 | DRG 64 ==
LOC: ER 13:52 → EH 19:13 → 3W 22:27 → ICU 12-05 07:54
PROVIDERS: ADMIT Internal Medicine; ATTEND Internal Medicine
PROC: 3E0G8GC Introduction of Other Therapeutic Substance into Upper GI, Via Natural or Artificial Opening Endoscopic (ICD-10-PCS; principal; 2017-12-03 19:15)
PROC: 0DH63UZ Insertion of Feeding Device into Stomach, Percutaneous Approach (ICD-10-PCS; 2017-12-03 19:15)
PROC: 0DB68ZX Excision of Stomach, Via Natural or Artificial Opening Endoscopic, Diagnostic (ICD-10-PCS; 2017-12-03 19:15)
DX: I63.232 Cerebral infarction due to unspecified occlusion or stenosis of left carotid arteries (principal); J18.9 Pneumonia, unspecified organism; A41.9 Sepsis, unspecified organism; K26.4 Chronic or unspecified duodenal ulcer with hemorrhage; N17.9 Acute kidney failure, unspecified; M62.82 Rhabdomyolysis; G81.94 Hemiplegia, unspecified affecting left nondominant side; E87.0 Hyperosmolality and hypernatremia; N39.0 Urinary tract infection, site not specified; I69.951 Hemiplegia and hemiparesis following unspecified cerebrovascular disease affecting right dominant side; E78.00 Pure hypercholesterolemia, unspecified; I10 Essential (primary) hypertension; E11.65 Type 2 diabetes mellitus with hyperglycemia; E87.6 Hypokalemia; R34 Anuria and oliguria; K20.8 Other esophagitis; K29.50 Unspecified chronic gastritis without bleeding; Z53.09 Procedure and treatment not carried out because of other contraindication; Y95 Nosocomial condition; R13.10 Dysphagia, unspecified; D64.9 Anemia, unspecified; Z91.19 Patient's noncompliance with other medical treatment and regimen; Z79.84 Long term (current) use of oral hypoglycemic drugs; Z79.82 Long term (current) use of aspirin; Z79.899 Other long term (current) drug therapy
CPT/HCPCS: 00731; 31500; 36415; 43236; 43246; 43255; 70450; 70496; 70498; 70551; 71045; 74018; 80048; 80053; 80076; 80307; 81001; 82140; 82150; 82550; 82553; 82565; 82570; 82803; 82962; 83036; 83605; 83690; 83735; 83880; 84100; 84156; 84166; 84439; 84443; 84484; 85025; 85027; 85610; 85730; 86850; 86900; 86901; 87040; 87086; 88305; 88342; 93005; 93010; 93306; 93880; 95819; 96361; 96374; 96375; 99285; G8978-GP; G8979-GP; G8987-GO; G8988-GO; J0171; J0360; J0696; J1335; J1610; J1630; J1644; J1650; J1815; J1940; J2250; J2310; J2704; J3010; J3480; J3490; J7030; J7060; S0164